=== PATIENT | female | born 1985 | race Caucasian/White ===

== ENCOUNTER 2024-12-15 10:49 | Outpatient (OUT) | payer MEDICARE, MEDICAID, SELFPAY ==
--- OUTSIDE RECORDS SUMMARY | 2024-12-05 13:10 | XMS_ITS | Encounter Summary ---
Author Organization [facility] Address [address] [place] [address] Care Team Providers Care Director Of Investigations Name Role Phone Alvarado, Amy Primary Care Provider [phone] Reason for Visit * Reason Comments Pre-op Visit Encounter Details Date Type Department Care Team ([facility] Contact Info) Description 12/05/2024 1:10 PM EDT Consult [facility] [address] [place] [address] Riley King DO [address] [place], [place] [id number] Pre-operative exam; Pain of ovary; History of ovarian cyst Social History Tobacco Use Types Packs/Day Years Used Date Smoking Tobacco: Former Cigarettes 1.5 15 Smokeless Tobacco: Never Alcohol Use Standard Drinks/Week Comments Never 0 (1 standard drink = 0.6 oz pur e alcohol) Comments No Sex and Gender Information Value Date Recorded Sex Assigned at Not on file Legal Sex Female 7:00 PM EDT Gender Identity Not on file Sexual Orientation Not on file documented as of this encounter Last Filed Vital Signs Vital Sign Reading Time Taken Comments Blood Pressure 128/78 12/05/2024 1:16 PM EDT Pulse - - Temperature - - Respiratory Rate - - Oxygen Saturation - - Inhaled Oxygen Concentration - - Weight 109 kg (240 lb 6.4 oz) 12/05/2024 1:16 PM EDT Height - - Body Mass Index 38.8 10/03/2024 3:20 PM EDT documented in this encounter Progress Notes * Jojo Rothman, RELIEF MASTER - 12/05/2024 1:10 PM EDT Reason for Appointment: Patient ID: Gin Ge is a 39 y.o. female who presents for Pre-op Visit Patient presents today for Pre Op appointment. Patient is scheduled to undergo Diagnostic Laparoscopy, possible FABIANA, possible FOE, possible BSO on 12/29/[address] King at [facility]. MEDICATIONS Current Outpatient Medications Medication Instructions alpha tocopherol (Vitamin E) 400 units capsule busPIRone (BUSPAR) 30 mg, 2 times daily clonazePAM (KlonoPIN) 1 MG tablet TAKE 1 TABLET BY ORAL ROUTE 4 TIMES PER DAY DIAGNOSIS CODE: F41.9 desvenlafaxine (PRISTIQ) 200 mg, Daily esomeprazole (NexIUM) [address] capsule TAKE 1 CAPSULE BY MOUTH TWICE DAILY BEFORE MEALS hydrOXYzine pamoate (Vistaril) 25 MG capsule TAKE 1 CAPSULE BY MOUTH 3 TIMES A DAY NEEDED FOR ANXIETY lamoTRIgine (LaMICtal) 100 MG tablet 1 tablet, Nightly lamoTRIgine (LaMICtal) 200 MG tablet TAKE 1 TABLET BY ORAL ROUTE PER AT BEDTIME TO TAKE WITH A 100 MG FOR A TOTAL OF 300 MG AT NIGHT methocarbamol (Robaxin) 500 MG tablet TAKE 1 TO 2 TABLETS TWICE A DAY NEEDED FOR MUSCLE PAIN ondansetron ODT (Zofran-ODT) 4 MG disintegrating tablet TAKE 1 TABLET BY MOUTH EVERY 8 HOURS NEEDED FOR NAUSEA AND VOMITING prazosin (Minipress) 2 MG capsule TAKE 2 CAPSULE BY ORAL ROUTE PER AT BEDTIME CHANGE IN DOSAGE pregabalin (LYRICA) 200 mg, 3 times daily traZODone (Desyrel) 100 MG tablet TAKE 3 TABLETS BY MOUTH AT BEDTIME Vraylar 6 MG capsule TAKE 1 CAPSULE BY MOUTH EVERY DAY AT BEDTIME ALLERGIES Allergies Allergen Reactions Amoxicillin-Pot Clavulanate Unknown Clindamycin Anaphylaxis Baclofen Unknown Latex Rash Naproxen Unknown Altered liver function Betamethasone Hallucinations Extreme anxiety Metronidazole GI intolerance Sulfamethoxazole-Trimethoprim Hallucinations Zonisamide Hallucinations zonegran PROBLEMS Active Ambulatory Problems Diagnosis Date Noted Localized osteoarthritis of right knee 10/09/2022 Acute pain of right knee 10/09/2022 Internal derangement of right knee 10/09/2022 S/P right knee arthroscopy 12/07/2022 Resolved Ambulatory Problems Diagnosis Date Noted No Resolved Ambulatory Problems Past Medical History: Diagnosis Date Anxiety Arthritis Bipolar 1 disorder (HCC) Depressed Fibromyalgia GERD (gastroesophageal reflux disease) Hepatitis Hyperlipemia Hypertension IBS (irritable bowel syndrome) PTSD (post-traumatic stress disorder) Spinal stenosis Spondylolisthesis HISTORY PAST MEDICAL HISTORY SOCIAL HISTORY Past Medical History: Diagnosis Date Anxiety Arthritis Bipolar 1 disorder (HCC) Depressed Fibromyalgia GERD (gastroesophageal reflux disease) Hepatitis Hyperlipemia Hypertension IBS (irritable bowel syndrome) PTSD (post-traumatic stress disorder) Spinal stenosis Spondylolisthesis Social History Tobacco Use Smoking status: Former Current packs/day: 1.50 Average packs/day: 1.5 packs/day for 15.0 years (22.5 ttl pk-yrs) Types: Cigarettes Smokeless tobacco: Never Vaping Use Vaping status: Never Used Substance Use Topics Alcohol use: Never Drug use: Never FAMILY HISTORY Family History Problem Relation Name Age of Onset Hypothyroidism Father Grandpa Diabetes Father Grandpa Mental illness Father Grandpa Hypertension Father Grandpa Heart disease Father Grandpa Cancer Maternal Grandmother Juhi Chime Lung disease Maternal Grandfather Don Chime Heart disease Maternal Grandfather Don Chime Stroke Maternal Grandfather Don Chime Cancer Maternal Grandfather Don Chime Diabetes Maternal Grandfather Don Chime SURGICAL HISTORY Past Surgical History: Procedure Laterality Date CHOLECYSTECTOMY 05/03/2005 HIP ARTHROPLASTY KNEE ARTHROPLASTY PARTIAL HYSTERECTOMY 05/03/2013 TONSILLECTOMY 05/03/1992 WISDOM TOOTH EXTRACTION REVIEW OF SYSTEMS Review of Systems: Review of Systems Constitutional: Negative. HENT: Negative. Eyes: Negative. Respiratory: Negative. Cardiovascular: Negative. Gastrointestinal: Negative. Genitourinary: Positive for pelvic pain. Musculoskeletal: Negative. Skin: Negative. Neurological: Negative. All other systems reviewed and are negative. Hematological: Negative. Endocrine: Negative. Allergic/Immunologic: Negative. OBJECTIVE Objective: Physical Exam Constitutional: Appearance: Normal appearance. She is well-developed. Cardiovascular: Rate and Rhythm: Normal rate and regular rhythm. Pulmonary: Effort: Pulmonary effort is normal. Breath sounds: Normal breath sounds. Abdominal: General: Bowel sounds are normal. There is no distension. Palpations: Abdomen is soft. Tenderness: There is no abdominal tenderness. There is no guarding or rebound. Musculoskeletal: General: No swelling. Normal range of motion. Right lower leg: No edema. Left lower leg: No edema. Neurological: Mental Status: She is alert and oriented to person, place, and time. Skin: General: Skin is warm and dry. Psychiatric: Mood and Affect: Mood normal. Behavior: Behavior normal. Vitals and nursing note reviewed. Exam conducted with a bumper and painter present. Vitals: Estimated body mass index is 38.8 kg/m?? as calculated from the following: Height as of 10/03/24: 5' 6 . Weight as of this encounter: 240 lb 6.4 oz. BP: 128/78 No LMP recorded (lmp unknown). Patient has had a hysterectomy. ASSESSMENT & PLAN ICD-10-CM 1. Pre-operative exam Z01.818 2. Pain of ovary N94.89 3. History of ovarian cyst Z87.42 Pre Op: Patient is doing well but has complaints of pelvic pain, ovarian cyst. I have discussed conservative management vs. surgical management with the patient in detail and patient desires surgical management at this time. Patient will undergo Diagnostic Laparoscopy, possible FABIANA, possible FOE, possible BSO on 12/29/24. Surgical consents were signed, mmc was reviewed, and patient is to proceed to [facility] OR. Follow Up: Patient is to follow up between 1-2 weeks post operative to assess proper healing and recovery fromprocedure. Documented by Jojo Rothman LPN on behalf of: Riley King DO documented in this encounter Plan of Treatment Upcoming Encounters Date Type Department Care Team (Late st Contact Info) Description 12/18/2024 1:00 PM EDT Office Visit [facility] [address] [place] [address] Gretel Burton PA [address] [place] [address] 01/04/2025 10:50 AM EDT Office Visit [facility] [address] [place] [address] Riley King DO [address] [place] [address] documented as of this encounter Visit Diagnoses Diagnosis Pre-operative exam Unspecified pre-operative examination Pain of ovary History of ovarian cyst Personal history of other genital system and obstetric disorders documented in this encounter Care Teams Director Of Investigations Relationship Specialty Start Date End Date Nica Alvarado DO [address] [place] [id number] PCP - General Family Medicine 10/09/22 documented as of this encounter
--- OUTSIDE RECORDS SUMMARY | 2024-12-15 10:56 | XMS_ITS | Clinical Summary ---
Author Organization [facility] Address [facility] [place] [address] Care Team Providers Care Mobile Paint Specialist Name Role Phone Kwesi Hernandez Unavailable [phone] Lesli Whatley CONSTRUCTION LINEMAN Unavailable Lesli Whatley CONSTRUCTION LINEMAN Primary Care Provider Lian Acosta APRN.CONSTRUCTION LINEMAN Unavailable Lazaro Peck MD Unavailable Allergies Active Allergy Reactions Criticality Noted Date Comments Adhesive Rash 10/16/2014 Amoxicillin-Pot Clavulanate Mental Status Change 10/16/2014 Baclofen Mental Status Change 07/09/2023 Sulfamethoxazole-Trimet hoprim Mental Status Change 10/20/2018 Clindamycin Anaphylaxis 10/16/2014 Metronidazole Vomiting 10/20/2018 Latex Rash 10/16/2014 Naproxen Unknown 10/16/2014 Altered liver function Betamethasone Dipropionate Mental Status Change 10/16/2014 Extreme anxiety Zonisamide Mental Status Change 10/20/2018 zonegran Medications desvenlafaxine ER (PRISTIQ) 100 mg 24 hr tablet Take 100 mg by mouth once daily. Takes 200mg Active clonazePAM (KLONOPIN) 1 mg tablet Take 1 mg by mouth four times daily. Active traZODone HCl 300 mg tablet Take 300 mg by mouth daily at bedtime. Active methocarbamol (ROBAXIN) 500 mg tablet Take 500 mg by mouth twice daily. Active Cetirizine (ZYRTEC) 10 mg cap Take by mouth daily at bedtime. Active PV W-O ORTEGA/FERROUS FUMARATE/FA (M-VIT ORAL) Take by mouth. Ac tive CALCIUM CARBONATE/VITAMIN D3 (CALCIUM + D ORAL) Take by mouth. Activ e Flaxseed Oil oil Act alexa alpha tocopheryl acetate (VITAMIN E) 400 unit capsule Take 400 Units by mouth twice daily. Active vitamin b complex (B-100 COMPLEX) tab Take 1 tablet by mouth once daily. Active FOLIC ACID ORAL Take by mouth. Active prazosin (MINIPRESS) 1 mg cap Take 3 capsules by mouth daily at bedtime. 5 Active Additional Information Patient taking differently: 4 mgORAL AT BEDTIME, Reason: Other, Informant: Patient, Reported on 08/17/2024 Pregabalin (LYRICA) 200 mg capsule Take 200 mg by mouth three times daily. Active busPIRone (BUSPAR) 15 mg tablet Take 30 mg by mouth twice daily. 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 Active estradiol (ESTRACE) 1 mg tablet Take 1 mg by mouth once daily. Active acetaminophen (ACETAMINOPHEN EXTRA STRENGTH) 500 mg tablet Take 1-2 tablets by mouth every 6 hours as needed for Pain. 60 tablet 0 Active hyoscyamine (LEVSIN) 0.125 mg tablet Take 1 tablet by mouth every 4 hours as needed. 60 tablet 2 5 Active esomeprazole (NEXIUM) 20 mg capsule Take 1 capsule by mouth two times a day before meals. 180 capsule 3 5 Active Active Problems Problem Noted Date Diagnosed Date Obesity (BMI 30-39.9) 01/03/2020 Assessment & Plan (01/03/2020 12:01 PM EDT): Assessment: Body mass index is 38.67 kg/m . Weight reduction encouraged. PONV (postoperative nausea and vomiting) 020 Irritable bowel syndrome wit h both constipation and diarrhea 11/02/2019 Assessment & Plan (11/02/2019 4:24 PM EDT): Assessment: meds as needed Bipolar 1 disorder 11/02/2019 Assessment & Plan (01/03/2020 12:01 PM EDT): Assessment: Pt. reports mood stable with meds Assessment & Plan (11/02/2019 4:24 PM EDT): Assessment: stable on meds Diaphoresis 09/13/2018 Gastroesophageal reflux disease 04/21/2018 Overview (04/21/2018): Added automatically from request for surgery [id number] Assessment & Plan (01/03/2020 12:00 PM EDT): Assessment: Medication for Control fo symptoms per Pt. report Assessment & Plan (11/02/2019 4:28 PM EDT): Assessment: controlled on rx Central hearing loss, bilateral 09/15/2016 Auditory neuropathy 09/15/2016 Chronic pain 10/16/2014 PTSD (post-traumatic stress disorder) Overview (10/16/2014): had to place child for adoption at age 13 Anxiety and depression Overview (10/16/2014): Lacy Mello [facility] counseling Assessment & Plan (11/02/2019 4:24 PM EDT): Assessment: stable on medications OCD (obsessive compulsive disorder) Fibromyalgia Assessment & Plan (01/03/2020 11:59 AM EDT): Assessment: Managed with meds Pt. reports stable Assessment & Plan (11/02/2019 4:23 PM EDT): Assessment: treated with B12 and meds Resolved Problems Problem Noted Date Diagnosed Date Resolved Date Night sweats 09/13/2018 11/02/2019 Smoker 11/02/2019 Immunizations Immunization Administration Dates Next Due influenza (IIV3) vaccine, tr ivalent (AFLURIA, FLULAVAL, FLUVIRIN, FLUZONE) 01/22/2011 influenza (IIV3) vaccine, tr ivalent, PF (AFLURIA, FLUARIX, FLULAVAL, FLUVIRIN, FLUZONE) 01/20/2016 influenza (IIV4) vaccine, ag e 6 mo - 64 yr, quadrivalent, PF (AFLURIA, FLUARIX, FLULAVAL, FLUZONE) 02/27/2019,02/23/2018,02/13/2015 influenza (ccIIV4) vaccine, age 6+ mo, quadrivalent, PF (FLUCELVAX) 03/30/2017 influenza vaccine, unspecified formulation 01/01 influenza vaccine, whole virus 02/01/2015,2013 tetanus diphtheria pertussis (Tdap) vaccine, age 7+ yr (ADACEL, BOOSTRIX) 01/06/2019,01/22/2011 Family History Medical History Relation Comments Arthritis Father GERD Father Stroke Maternal Grandfather Cancer Maternal Grandmother Arthritis Mother Diabetes Mother GERD Mother high blood pressure Mother LACTOSE INTOLERANCE Sister Relation Status Comments Father Alive Maternal Grandfather Maternal Grandmother Mother Alive Sister Social History Tobacco Use Types Packs/Day Years Used Date Smoking Tobacco: Former Cigarettes 0.5 17 0 08/22/1999 - 08/21/2016 Smokeless Tobacco: Never Tobacco Cessation:Counseling Given: Not Answered Alcohol Use Standard Drinks/Week Comments Not Currently 0 (1 standard drink = 0.6 oz pur e alcohol) social- rare PHQ-2 Answer Date Recorded PHQ-2 score 0 11/14/2018 Area Deprivation Index Answer Date Juan Jose rded National Score (1-100), lower number is lower ri sk 62 07/04/2024 State Score (1-10), lower number is lower risk 4 07/04/2024 Data from: https://www.neighborhoodatlas.medicine.[facility].edu/. Last address used for calculation [address] [facility] 07/04/2024 Comments No Sex and Gender Information Value Date Recorded Sex Assigned at Not on file Legal Sex Female 11:28 AM EDT Gender Identity Not on file Sexual Orientation Not on file Occupation Industry Job Start Date Job End Date [employer] Not on file Not on file Not on file Last Filed Vital Signs Vital Sign Reading Time Taken Comments Blood Pressure 140/90 08/17/2024 11:01 AM EDT Pulse 60 08/17/2024 11:01 AM EDT Temperature 36.7 C (98 F) 08/17/2024 11:01 AM EDT Respiratory Rate 16 07/09/2023 1:21 PM EST Oxygen Saturation 100% 07/09/2023 1:21 PM EST Inhaled Oxygen Concentration - - Weight 105.7 kg (233 lb) 08/17/2024 11:01 AM EDT Height 167.6 cm (5' 6 ) 08/17/2024 11:01 AM EDT Body Mass Index 37.61 08/17/2024 11:01 AM EDT Plan of Treatment Health Maintenance Due Date Last Done Comments HIV Screening 01/01/2002 Hepatitis C Screening 01/01/2002 Hepatitis B Vaccine (1 of 3 - 19+ 3-dose series) 01/01/2003 Cervical Cancer Screening 01/01/2005 HPV Vaccine (1 - 3-dose SCDM series) 01/01/2011 Medicare Annual Wellness Visit 12/02/2015 Mammogram Screening 2024 Influenza Vaccine (#1) 2025 9, 01/01/2019, 02/23/2018, Additional history exists DTaP,Tdap,Td Vaccine (3 - Td or Tdap) 01/06/2029 01/06/2019, 01/22/2011 Medical Devices Implanted Type Area Plasterer Apprentice Device Identifier Shelf Expiration Date Model / Serial / Lot Fibertak Knotless Hip Suture Lee W/#2 Fiberwire Cl Suture Implanted:Qty: 1 on 01/18/2020 at [facility] Lee Right: Bone - Hip [employer] 11/30/2024 [id number] / / [id number] Description:KNOTLESS HIP FIB ERTAK Fibertak Knotless Hip Suture Lee W/#2 Fiberwire Cl Suture Implanted:Qty: 1 on 01/18/2020 at [facility] Lee Right: Bone - Hip [employer] 11/30/2024 [id number] / / [id number] Description:KNOTLESS HIP FIB ERTAK Fibertak Knotless Hip Suture Lee W/#2 Fiberwire Cl Suture Implanted:Qty: 1 on 01/18/2020 at [facility] Lee Right: Bone - Hip [employer] 11/30/2024 [id number] / / [id number] Description:KNOTLESS HIP FIB ERTAK Insurance [place]ICAID [place] MEDICARE [place]ICARE [place] Care Teams Mobile Paint Specialist Relationship Specialty Start Date End Date Lesli Whatley, CONSTRUCTION LINEMAN [address] [place] [phone] PCP - General Family Medicine 08/10/18 Kwesi Hernandez [address] [place] [facility] [place] [address] Pain Management 09/17/14 Lesli Whatley, CONSTRUCTION LINEMAN [address] [facility] [place] [phone] Referring Family Medicine 08/08/18 Lian Acosta APRN.CONSTRUCTION LINEMAN [address] [facility] [address] [place] [address] Gastroenterology 06/16/23 Lazaro Peck MD [address] [facility] [address] [place] [address] Gastroenterology 06/16/23
--- OUTSIDE RECORDS SUMMARY | 2024-12-15 10:56 | XMS_ITS | Encounter Summary ---
Author Organization [facility] Address [address] [place] [address] Care Team Providers Care Housing Grant Analyst Name Role Phone Kwesi Hernandez Unavailable [phone] Lesli Whatley HEEL PADDER Unavailable Lesli Whatley HEEL PADDER Primary Care Provider Lian Acosta APRN.HEEL PADDER Unavailable Lazaro Peck MD Unavailable Source Comments In the event this information is protected by the Federal Confidentiality of Alcohol and Drug AbusePatient Records regulations: The Federal rules restrict any use of the information to criminally investigate or prosecute any alcohol or drug abuse patient.[facility] Encounter Details Date Type Department Care Team (Latest Contact Info) Description 11/21/2019 [facility] Medical Advice [facility] [address] [place], [place] [id number] Bonifacio Serrano MD [address] [place] [address] RE: Non-Urgent Medical Question Social History Tobacco Use Types Packs/Day Years Used Date Smoking Tobacco: Former Cigarettes 0.5 17 0 08/22/1999 - 08/21/2016 Smokeless Tobacco: Never Alcohol Use Standard Drinks/Week Comments Not Currently 0 (1 standard drink = 0.6 oz pur e alcohol) social- rare PHQ-2 Answer Date Recorded PHQ-2 score 0 11/14/2018 Comments No Sex and Gender Information Value Date Recorded Sex Assigned at Not on file Legal Sex Female 11:28 AM EDT Gender Identity Not on file Sexual Orientation Not on file 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 No / Unsure 11/17/2019 11:40 AM EDT documented as of this encounter Functional Status * Are you deaf or do you have serious difficulty hearing? Answer Date of Assessment Author No 10/16/2014 2:16 PM EDT Lorna Briones LPN * Are you blind or do you have serious difficulty seeing, even when wearing glasses? Answer Date of Assessment Author No 10/16/2014 2:16 PM EDT Lorna Briones LPN * Do you have serious difficulty walking or climbing stairs? Answer Date of Assessment Author Yes 10/16/2014 2:16 PM EDT Lorna Briones LPN * Do you have difficulty dressing or bathing? Answer Date of Assessment Author Yes 10/16/2014 2:16 PM EDT Lorna Briones LPN * Because of a physical, mental, or emotional condition, do you have difficulty doing errands alone such as visiting a doctor's office or shopping? Answer Date of Assessment Author Yes 10/16/2014 2:16 PM EDT Lorna Briones LPN documented as of this encounter Mental Status * Because of a physical, mental, or emotional condition, do you have serious difficulty concentrating, remembering, or making decisions? Answer Entry Date Author Yes 10/16/2014 2:16 PM EDT Lorna Briones LPN documented in this encounter Plan of Treatment Not on file documented as of this encounter Visit Diagnoses Not on filedocumented in this encounter Care Teams Housing Grant Analyst Relationship Specialty Start Date End Date Lesli Whatley, HEEL PADDER [address] [address] PCP - General Family Medicine 08/10/18 Kwesi Hernandez [address] [facility] [place] [address] Pain Management 09/17/14 Lesli Whatley, HEEL PADDER [address] [address] Referring Family Medicine 08/08/18 Lian Acosta APRN.HEEL PADDER [address] [place] [address] Gastroenterology 06/16/23 Lazaro Peck MD [address] [place] [address] Gastroenterology 06/16/23 documented as of this encounter
--- OUTSIDE RECORDS SUMMARY | 2024-12-15 10:56 | XMS_ITS | Encounter Summary ---
Author Organization [facility] Address [address] [place] [address] Care Team Providers Care Indigo Mixer Name Role Phone Ncia Alvarado Primary Care Provider [phone] Encounter Details Date Type Department Care Team ([facility] Contact Info) Description 12/03/2022 Clinisync Result Encounter [facility] External Department Unsolicited Amanuel Jj DO [address] [place] [address] Social History Tobacco Use Types Packs/Day Years Used Date Smoking Tobacco: Never Smokeless Tobacco: Never Alcohol Use Standard Drinks/Week Comments Never 0 (1 standard drink = 0.6 oz pur e alcohol) Comments Unknown Sex and Gender Information Value Date Recorded Sex Assigned at Not on file Legal Sex Female 7:00 PM EDT Gender Identity Not on file Sexual Orientation Not on file COVID-19 Exposure Response Date Recorded In the last 10 days, have yo u been in contact with someone who was confirmed or suspected to have Coronavirus/COVID-19? No / Unsure 11/19/2022 10:47 AM EDT documented as of this encounter Plan of Treatment Upcoming Encounters Date Type Department Care Team ([facility] Contact Info) Description 12/18/2024 1:00 PM EDT Office Visit [facility] [address] [place] [address] Gretel Burton PA [address] [place] [address] 01/04/2025 10:50 AM EDT Office Visit [facility] [address] [place] [place] [address] Riley King DO [address] [place] [address] documented as of this encounter Procedures Procedure Name Priority Date/Time Associated Diagnosis Comments US LE VENOUS DUPLEX RIGHT 12/03/2022 4:23 PM EDT documented in this encounter Results * US LE VENOUS DUPLEX RIGHT (12/03/2022 4:23 PM EDT) Anatomical Region Laterality Modality Other 12/03/2022 4:23 PM EDT Narrative 12/03/2022 5:22 PM EDT Exam Date/Time: 12/03/2022 17:12 EDT Reason for Exam: RIGHT CALF PAIN Report IMPRESSION: NO RIGHT LOWER EXTREMITY DVT IDENTIFIED. EXAM: US LE Venous Duplex Right DATE: 12/03/2022 CLINICAL HISTORY: RIGHT CALF PAIN. COMPARISON: None available. TECHNIQUE: Grayscale, compression, color and waveform Doppler analysis of the right lower extremity venous systems was performed with augmentation. Spectral Doppler waveforms were evaluated for spontaneity, phasicity and appropriate augmentation. FINDINGS: There is no deep or superficial venous thrombosis, abnormal masses, organized fluid collections, or other findings of concern identified within the right lower extremity. No DVT present within the visualized left common femoral vein. Ordering Provider: Amanuel Jj FINAL REPORT Dictated: 12/03/2022 5:19 pm Jagdeep White MD Signed (Electronic Signature): 12/03/2022 5:19 pm Signed by: Jagdeep White MD Transcribed by: ALFREDITO Technologist: ALMA Procedure Note Radiology, Radiologist, - 12/03/2022 Exam Date/Time: 12/03/2022 17:12 EDT Reason for Exam: RIGHT CALF PAIN Report IMPRESSION: NO RIGHT LOWER EXTREMITY DVT IDENTIFIED. EXAM: US LE Venous Duplex Right DATE: 12/03/2022 CLINICAL HISTORY: RIGHT CALF PAIN. COMPARISON: None available. TECHNIQUE: Grayscale, compression, color and waveform Doppler analysis ofthe right lower extremity venous systems was performed with augmentation. Spectral Doppler waveforms were evaluated for spontaneity, phasicity andappropriate augmentation. FINDINGS: There is no deep or superficial venous thrombosis, abnormal masses,organized fluid collections, or other findings of concern identified within the rightlower extremity. No DVT present within the visualized left common femoralvein. Ordering Provider: Amanuel Jj FINAL REPORT Dictated: 12/03/2022 5:19 pm Jagdeep White MD Signed (Electronic Signature): 12/03/2022 5:19 pm Signed by: Jagdeep White MD Transcribed by: ALFREDITO Technologist: ALMA Amanuel Jj DO [facility] Final Resu lt documented in this encounter Visit Diagnoses Not on filedocumented in this encounter Care Teams Indigo Mixer Relationship Specialty Start Date End Date Nica Alvarado DO [address] [place] [address] [facility] [place] [address] PCP - General Family Medicine 10/09/22 documented as of this encounter
--- OUTSIDE RECORDS SUMMARY | 2024-12-15 10:57 | XMS_ITS | Encounter Summary ---
Author Organization [facility] Address [facility] [place] [address] Care Team Providers Care Acid Adjuster Name Role Phone Kwesi Hernandez Unavailable [phone] Lesli Whatley MILITARY COMMUNICATIONS SPECIALIST Unavailable [phone] Lesli Whatley MILITARY COMMUNICATIONS SPECIALIST Primary Care Provider [phone] Lian Acosta APRN.MILITARY COMMUNICATIONS SPECIALIST Unavailable [phone] Lazaro Peck MD Unavailable Source Comments In the event this information is protected by the Federal Confidentiality of Alcohol and Drug AbusePatient Records regulations: The Federal rules restrict any use of the information to criminally investigate or prosecute any alcohol or drug abuse patient.[facility] Encounter Details Date Type Department Care Team (Late st Contact Info) Description 10/23/2019 Get Medical Advice General Surgery [address] [facility] [place] [address] Gilberto Mendoza III, MD [address] [place] [place], [place] [id number] RE: Non-Urgent Medical Question Social History Tobacco Use Types Packs/Day Years Used Date Smoking Tobacco: Former Cigarettes 0.5 17 0 08/22/1999 - 08/21/2016 Smokeless Tobacco: Never Alcohol Use Standard Drinks/Week Comments Not Currently 0 (1 standard drink = 0.6 oz pur e alcohol) social PHQ-2 Answer Date Recorded PHQ-2 score 0 11/14/2018 Comments No Sex and Gender Information Value Date Recorded Sex Assigned at Not on file Legal Sex Female 11:28 AM EDT Gender Identity Not on file Sexual Orientation Not on file 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 No / Unsure 10/26/2019 12:08 PM EDT documented as of this encounter Functional [...] Lorna Briones LPN documented in this encounter Miscellaneous Notes * Telephone Encounter - Celeste Florian) - 10/24/2019 9:57 AM EDT Discussed and reviewed films with Dr. Mendoza and will schedule for open repair of ventral incisional hernia. CUR completed and faxed to LN scheduling COVID order placed. I called patient and discussed surgery. Discussed risks of bleeding, infection, post operative pain, chronic pain, recurrence, bowel injury. Discussed post op lifting restrictions, no driving on narcotic pain meds, no submerging x 2 weeks post op. Patient asking for nausea medication. I advised will need to check with her PCP as do not provide medications prior to surgery. We discussed ED paramete rs for acute pain, incarceration. Patient voiced understanding. Advised of covid pre-op testing, self quarantine, wearing a mask into the facility and exposure risk discussion. Patient agreeable and ok to proceed. The patient was offered a surgery/procedure at a [facility] facility. The surgeon's printing sales representative and patient have discussed in detail the risk of exposure to and/or potential harm posed by the COVID-19 virus with having a surgery/procedure at this time versus the risk of delaying the surgery /procedure. It is not possible to know either the risk of delaying the surgery or procedure or chance of getting an infection with perfect accuracy, but a joint decision was made between the patient and the surgeon's printing sales representative to proceed at this time with the scheduled surgery/procedure as indicated on the consent form. * Telephone Encounter - Celeste Florian) - 10/23/2019 3:53 PM EDT Will confirm plan for hernia repair with Dr. Mendoza tomorrow. * Telephone Encounter - Josy Brown) - 10/23/2019 3:34 PM EDT Please review and advise on pt's mychart. documented in this encounter Plan of Treatment Not on file documented as of this encounter Results * PRE-PROCEDURE & PRE-OPERATIVE COVID (11/05/2019 1:40 PM EDT) COVID 19 Source [facility] Nasopharyngeal swab 0 9:39 PM EDT [facility] COVID 19 Result [facility] Negative for COVID19 (SARS CoV2) by PCR. Negative for COVID19 (SARS CoV2) by PCR. 0 6:11 AM EDT [facility] Comment: This test was developed and its performance characteristics determined by [facility]'s [facility]. This test has been authorized by FDA under an Emergency Use Authorization (EUA). This test has been validated in accordance with the FDA's Guidance Document Policy for Diagnostics Testing in Laboratories Certified to Perform High Complexity Testing under CLIA prior to Emergency use Authorization for Coronavirus Disease 2019 during the Public Health Emergency issued on July 01, 2019. Swab of internal nose (specimen) NASOPHARYNGEAL SWAB / Unknown 11/05/2019 1:40 PM EDT 11/05/2019 9:36 PM EDT Celeste Florian PA-C MICROBIOLOGY Edited R esult - Final [facility] [address] [place] [address] [facility] [address] [place] [address] documented in this encounter Visit Diagnoses Diagnosis Incisional hernia, without obstruction or gangrene- Primary Incisional hernia without mention of obstruction or gangrene documented in this encounter Care Teams Acid Adjuster Relationship Specialty Start Date End Date Lesli Whatley, MILITARY COMMUNICATIONS SPECIALIST [address] [place] [address] PCP - General Family Medicine 08/10/18 Kwesi Hernandez [address] [place] [address] Pain Management 09/17/14 Lesli Whatley, MILITARY COMMUNICATIONS SPECIALIST [address] [facility] [place] [address] Referring Family Medicine 08/08/18 Lian Acosta APRN.MILITARY COMMUNICATIONS SPECIALIST [address] [address] Gastroenterology 06/16/23 Lazaro Peck MD [address] [place] [address] Gastroenterology 06/16/23 documented as of this encounter
--- OUTSIDE RECORDS SUMMARY | 2024-12-15 10:57 | XMS_ITS | Encounter Summary ---
Author Organization [facility] Address [address] [place] [address] Care Team Providers Care Cyber Engineer Name Role Phone Kwesi Hernandez Unavailable [phone] Lesli Whatley SENIOR SECURITY ENGINEER Unavailable [phone] Lesli Whatley CNP Primary Care Provider [phone] Lian Acosta APRN.SENIOR SECURITY ENGINEER Unavailable [phone] Lazaro Peck MD Unavailable Source Comments In the event this information is protected by the Federal Confidentiality of Alcohol and Drug AbusePatient Records regulations: The Federal rules restrict any use of the information to criminally investigate or prosecute any alcohol or drug abuse patient.[facility] Encounter Details Date Type Department Care Team (Late st Contact Info) Description 05/19/2021 [place] [address] Provider, [facility] MRI Screening Questionnaire Completion Required Social History Tobacco Use Types Packs/Day Years [...] (1-100), lower number is lower ri sk Not on file 04/09/2020 State Score (1-10), lower number is lower risk N ot on file 04/09/2020 Data from: https://www.neighborhoodatlas.medicine.[facility]/. 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 No / Unsure 05/21/2021 12:31 PM EST documented as of this encounter Functional Status * Are you deaf or do you have serious difficulty hearing? Answer Date of Assessment Author No 10/16/2014 2:16 PM Lorna George LPN * Are you blind or do you have serious difficulty seeing, even when wearing glasses? Answer Date of Assessment Author No 10/16/2014 2:16 PM Lorna George LPN * Do you have serious difficulty walking or climbing stairs? Answer Date of Assessment Author Yes 10/16/2014 2:16 PM Lorna George LPN * Do you have difficulty dressing or bathing? Answer Date of Assessment Author Yes 10/16/2014 2:16 PM Lorna George LPN * Because of a physical, mental, or emotional condition, do you have difficulty doing errands alone such as visiting a doctor's office or shopping? Answer Date of Assessment Author Yes 10/16/2014 2:16 PM Lorna George LPN documented as of this encounter Mental Status * Because of a physical, mental, or emotional condition, do you have serious difficulty concentrating, remembering, or making decisions? Answer Entry Date Author Yes 10/16/2014 2:16 PM Lonra George LPN documented in this encounter Plan of Treatment Not on file documented as of this encounter Visit Diagnoses Not on filedocumented in this encounter Care Teams Cyber Engineer Relationship Specialty Start Date End Date Lesli Whatley, SENIOR SECURITY ENGINEER [address] [place] [address] PCP - General Family Medicine 08/10/18 Kwesi Hernandez [address] [facility] [place] [address] Pain Management 09/17/14 Lesli Whatley, DONOVAN [address] [address] Referring Family Medicine 08/08/18 Lian Acosta APRN.DONOVAN [address] [place] [address] Gastroenterology 06/16/23 Lazaro Peck MD [address] [facility] [address] [place] [address] Gastroenterology 06/16/23 documented as of this encounter
--- OUTSIDE RECORDS SUMMARY | 2024-12-15 10:57 | XMS_ITS | Encounter Summary ---
Author Organization [facility] Address [facility] [place] [address] Care Team Providers Care Emergency Department Rn Name Role Phone Kwesi Hernandez Unavailable [phone] Lesli Whatley MANAGER LEASING Unavailable [phone] Lesli Whatley MANAGER LEASING Primary Care Provider [phone] Lian Acosta APRN.MANAGER LEASING Unavailable Lazaro Peck MD Unavailable Source Comments In the event this information is protected by the Federal Confidentiality of Alcohol and Drug AbusePatient Records regulations: The Federal rules restrict any use of the information to criminally investigate or prosecute any alcohol or drug abuse patient.[facility] Encounter Details Date Type Department Care Team (Late st Contact Info) Description 11/02/2019 Patient Msg Pre Anesthesia [address] [place], [place] [id number] Nguyen Croft PA-C [address] [facility] [address] [place] [address] surgery instructions Social History Tobacco Use Types Packs/Day Years [...] 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 No / Unsure 11/02/2019 3:32 PM EDT documented as of this encounter [...] on filedocumented in this encounter Care Teams Emergency Department Rn Relationship Specialty Start Date End Date Lesli Whatley, MANAGER LEASING [address] [place] [address] PCP - General Family Medicine 08/10/18 Kwesi Hernandez [address] [facility] [address] Pain Management 09/17/14 Lesli Whatley, MANAGER LEASING [address] [place] [address] Referring Family Medicine 08/08/18 Lian Acosta APRN.MANAGER LEASING [address] [place] [address] Gastroenterology 06/16/23 Lazaro Peck MD [address] [place] [address] Gastroenterology 06/16/23 documented as of this encounter
--- OUTSIDE RECORDS SUMMARY | 2024-12-15 10:57 | XMS_ITS | Encounter Summary ---
Author Organization [facility] Address [address] [place] [address] Care Team Providers Care Chainstitch Seat Joiner Name Role Phone Kwesi Hernandez Unavailable [phone] Lesli Whatley EMT Unavailable [phone] Lesli Whatley CNP Primary Care Provider [phone] Lian Acosta APRN.EMT Unavailable Lazaro Peck MD Unavailable Source Comments In the event this information is protected by the Federal Confidentiality of Alcohol and Drug AbusePatient Records regulations: The Federal rules restrict any use of the information to criminally investigate or prosecute any alcohol or drug abuse patient.[facility] Encounter Details Date Type Department Care Team (Late st Contact Info) Description 02/23/2019 Patient Msg Medical Records [address] [place] [address] Provider, [facility] Prescribed Patient Education Video(s) Social History Tobacco Use Types Packs/Day Years Used Date Smoking Tobacco: Former Cigarettes 0.5 17 0 08/22/1999 - 08/21/2016 Smokeless Tobacco: Never Alcohol Use Standard Drinks/Week Comments Yes 0 (1 standard drink = 0.6 oz pur e alcohol) social PHQ-2 Answer Date Recorded PHQ-2 score 0 11/14/2018 Comments No Sex and Gender Information Value Date Recorded Sex Assigned at Not on file Legal Sex Female 11:28 AM EDT Gender Identity Not on file Sexual Orientation Not on file 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 [place] [address] Referring Family Medicine 08/08/18 Lian Acosta, JAYME.EMT [address] [place] [address] [address] [place] [address] Gastroenterology 06/16/23 Lazaro Peck MD [address] [place] [address] [address] [place] [address] Gastroenterology 06/16/23 documented as of this encounter
--- OUTSIDE RECORDS SUMMARY | 2024-12-15 10:57 | XMS_ITS | Encounter Summary ---
Author Organization [facility] Address [address] [place] [address] Care Team Providers Care Field Marketing Specialist Name Role Phone Kwesi Hernandez Unavailable [phone] Lesli Whatley PRECISION LENS GRINDER APPRENTICE Unavailable [phone] Lesli Whatley PRECISION LENS GRINDER APPRENTICE Primary Care Provider Lian Acosta APRN.PRECISION LENS GRINDER APPRENTICE Unavailable Lazaro Peck MD Unavailable Source Comments In the event this information is protected by the Federal Confidentiality of Alcohol and Drug AbusePatient Records regulations: The Federal rules restrict any use of the information to criminally investigate or prosecute any alcohol or drug abuse patient.[facility] Encounter Details Date Type Department Care Team (Latest Contact Info) Description 03/12/2021 Patient [facility] [address] [place], [place] [id number] Bonifacio Serrano MD [address] [place] [address] Request an Appointment Social History Tobacco Use Types Packs/Day Years [...] N ot on file 04/09/2020 Data from: https://www.neighborhoodatlas.[facility]/. 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 Not [...] Entry Date Author Yes 10/16/2014 2:16 PM Lorna George LPN documented in this encounter Plan of Treatment Not on file documented as of this encounter Visit Diagnoses Not on filedocumented in this encounter Care Teams Field Marketing Specialist Relationship Specialty Start Date End Date Lesli Whatley, PRECISION LENS GRINDER APPRENTICE [address] [place] [address] PCP - General Family Medicine 08/10/18 Kwesi Hernandez [address] [place] [facility] [place] [place] [address] Pain Management 09/17/14 Lesli Whatley, DONOVAN [address] [place] [phone] Referring Family Medicine 08/08/18 Lian Acosta APRN.DONOVAN [address] [place] [address] Gastroenterology 06/16/23 Lazaro Peck MD [address] [facility] [address] [place] [address] Gastroenterology 06/16/23 documented as of this encounter
--- OUTSIDE RECORDS SUMMARY | 2024-12-15 10:57 | XMS_ITS | Encounter Summary ---
Author Organization [facility] Address [address] [place] [address] Care Team Providers Care Echometer Engineer Name Role Phone Kwesi Hernandez Unavailable [phone] Lesli Whatley OFFENSIVE COORDINATOR Unavailable [phone] Lesli Whatley CNP Primary Care Provider [phone] Lian Acosta APRN.OFFENSIVE COORDINATOR Unavailable [phone] Lazaro Peck MD Unavailable Source Comments In the event this information is protected by the Federal Confidentiality of Alcohol and Drug AbusePatient Records regulations: The Federal rules restrict any use of the information to criminally investigate or prosecute any alcohol or drug abuse patient.[facility] Encounter Details Date Type Department Care Team (Late st Contact Info) Description 06/02/2021 [place] [address] Provider, [facility] MRI Screening Questionnaire Completion Required [...] N ot on file 04/09/2020 Data from: https://www.neighborhoodatlas.medicine.[place]/. 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 No / Unsure 06/03/2021 1:00 PM EST documented as of this encounter [...] of Assessment Author Yes 10/16/2014 2:16 PM CHANTELT Lorna Briones LPN * Do you have [...] on filedocumented in this encounter Care Teams Echometer Engineer Relationship Specialty Start Date End Date Lesli Whatley, OFFENSIVE COORDINATOR [address] [place] [address] PCP - General Family Medicine 08/10/18 Kwesi Hernandez [address] [facility] [place] [address] Pain Management 09/17/14 Lesli Whatley, DONOVAN [address] [place] [place] [phone] Referring Family Medicine 08/08/18 Lian Acosta APRN.DONOVAN [address] [place] [address] Gastroenterology 06/16/23 Lazaro Peck MD [address] [facility] [address] [place] [address] Gastroenterology 06/16/23 documented as of this encounter
--- OUTSIDE RECORDS SUMMARY | 2024-12-15 10:57 | XMS_ITS | Continuity of Care Document ---
Author Organization [facility] Address [address] [place] [address] Phone [phone] Care Team Providers Care Janitorial Assistant Name Role Phone Jenny Nica Care Team Information Inspector [employer] U navailable Allergies and adverse reactions Active Allergies Criticality Reaction Severity Comments Date Naproxen Unable to assess criticality INCREASED LFT'S Moderate 03/25/2015 Latex Unable to assess criticality (Rash) or (C/O a rash) Moderate 03/25/2015 Clindamycin Unable to assess criticality Anaphylaxis Severe 03/25/2015 Prednisone Unable to assess criticality anxiety Moderate 03/25/2015 Adhesives Unable to assess criticality (Rash) or (C/O a rash) Moderate 03/25/2015 Augmentin Unable to assess criticality AGGRESSION Severe 03/25/2015 Oral Flagyl Unable to assess criticality Nausea and vomiting Moderate 10/05/2019 Zonogran Unable to assess criticality CHANGE IN MENTATION Severe 10/05/2019 Baclofen Unable to assess criticality AGGRESSION Moderate 10/05/2019 Medications Active Medications SIG Qnty Indications Order ing Provider Date Umuyhmakub2ri Tablets 1 by mouth four times a day 360tabs K21.9 Ann Jordan, MSN, DIETARY CLERK 12/26/2019 Vitamin [id number] Capsules every day Unknown Estradiol 1MG QHS Unknown Lamictal 300MG QHS Unknown 0 Buspar 30 MG bid Unknown Uthxns3626aox Tablets every day Unknown Wukeicfuj153ct Tablets 1 tab by mouth three times a day as needed Unknown Vitamin B ComplexTablets 1 by mouth every day Unknown Flaxseed Sav2510le Capsules twice a day Unknown Calcium 600+[id number]-Zjgu Tablets Unknown Multi-Vitamin DailyTablets Unknown Gjwsnug259ll Tablets 1 by mouth twice a day Unknown Zyrtec Jljafri81bx Capsules every day Unknown Isbawk014wx Capsules tid Unknown Zjhzqlnae7jo Capsules 3 mg q hs Unknown Trazodone HJG377dz Tablets q hs Unknown Jpcnviea3io Tablets qid Unknown Pichxne677le Tablets ER 24HR 200 mg q am Unknown History Medications Kejjoqsj48gz Tablets DR 1 by mouth twice a day 30 min before meals Unknown - 10/05/2019 Vitamin B-1100mg Tablets Unkno wn - 10/05/2019 Vitamin B-6100mg Tablets Unkno wn - 10/05/2019 Poaijt01pf Capsules 1 tab by mouth three times a day before meals Unknown 000 - 10/05/2019 Stwzhjq81va Tablets Unknown - 01/12/2020 Vital Signs Date Vital Result Comment 12/26/2019 1:06pm Weight 231.00 lb Weight 104.782 kg BP Systolic 124 mmHg BP Diastolic 78 mmHg Heart Rate 69 /min Body Temperature 97.6 F Height 65 inches 5'5 BMI (Body Mass Index) 38.4 kg/m2 10/05/2019 8:03am Weight 220.00 lb Weight 99.792 kg Height 65 inches 5'5 BMI (Body Mass Index) 36.6 kg/m2 Results Test Acquired Date Facility Test Result H/L Range Note Enhanced PDF Report [id number] 07/09/2023 [facility] Enhanced PDF Report [id number] SEE IMAGE GI Pathology 07/09/2023 [facility] Clinical History Personal history <SEE NOTE> 1 Diagnosis (SEE NOTE) 2 Read By SEGUNDO FRANK Gross Description (SEE NOTE) 3 CPT Codes CPT Codes: 81985 <SEE NOTE> 4 CPT Disclaimer (SEE NOTE) 5 Reading Location [facility] <SEE NOTE> 6 Drop Wire Builder BARREL HEADER <SEE NOTE> 7 Lab Info (SEE NOTE) 8 GI Pathology 01/12/2020 [facility] Clinical History Heartburn. Diarr <SEE NOTE> 9 Diagnosis (SEE NOTE) 10 Read By DOUGLAS SCHOFIELD Gross Description (SEE NOTE) 11 CPT Codes (SEE NOTE) 12 CPT Disclaimer (SEE NOTE) 13 Reading Location [facility] <SEE NOTE> 14 Drop Wire Builder BARREL HEADER <SEE NOTE> 15 Lab Info (SEE NOTE) 16 GI Pathology 01/12/2020 [facility] Clinical History Heartburn. Diarr <SEE NOTE> 17 Diagnosis (SEE NOTE) 18 Read By DOUGLAS SCHOFIELD Gross Description (SEE NOTE) 19 CPT Codes (SEE NOTE) 20 CPT Disclaimer (SEE NOTE) 21 Reading Location [facility] <SEE NOTE> 22 Drop Wire Builder BARREL HEADER <SEE NOTE> 23 Lab Info (SEE NOTE) 24 Enhanced PDF Report [id number] 01/12/2020 [facility] Enhanced PDF Report [id number] SEE IMAGE GI Pathology 10/05/2019 [facility] Clinical Information (SEE NOTE) 25 Gross Descripti on Part (SEE NOTE) 26 Diagnosis (SEE NOTE) 27 Read By DONITA SO <SEE NOTE> 28 Reading Location [facility] <SEE NOTE> 29 Enhanced PDF Report [id number] 10/05/2019 [facility] Enhanced PDF Report [id number] SEE IMAGE Enteric Bacterial Panel By PCR 07/27/[address] [address] [phone] Shigella/Eiec Dna Not Detected Campy jejun/col i Dna Not Detected Shiga toxin gene(s) Not Detected Salmonella spp. Dna Not Detected Sed Rate Westergren 07/27/2019 [facility] [address] [place] [address] [phone] Sed Rate Westergren 2 mm/hr 0-20 30 C-Reactive Protein 07/27/2019 [facility] [address] [place] [phone] [phone] C-Reactive Protein 0.3 mg/dL <0.9 31 Comprehensive Metabolic Panel 07/27/2019 [facility] [address] [place] [address] [phone] Protein, Total 6.4 g/dL 6.3-8.0 Albumin 4.6 g/dL 3.9-4.9 Calcium, Total 10.1 mg/dL 8.5-10 .2 Bilirubin, Total 0.4 mg/dL 0.2-1 .3 Alkaline Phosphatase 81 U/L 34-123 Ast 23 U/L 13-35 Glucose 73 mg/dL Low 74-99 32 BUN 10 mg/dL 7-21 Creatinine 0.80 mg/dL 0.58-0.96 Sodium 138 mmol/L 136-144 Potassium 4.0 mmol/L 3.7-5.1 Chloride 100 mmol/L 97-105 Co2 28 mmol/L 22-30 Anion Gap 10 mmol/L 9-18 Alt 18 U/L 7-38 eGFR- Amer. >60 eGFR-All Other Races >60 . 33 CBC And Differential 07/27/2019 [facility] [address] [place] [address] WBC 7.63 k/uL 3.70-11.0 0 RBC 4.08 m/uL 3.90-5.20 Hemoglobin 13.4 g/dL 11.5-15.5 Hematocrit 39.3 % 36.0-46.0 MCV 96.3 fL 80.0-100. 0 MCH 32.8 pg 26.0-34.0 MCHC 34.1 g/dL 30.5-36.0 RDW-CV 11.9 % 11.5-15.0 Platelet Count 243 k/uL 150-400 MPV 9.5 fL 9.0-12.7 Neut% 58.4 % Abs Neut 4.44 k/uL 1.45-7.50 Lymph% 33.6 % Abs Lymph 2.56 k/uL 1.00-4.00 Dakota% 5.8 % Abs Dakota 0.44 k/uL <0.87 Eosin% 1.7 % Abs Eosin 0.13 k/uL <0.46 Baso% 0.5 % Abs Baso 0.04 k/uL <0.11 NRBCs 0.0 /100WBC 0 Absolute nRBC <0.01 k/uL <0.01 Dtype Auto Diff C difficile PCR 07/27/2019 [facility] [address] [place] [address] C difficile PCR Negative for C. <SEE NOTE> 34 Calprotectin, Fecal 07/27/2019 [facility] [address] [place] [address] Calprotectin, Fecal 58.3 mg/kg High <50.0 Calprotectin Interp Borderline Calprotectin Comment INTERPRETIVE INF <SEE NOTE> 35 C difficile PCR 04/16/2017 [facility] Lab- Admitting [address] [place] [address] C difficile PCR Negative for C. <SEE NOTE> 36 Ova and Parasite Scr 04/16/2017 [facility] Lab [address] [address] [phone] Ova and Parasite Scr Culture Result - <SEE NOTE> 37 Ova and Parasite Ex 04/16/[address] [address] [phone] Ova and Parasite Ex Culture Result - <SEE NOTE> 38 Fecal Fat/Qual 04/16/[address] [address] [phone] Fecal Fat/Qual Test Result - Le <SEE NOTE> 39 Fecal Lactoferrin 04/16/[address] [address] [phone] Fecal Lactoferrin Test Result - Ne <SEE NOTE> 40 Stool Culture 04/16/[address] [address] Stool Culture Campylobacter EI <SEE NOTE> 41 Fecal Occult Bld Tst 04/14/2017 [facility] [address] [address] [phone] Fecal Occult Bld Tst Negative Negative 42 CBC And Differential 04/12/[address] [id number] [phone] WBC 5.83 k/uL 3.70-11.0 0 RBC 3.94 m/uL 3.90-5.20 Hemoglobin 13.2 g/dL 11.5-15.5 Hematocrit 39.1 % 36.0-46.0 MCV 99.2 fL 80.0-100. 0 MCH 33.5 pg 26.0-34.0 MCHC 33.8 g/dL 30.5-36.0 RDW-CV 12.2 % 11.5-15.0 Platelet Count 247 k/uL 150-400 MPV 9.9 fL 9.0-12.7 Neut% 61.4 % Abs Neut 3.56 k/uL 1.45-7.50 Lymph% 30.9 % Abs Lymph 1.80 k/uL 1.00-4.00 Dakota% 6.0 % Abs Dakota 0.35 k/uL <0.87 Eosin% 1.2 % Abs Eosin 0.07 k/uL <0.46 Baso% 0.5 % Abs Baso 0.03 k/uL <0.11 NRBCs 0.0 /100WBC 0 Absolute nRBC <0.01 k/uL <0.01 Dtype Auto Diff Comp Metabolic Panel 04/12/2017 [facility] Lab- Admitting [place], [place] [phone] Protein, Total 6.5 g/dL 6.3-8.0 Albumin 4.5 g/dL 3.9-4.9 Calcium, Total 9.0 mg/dL 8.5-10. 2 Bilirubin, Total 0.3 mg/dL 0.2-1 .3 Alkaline Phosphatase 80 U/L 32-117 Ast 28 U/L 13-35 Glucose 79 mg/dL 74-99 43 BUN 13 mg/dL 7-21 Creatinine 0.72 mg/dL 0.58-0.96 Sodium 137 mmol/L 136-144 Potassium 3.9 mmol/L 3.7-5.1 Chloride 100 mmol/L 97-105 Co2 26 mmol/L 22-30 Anion Gap 11 mmol/L 9-18 Alt 20 U/L 7-38 eGFR- Amer. >60 eGFR-All Other Races >60 . 44 TSH 04/12/2017 [facility] Lab- Admitting [address] [place], [place] [phone] TSH 1.250 uU/mL 0.400-5.5 00 45 Celiac Screen With Reflex 04/12/2017 [facility] Lab- Admitting [address] [place] [address] IgA 85 mg/dL 78-391 Transglutaminas e IgA 4 units <20 46 Interpretation No serolog ic ran <SEE NOTE> <See Note> 47 Sodium, Stool 04/12/2017 [facility] Lab- Admitting [address] [place] [address] Sodium, Stool Test Not Perform <SEE NOTE> mmol/L 48 Potassium, Stool 04/12/2017 [facility] Lab- Admitting [address] [place] [address] Potassium, Stool Test Not Perform <SEE NOTE> mmol/L 49 GI Histology Plus 04/24/2015 Mid/D2 Diagnosis Summar <SEE NOTE> 50 Eg Junction Diagnosis Summar <SEE NOTE> 51 Sigmoid Diagnosis [place]mar <SEE NOTE> 52 Pathology Report SEE IMAGE 1 Personal history of adenoma less than 10 mm in size. 2 COLON, RANDOM BIOPSY : NO SIGNIFICANT PATHOLOGY. 3 RANDOM COLON BIOPSY Received in formalin are multiple fragments of guadarrama tissue measuring 1.5 x 0.1 x 0.1 cm in aggregate. The specimen is submitted entirely in one cassette. 4 CPT Codes: [id number], [id number] 5 Intrakr. [facility] NO RESPONSIBILITY FOR THE ACCURACY OF CPT CODES PROVIDED WHICH ARE FOR INFORMATIONAL PURPOSES ONLY. CPT CODES ARE PAYOR SPECIFIC AND CPT CODING IS THE SOLE RESPONSIBILITY OF THE BILLING ENTITY. 6 Formerly [facility] 7 BARREL HEADER: MONSERRAT SO M.D. 8 [facility], [facility] [facility],[place] [address] [phone] Heartburn. Diarrhea. 10 A. DUODENUM, BIOPSY: DUODENAL MUCOSA WITH NO SIGNIFICANT PATHOLOGIC CHANGE. COMMENT: The villous architecture is preserved, and there is no evidence of intraepithelial lymphocytosis. There is no evidence of celiac sprue. A special stain (Alcian Blue/PAS) to identify Whipples disease is negative, and no parasites are seen. 11 A. Duodenum Receiv ed in formalin are multiple fragments of guadarrama tissue measuring 2.6 x 0.2 x 0.1 cm in aggregate. The specimen is submitted entirely in a single cassette. 12 [id number] 13 Intrakr. [facility] NO RESPONSIBILITY FOR THE ACCURACY OF CPT CODES PROVIDED WHICH ARE FOR INFORMATIONAL PURPOSES ONLY. CPT CODES ARE PAYOR SPECIFIC AND CPT CODING IS THE SOLE RESPONSIBILITY OF THE BILLING ENTITY. 14 [facility] 15 BARREL HEADER: MONSERRAT SO M.D. 16 [facility], 30 [facility], [facility] [address], [place], [place] [address] [phone] Heartburn. Diarrhea. 18 B. STOMACH, GREATER CURVATURE/BODY, BIOPSY: GASTRIC BODY-TYPE MUCOSA WITH FOCAL MINIMAL CHRONIC INFLAMMATION. COMMENT: A special stain (Alcian Blue/PAS) shows no evidence of intestinal metaplasia. A separate special stain (Giemsa) shows no evidence of Helicobacter pylori. 19 B. Greater curvatur e Received in formalin are five fragments of guadarrama tissue measuring 1.8 x 0.2 x 0.1 cm in aggregate. The specimen is submitted entirely in a single cassette. The gross evaluation was performed at [facility] [address] [place] [address]. 20 [id number] 21 [facility] NO RESPONSIBILITY FOR THE ACCURACY OF CPT CODES PROVIDED WHICH ARE FOR INFORMATIONAL PURPOSES ONLY. CPT CODES ARE PAYOR SPECIFIC AND CPT CODING IS THE SOLE RESPONSIBILITY OF THE BILLING ENTITY. 22 [facility] 23 BARREL HEADER: MONSERRAT SO M.D. 24 [facility], 30 [facility], [facility] [address] [place], [place] [id number] [phone] Clinically significa nt diarrhea of unexplained origin. Family history of Crohn's disease. 26 Random Received in formalin are multiple fragments of guadarrama tissue measuring 4.1 x 0.2 x 0.1 cm in aggregate. The specimen is submitted entirely in a single cassette. The gross evaluation was performed at [facility] [place] [address] [facility]. [address] [place] [address]. 27 COLON, RANDOM, BIOPS IES: TUBULAR ADENOMA SEGMENTS OF COLONIC MUCOSA WITH NO DIAGNOSTIC ABNORMALITY COMMENT: A single fragment of colonic mucosa involved by a minute tubular adenoma is identified. The remainder of the segments of colonic tissue show no evidence of significant architectural inflammatory changes. There is no evidence of lymphocytic or collagenous colitis. There is no evidence of malignancy. 28 DONITA SO 29 Formerly [facility] 30 [facility] [address] [place] [phone] 31 [facility] [address] [phone] 32 The [place] Diabete s Association (ADA) provides guidance for cutoff values for fasting glucose and random glucose. The ADA defines fasting as no caloric intake for at least 8 hours. Fasting plasma glucose results between 100 to 125 mg/dL indicate increased risk for diabetes (prediabetes). Fasting plasma glucose results greater than or equal to 126 mg/dL meet the criteria for diagnosis of diabetes. In the absence of unequivocal hyperglycemia, results should be confirmed by repeat testing. In a patient with classic symptoms of hyperglycemia or hyperglycemic crisis, random plasma glucose results greater than or equal to 200 mg/dL meet the criteria for diagnosis of diabetes. Reference: Standards of Medical Care in Diabetes 2016, [place] Diabetes Association. Diabetes Care. 2016.39(Suppl 1). 33 eGFR (Estimated GFR) Units of measure: mL/min/1.73 meters squared eGFR is derived from the reexpressed MDRD Study equation using the following parameters: serum creatinine, age, gender and race. The creatinine assay has been calibrated to be traceable to IDMS. An eGFR <60 mL/min/1.73m2 for >3 months is consistent with chronic kidney disease. Refer to KDOQI guidelines for clinical interpretation. In patients with unstable renal function, e.g. those with acute kidney injury, the eGFR may not accurately reflect actual GFR. 34 Negative for C. diff icile toxin by PCR 35 INTERPRETIVE INFORMA TION: INTERPRETIVE INFORMATION: Calprotectin, Fecal <50.0 mg/kg : Normal 50.0-120.0 mg/kg: Borderline. Test should be re-evaluated in 4-6 weeks. >120.0 mg/kg : Abnormal Calprotectin results generated by the FDA-approved QUANTA Lite extended range assay cannot be directly compared to those determined by other methods. For assistance with interpretation of serial testing results in patients with samples submitted prior to February 15, 2018, please contact the laboratory ([phone]) to discuss options. 36 Negative for C. diff icile toxin by PCR 37 Culture Result - Negative for Giardia lamblia and Cryptosporidium species by EIA. 38 Culture Result - No parasites seen. 39 Test Result - Less than 100 fatty acid globules observed per high power field (normal range is <100 fatty acid globules) 40 Test Result - Negative for lactoferrin, which may indicate the absence of fecal white blood cells 41 Campylobacter EIA - Negative for Campylobacter species by EIA. Shiga Toxin - Negative for Shiga toxin 1 and 2 by EIA Culture Result - Negative for Salmonella and Shigella sp. Negative for Escherichia coli O157:H7 42 This test was jb ped and its performance characteristics determined by [facility]'s [facility] [place] ([facility]). It has not been cleared or approved by the FDA. [facility] is regulated under CLIA as qualified to perform high-complexity testing. This test is used for clinical purposes. It should not be regarded as investigational or for research. 43 The [place] Diabete s Association (ADA) provides guidance for cutoff values for fasting glucose and random glucose. The ADA defines fasting as no caloric intake for at least 8 hours. Fasting plasma glucose results between 100 to 125 mg/dL indicate increased risk for diabetes (prediabetes). Fasting plasma glucose results greater than or equal to 126 mg/dL meet the criteria for diagnosis of diabetes. In the absence of unequivocal hyperglycemia, results should be confirmed by repeat testing. In a patient with classic symptoms of hyperglycemia or hyperglycemic crisis, random plasma glucose results greater than or equal to 200 mg/dL meet the criteria for diagnosis of diabetes. Reference: Standards of Medical Care in Diabetes 2016, [place] Diabetes Association. Diabetes Care. 2016.39(Suppl 1). 44 eGFR (Estimated GFR) Units of measure: mL/min/1.73 meters squared eGFR is derived from the reexpressed MDRD Study equation using the following parameters: serum creatinine, age, gender and race. The creatinine assay has been calibrated to be traceable to IDMS. An eGFR <60 mL/min/1.73m2 for >3 months is consistent with chronic kidney disease. Refer to KDOQI guidelines for clinical interpretation. In patients with unstable renal function, e.g. those with acute kidney injury, the eGFR may not accurately reflect actual GFR. 45 If the patient is pr egnant, TSH reference range varies by gestational period: First Trimester 0.100-2.500 uU/mL Second Trimester 0.200-3.000 uU/mL Third Trimester 0.300-3.000 uU/mL References: 1. De Joanie L, Hieu M, River EK, et al. Management of Thyroid Dysfunction during and : An Endocrine Society Clinical Practice Guideline. J Clin Endocrinol Metab, 2012:97:1915-3263. 2. Bran JIMENEZ. Overview of thyroid disease in . UpToDate. 2016. Accessed on October 18, 2015. 46 Negative : < 20 Unit s Weak Positive : 20 - 30 Units Moderate Pos to Strong Pos: >30 Units 47 No serologic evidenc e of celiac disease. 48 Test Not Performed (NOTE) Test not performed. Specimen submitted is too viscous for testing. A credit will be issued. INTERPRETIVE INFORMATION: Fecal Sodium A reference interval has not been established for fecal specimens. Test developed and characteristics determined by [employer]. See Compliance Statement B: [employer] Performed by [employer], [address] [facility] [place] [id number] [email or web address], Jackson Davey MD, Lab. Director 49 Test Not Performed (NOTE) Test not performed. Specimen submitted is too viscous for testing. A credit will be issued. INTERPRETIVE INFORMATION: Fecal Potassium A reference interval has not been established for fecal specimens. Test developed and characteristics determined by [employer]. See Compliance Statement B: [employer] Performed by [employer], [address] [facility] [address] [email or web address], Jackson Davey MD, Lab. Director 50 Diagnosis Summary : Fragments of unremarkable duodenal mucosa with normal villous architecture, no pathologic findings. MicroScopic Description:No evidence of celiac sprue, no Giardia identified. Grossing Description: Mid/D2 Received in formalin are 3 fragments of guadarrama tissue measuring 1.0 x 0.2 x 0.1 cm in aggregate. The specimen is submitted entirely in a single cassette. 51 Diagnosis Summary : Fragments of distal esophageal squamous mucosa with reactive epithelial changes. MicroScopic Description:No evidence of intraepithelial eosinophils, active esophagitis, intestinal metaplasia (confirmed by a negative Alcian Blue stain), dysplasia or malignancy. PAS-fungal stain is negative for Asya organisms. Grossing Description: EG Junction Received in formalin are 2 fragments of guadarrama tissue measuring 0.5 x 0.2 x 0.1 cm in aggregate. The specimen is submitted entirely in a single cassette. 52 Diagnosis Summary : Fragments of colonic mucosa with no pathologic findings. MicroScopic Description:No evidence of microscopic colitis, cryptitis, crypt abscesses, granulomas or dysplasia. Grossing Description: Sigmoid Received in formalin are multiple fragments of guadarrama tissue measuring 2.4 x 0.2 x 0.1 cm in aggregate. The specimen is submitted entirely in a single cassette. Electronically signed by : Dr.Yao-Chang Hassan on :04/30/2015 06:30:52
--- OUTSIDE RECORDS SUMMARY | 2024-12-15 10:57 | XMS_ITS | Encounter Summary ---
Author Organization [facility] Address [address] [place] [address] Care Team Providers Care Section Hand Name Role Phone Nica Alvarado Primary Care Provider [phone] Encounter Details Date Type Department Care Team (Late Contact Info) Description 09/05/2024 Abstract [facility] [address] [facility] [place] [address] Baldo Edmond, DPM FACFAS [address] [facility] [place] [address] Social History Tobacco Use Types Packs/Day Years [...] on file documented as of this encounter Plan of Treatment Upcoming Encounters Date Type Department Care Team (Late Contact Info) Description 12/18/2024 1:00 PM EDT Office Visit [facility] [address] [place] [address] Gretel Burton PA [address] [place] [address] 01/04/2025 10:50 AM EDT Office Visit [facility] [address] [phone] Riley King DO [address] [place] [address] documented as of this encounter Visit Diagnoses Not on filedocumented in this encounter Care Teams Section Hand Relationship Specialty Start Date End Date Nica Alvarado DO [address] [place] [phone] PCP - General Family Medicine 10/09/22 documented as of this encounter
--- OUTSIDE RECORDS SUMMARY | 2024-12-15 10:57 | XMS_ITS | Encounter Summary ---
Author Organization [facility] Address [address] [facility] [place] [address] Care Team Providers Care Magnetic Prospecting Supervisor Name Role Phone Nica Alvarado Primary Care Provider [phone] Encounter Details Date Type Department Care Team (Late Contact Info) Description 11/24/2022 Orders Only [facility] [address] [place] [address] Amanuel Jj DO [address] [place] [address] Localized osteoarthritis of right knee (Primary Dx) Social History Tobacco Use Types Packs/Day Years [...] Office Visit [facility] [address] [place] [address] Gretel Burton PA [address] [place] [phone] 01/04/2025 10:50 AM EDT Office Visit [facility] [address] [place] [place] [phone] Riley King DO [address] [facility] [place] [address] documented as of this encounter Visit Diagnoses Diagnosis Localized osteoarthritis of right knee- Primary documented in this encounter Care Teams Magnetic Prospecting Supervisor Relationship Specialty Start Date End Date [place] [phone] PCP - General Family Medicine 10/09/22 documented as of this encounter
--- OUTSIDE RECORDS SUMMARY | 2024-12-15 10:57 | XMS_ITS | Encounter Summary ---
Author Organization [facility] Address [facility] [place] [address] Care Team Providers Care Snowmobile Mechanic Name Role Phone Kwesi Hernandez Unavailable [phone] Lesli Whatley FOOD DEMONSTRATOR Unavailable [phone] Lesli Whatley FOOD DEMONSTRATOR Primary Care Provider [phone] Lian Acosta COMPOSITE LAMINATOR.FOOD DEMONSTRATOR Unavailable [phone] Lazaro Peck MD Unavailable Source Comments In the event this information is protected by the Federal Confidentiality of Alcohol and Drug AbusePatient Records regulations: The Federal rules restrict any use of the information to criminally investigate or prosecute any alcohol or drug abuse patient.[facility] Encounter Details Date Type Department Care Team (Late st Contact Info) Description 11/29/2019 Patient Msg Gastroenterology [address] [place] [address] Ann Jordan COMPOSITE LAMINATOR.FOOD DEMONSTRATOR [address] [place], [place] [id number] Stomach medications Social History Tobacco Use Types Packs/Day Years [...] 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 on file Not [...] on filedocumented in this encounter Care Teams Snowmobile Mechanic Relationship Specialty Start Date End Date Lesli Whatley, FOOD DEMONSTRATOR [address] [place] [address] PCP - General Family Medicine 08/10/18 Kwesi Hernandez [address] [facility] [place] [address] Pain Management 09/17/14 Lesli Whatley, FOOD DEMONSTRATOR [address] [place] [address] Referring Family Medicine 08/08/18 Lian Acosta APRN.FOOD DEMONSTRATOR [address] [place] [address] Gastroenterology 06/16/23 Lazaro Peck MD [address] [facility] [address] [place] [address] Gastroenterology 06/16/23 documented as of this encounter
--- OUTSIDE RECORDS SUMMARY | 2024-12-15 10:57 | XMS_ITS | Encounter Summary ---
Author Organization [facility] Address [address] [place] [address] Care Team Providers Care Control System Manager Name Role Phone Kwesi Hernandez Unavailable [phone] Lesil Whatley PROOFER APPRENTICE Unavailable Lesli Whatley PROOFER APPRENTICE Primary Care Provider [phone] Lian Acosta APRN.PROOFER APPRENTICE Unavailable Lazaro Peck MD Unavailable Source Comments In the event this information is protected by the Federal Confidentiality of Alcohol and Drug AbusePatient Records regulations: The Federal rules restrict any use of the information to criminally investigate or prosecute any alcohol or drug abuse patient.[facility] Encounter Details Date Type Department Care Team (Late st Contact Info) Description 02/07/2019 Get Medical Advice Rheumatology [address] [id number] Nikko Wills MD, PhD [address] [place] [address] RE: Test Result Question Social History Tobacco Use Types Packs/Day [...] Industry Job Start Date Job End Date [employer]ATIONS [employer] Not on file Not on file Not [...] on filedocumented in this encounter Care Teams Control System Manager Relationship Specialty Start Date End Date Lesli Whatley CNP [address] [place] [address] [facility] [place] [address] PCP - General Family Medicine 08/10/18 Kwesi Hernandez [address] [place] [address] Pain Management 09/17/14 Lesli Whatley, PROOFER APPRENTICE [address] [place] [address] Referring Family Medicine 08/08/18 Lian Acosta APRN.PROOFER APPRENTICE [address] [facility] 200 [place] [address] Gastroenterology 06/16/23 Lazaro Peck MD [address] [facility] [address] [place] [address] Gastroenterology 06/16/23 documented as of this encounter
--- OUTSIDE RECORDS SUMMARY | 2024-12-15 10:57 | XMS_ITS | Encounter Summary ---
Author Organization [facility] Address [address] [place] [address] Care Team Providers Care Card Folder Name Role Phone Kwesi Hernandez Unavailable [phone] Lesli Whatley BLASTING ENTRY SPECIALIST Unavailable [phone] Lesli Whatley BLASTING ENTRY SPECIALIST Primary Care Provider Lian Acosta APRN.BLASTING ENTRY SPECIALIST Unavailable Lazaro Peck MD Unavailable Source Comments In the event this information is protected by the Federal Confidentiality of Alcohol and Drug AbusePatient Records regulations: The Federal rules restrict any use of the information to criminally investigate or prosecute any alcohol or drug abuse patient.[facility] Encounter Details Date Type Department Care Team (Latest Contact Info) Description 06/26/2021 Patient [facility] [address] [place] [address] Bonifacio Serrano MD [address] [place] [address] Request an Appointment Social History [...] N ot on file 04/09/2020 Data from: https://www.neighborhoodatlas.[facility]/. 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 No / Unsure 06/24/2021 3:12 PM EST documented as of this encounter [...] of Assessment Author Yes 10/16/2014 2:16 PM EDLorna Owusu LPN documented as of this encounter Mental [...] on filedocumented in this encounter Care Teams Card Folder Relationship Specialty Start Date End Date Lesli Whatley, BLASTING ENTRY SPECIALIST [address] [facility] [place] [address] PCP - General Family Medicine 08/10/18 Kwesi Hernandez [address] [facility] [place] [address] Pain Management 09/17/14 Lesli Whatley, BLASTING ENTRY SPECIALIST [address] [facility] [place] [place] [address] Referring Family Medicine 08/08/18 Lian Acosta APRN.BLASTING ENTRY SPECIALIST [address] [place] [address] Gastroenterology 06/16/23 Lazaro Peck MD 850 [facility] 200 [place] [address] Gastroenterology 06/16/23 documented as of this encounter
--- OUTSIDE RECORDS SUMMARY | 2024-12-15 10:57 | XMS_ITS | Encounter Summary ---
Author Organization [facility] Address [address] [place] [address] Care Team Providers Care Wood Preparation Supervisor Name Role Phone Kwesi Hernandez Unavailable [phone] Lesli Whatley MANAGER SMALL BUSINESS Unavailable [phone] Lesli Whatley MANAGER SMALL BUSINESS Primary Care Provider Lian Acosta APRN.MANAGER SMALL BUSINESS Unavailable Lazaro Peck MD Unavailable Source Comments In the event this information is protected by the Federal Confidentiality of Alcohol and Drug AbusePatient Records regulations: The Federal rules restrict any use of the information to criminally investigate or prosecute any alcohol or drug abuse patient.[facility] Encounter Details Date Type Department Care Team (Late st Contact Info) Description 01/23/2019 Get Medical Advice Rheumatology [address] [phone] Nikko Wills MD, PhD [address] [place] [address] RE: Non-Urgent Medical Question Social [...] 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 Not [...] on filedocumented in this encounter Care Teams Wood Preparation Supervisor Relationship Specialty Start Date End Date Lesli Whatley CNP [address] [place] [address] AN[facility] [place] [address] PCP - General Family Medicine 08/10/18 Kwesi Hernandez [address] [place] [address] Pain Management 09/17/14 Lesli Whatley, MANAGER SMALL BUSINESS [address] [place] [address] Referring Family Medicine 08/08/18 Lian Acosta, JAYME.MANAGER SMALL BUSINESS 850 [facility] 200 [place] [address] Gastroenterology 06/16/23 Lazaro Peck MD 850 [facility] 200 [place] [address] Gastroenterology 06/16/23 documented as of this encounter
--- OUTSIDE RECORDS SUMMARY | 2024-12-15 10:57 | XMS_ITS | Clinical Summary ---
Author Organization [facility] Address [address] [facility] [place] [address] Care Team Providers Care Engineering Mechanic Name Role Phone Jenny Nica HOLLEY Primary Care Provider [phone] Allergies Active Allergy Reactions Criticality Noted Date Comments Amoxicillin-Pot Clavulanate Unknown High 10/16/2014 Baclofen Unknown Medium 10/09/2022 Betamethasone Hallucinations 10/16/2014 Extreme anxiety Clindamycin Anaphylaxis High 10/16/2014 Latex Rash Medium 10/16/2014 Metronidazole GI intolerance 10/20/2018 Naproxen Unknown Medium 10/16/2014 Altered liver function Sulfamethoxazole-Trimethop rim Hallucinations 10/20/2018 Zonisamide Hallucinations 10/20/2018 zonegran Medications busPIRone (Buspar) 30 MG tablet Take 30 mg by mouth in the morning and 30 mg before bedtime. 3 Active Vraylar 6 MG capsule TAKE 1 CAPSULE BY MOUTH EVERY DAY AT BEDTIME 3 Active clonazePAM (KlonoPIN) 1 MG tablet TAKE 1 TABLET BY ORAL ROUTE 4 TIMES PER DAY DIAGNOSIS CODE: F41.9 3 Active esomeprazole (NexIUM) [address] capsule TAKE 1 CAPSULE BY MOUTH TWICE DAILY BEFORE MEALS 3 Active lamoTRIgine (LaMICtal) 200 MG tablet TAKE 1 TABLET BY ORAL ROUTE PER AT BEDTIME TO TAKE WITH A 100 MG FOR A TOTAL OF 300 MG AT NIGHT 3 Active methocarbamol (Robaxin) 500 MG tablet TAKE 1 TO 2 TABLETS TWICE A DAY NEEDED FOR MUSCLE PAIN 3 Active ondansetron ODT (Zofran-ODT) 4 MG disintegrating tablet TAKE 1 TABLET BY MOUTH EVERY 8 HOURS NEEDED FOR NAUSEA AND VOMITING 2 Active pregabalin (Lyrica) 200 MG capsule Take 200 mg by mouth in the morning and 200 mg in the evening and 200 mg before bedtime. 3 Active traZODone (Desyrel) 100 MG tablet TAKE 3 TABLETS BY MOUTH AT BEDTIME 3 Active desvenlafaxine (Pristiq) 100 MG 24 hr tablet Take 200 mg by mouth Daily Active alpha tocopherol (Vitamin E) 400 units capsule Active lamoTRIgine (LaMICtal) 100 MG tablet Take 1 tablet by mouth at bedtime 4 Active prazosin (Minipress) 2 MG capsule TAKE 2 CAPSULE BY ORAL ROUTE PER AT BEDTIME CHANGE IN DOSAGE 4 Active hydrOXYzine pamoate (Vistaril) 25 MG capsule TAKE 1 CAPSULE BY MOUTH 3 TIMES A DAY NEEDED FOR ANXIETY 5 Active Active Problems Problem Noted Date Diagnosed Date S/P right knee arthroscopy 12/07/2022 Localized osteoarthritis of right knee 3 Acute pain of right knee 10/09/2022 Internal derangement of right knee 10/09/2022 Encounters Date Type Department Care Team Description 12/05/2024 1:10 [place] [address] Riley King DO Pre-operative exam; Pain of ovary; History of ovarian cyst 12/05/2024 [place] [address] Riley King DO 11/08/2024 2:00 PM EDT [place] [address] Pain of ovary; History of ovarian cyst 11/07/2024 Travel 10/23/2024 1:10 PM [place] [address] Riley King, DO Pain of ovary; History of ovarian cyst 10/23/2024 Bamboo flowsheet [facility] [address] [place] [address] Riley King, DO 10/22/2024 Travel 10/03/2024 3:00 PM EDT Office Visit [facility] [address] [place] [address] Dolce, Baldo R, DPM FACFAS Neoplasm of uncertain behavior of skin (Primary Dx); Mass of left foot 10/03/[address] [address] [place] [address] Dolce, Baldo R, DPM FACFAS 10/02/2024 Travel 09/19/2024 2:20 PM EDT Office Visit [facility] [address] [place] [address] Dolce, Baldo R, DPM FACFAS Neoplasm of uncertain behavior of skin (Primary Dx); Plantar verruca 09/19/[address] [address] [place] [address] Dolce, Baldo R, DPM FACFAS from Last 3 Months Family History Medical History Relation Name Comments Diabetes Father Grandpa Heart disease Father Grandpa Hypertension Father Grandpa Hypothyroidism Father Grandpa Mental illness Father Grandpa Cancer Maternal Grandfather Don Chime Diabetes Maternal Grandfather Don Chime Heart disease Maternal Grandfather Don Chime Lung disease Maternal Grandfather Don Chime Stroke Maternal Grandfather Don Chime Cancer Maternal Grandmother Juhi Chimlong Relation Name Status Comments Father Grandpa Alive Maternal Grandfather Don Chime Maternal Grandmother Juhi Chime Alive Mother Alive Paternal Grandmother Alive Social History Tobacco Use Types Packs/Day Years Used Date Smoking Tobacco: Former Cigarettes 1.5 15 Smokeless Tobacco: Never Tobacco Cessation:Counseling Given: Yes Alcohol Use Standard Drinks/Week Comments Never 0 (1 standard drink = 0.6 oz pur e alcohol) Comments No Sex and Gender Information Value Date Recorded Sex Assigned at Not on file Legal Sex Female 7:00 PM EDT Gender Identity Not on file Sexual Orientation Not on file Last Filed Vital Signs Vital Sign Reading Time Taken Comments Blood Pressure 128/78 12/05/2024 1:16 PM EDT Pulse 75 10/03/2024 3:20 PM EDT Temperature 36.3 C (97.4 F) 09/07/2023 10:30 AM EDT Respiratory Rate - - Oxygen Saturation - - Inhaled Oxygen Concentration - - Weight 109 kg (240 lb 6.4 oz) 12/05/2024 1:16 PM EDT Height 167.6 cm (5' 6 ) 10/03/2024 3:20 PM EDT Body Mass Index 38.8 10/03/2024 3:20 PM EDT Plan of Treatment Upcoming Encounters Date Type Department Care Team (Late st Contact Info) Description 12/18/2024 1:00 PM EDT Office Visit [facility] [address] [place] [address] Gretel Burton PA [address] [place] [address] 01/04/2025 10:50 AM EDT Office Visit [facility] [place] [facility] [address] [facility] [place] [address] Riley King DO [address] [facility] [address] [place], [place] [phone] Health Maintenance Due Date Last Done Comments Pap Smear 10/19/2011 10/18/2008 Cervical Cancer Screening 01/01/2014 HPV/Cotest 01/01/2014 Mammogram 2024 Influenza Vaccine (#1) 2025 9, 01/01/2019, 02/23/2018, Additional history exists Procedures Procedure Name Priority Date/Time Associated Diagnosis Comments US PELVIC COMPLETE W/ TV Routine 11/08/2024 2:20 PM EDT Pain of ovary History of ovarian cyst POCT URINALYSIS DIPSTICK Routine 10/23/2024 1:21 PM EDT Pain of ovary History of ovarian cyst from Last 3 Months Results * US Pelvis w/ TV (11/08/2024 2:20 PM EDT) Anatomical Region Laterality Modality Pelvis Ultrasound 11/09/2024 2:23 PM EDT Impressions 11/09/2024 3:06 PM EDT Follicular left ovary, small amount of fluid may represent sequela of recent cyst rupture TRANSCRIBED BY: ELECTRONICALLY SIGNED BY: Campbell Rivers MD Narrative 11/09/2024 3:06 PM EDT FINDINGS: Uterus Surgically absent Right ovary Surgically absent Left ovary 4.0 x 2.5 x 3.8 cm Normal vaginal cuff. No pelvic fluid or adnexal mass. Left ovarian follicles, majority 4-6 mm, largest approaches 1 cm with a small amount of neighboring fluid. Procedure Note Campbell Rivers MD - 11/09/2024 FINDINGS: Uterus Surgically absent Right ovary Surgically absent Left ovary 4.0 x 2.5 x 3.8 cm Normal vaginal cuff. No pelvic fluid or adnexal mass. Left ovarian follicles, majority 4-6 mm, largest approaches 1 cm with asmall amount of neighboring fluid. IMPRESSION: Follicular left ovary, small amount of fluid may represent sequela ofrecent cyst rupture TRANSCRIBED BY: ELECTRONICALLY SIGNED BY: Campbell Rivers MD us Rin Randall NP IMG US PROCEDURES Final Resul t * POCT urinalysis dipstick manually resulted (10/23/2024 1:21 PM EDT) Color, UA Yellow Clarity, UA Clear Glucose, UA Negative Negative - 2000(110) ++++ mg/dL Bilirubin, UA Negative Negative - 4(70) +++ mg/dL Ketones, UA Negative Negative - 160(16) ++++ mg/dL Spec Grav, UA 1.010 1 - 1.03 Blood, UA Negative Negative - 50 [place]/mcL pH, UA 6.5 5 - 9 Protein, UA Negative Negative - 1999(20) ++++ mg/dL Urobilinogen, UA 0.2 0.2 - 12 mg/dL Leukocytes, UA Negative Negative - 500+++ Jerrica/mcL Nitrite, UA Negative Negative - Positive Urine 10/23/2024 1:21 PM EDT Riley King DO POINT OF CARE TEST ENTER/EDIT OR DERABLES Final Result from Last 3 Months Insurance MEDICARE [place]ICAID [place] Care Teams Engineering Mechanic Relationship Specialty Start Date End Date Nica Alvarado DO [address] [place] [address] PCP - General Family Medicine 10/09/22
--- OUTSIDE RECORDS SUMMARY | 2024-12-15 10:57 | XMS_ITS | Encounter Summary ---
Author Organization [facility] Address [address] [place] [address] Care Team Providers Care Building Construction Superintendent Name Role Phone Kwesi Hernandez Unavailable [phone] Lesli Whatley ENTRY DRIVER OPERATOR Unavailable Lesli Whatley ENTRY DRIVER OPERATOR Primary Care Provider Lian Acosta APRN.ENTRY DRIVER OPERATOR Unavailable [phone] Lazaro Peck MD Unavailable Source Comments In the event this information is protected by the Federal Confidentiality of Alcohol and Drug AbusePatient Records regulations: The Federal rules restrict any use of the information to criminally investigate or prosecute any alcohol or drug abuse patient.[facility] Encounter Details Date Type Department Care Team (Latest Contact Info) Description 12/18/2019 [facility] [address] [place], [place] [phone] Bonifacio Serrano MD [address] [place] [address] RE: Non-Urgent Medical Question Social [...] 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 Not [...] on filedocumented in this encounter Care Teams Building Construction Superintendent Relationship Specialty Start Date End Date Lesli Whatley CNP [address] [place] [address] [place] [phone] PCP - General Family Medicine 08/10/18 Kwesi Hernandez [address] [facility] [place] [address] Pain Management 09/17/14 Lesli Whatley, ENTRY DRIVER OPERATOR [address] [place] [address] Referring Family Medicine 08/08/18 Lian Acosta APRN.ENTRY DRIVER OPERATOR [address] [facility] 200 [place] [address] Gastroenterology 06/16/23 Lazaro Peck MD [address] [facility] 200 [place] [address] Gastroenterology 06/16/23 documented as of this encounter
--- OUTSIDE RECORDS SUMMARY | 2024-12-15 10:57 | XMS_ITS | Encounter Summary ---
Author Organization [facility] Address [address] [place] [address] [place] [address] Care Team Providers Care Pressure Sealer And Tester Name Role Phone Nica Alvarado Primary Care Provider [phone] Encounter Details Date Type Department Care Team (Late Contact Info) Description 12/05/2024 Bamboo flowsheet [facility] [place] [address] [facility] [place] [address] Riley King DO [address] [facility] [address] [place], [facility] Social History Tobacco Use Types Packs/Day Years [...] [address] [place] [address] Gretel Burton PA [address] [place] [address] 01/04/2025 10:50 AM EDT Office Visit [facility] [address] [facility] [place] [address] Riley iKng DO [address] [place] [address] documented as of this encounter Visit Diagnoses Not on filedocumented in this encounter Care Teams Pressure Sealer And Tester Relationship Specialty Start Date End Date Nica Alvarado DO [address] [place] [address] PCP - General Family Medicine 10/09/22 documented as of this encounter
--- OUTSIDE RECORDS SUMMARY | 2024-12-15 10:57 | XMS_ITS | Encounter Summary ---
Author Organization [facility] Address [facility] [place] [address] Care Team Providers Care Steam Presser Name Role Phone Kwesi Hernandez Unavailable [phone] Lesli Whatley APPLICATION SOFTWARE DEVELOPER Unavailable [phone] Lesli Whatley APPLICATION SOFTWARE DEVELOPER Primary Care Provider [phone] Lian Acosta APRN.APPLICATION SOFTWARE DEVELOPER Unavailable [phone] Lazaro Peck MD Unavailable Source Comments In the event this information is protected by the Federal Confidentiality of Alcohol and Drug AbusePatient Records regulations: The Federal rules restrict any use of the information to criminally investigate or prosecute any alcohol or drug abuse patient.[facility] Encounter Details Date Type Department Care Team (Late st Contact Info) Description 09/15/2021 Get Medical Advice Gastroenterolgy [address] [place] [address] Elis Bryant APRN.APPLICATION SOFTWARE DEVELOPER [address] [place] [address] Prescription Social History Tobacco Use Types Packs/Day Years [...] N ot on file 04/09/2020 Data from: https://www.neighborhoodatlas.[facility]/. 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 file Not [...] Lorna George LPN documented in this encounter Miscellaneous Notes * Telephone Encounter - Desilets, Miguelina, RN - 09/15/2021 12:07 PM EDT Please see pt message Miguleina Sullivan RN September 15, 2021 12:07 PM documented in this encounter Plan of Treatment Not on file documented as of this encounter Visit Diagnoses Not on filedocumented in this encounter Care Teams Steam Presser Relationship Specialty Start Date End Date Lesli Whatley, APPLICATION SOFTWARE DEVELOPER [address] [place] [address] PCP - General Family Medicine 08/10/18 Kwesi Hernandez [address] [facility] [place] [address] Pain Management 09/17/14 Lesli Whatley, APPLICATION SOFTWARE DEVELOPER [address] [place] [address] Referring Family Medicine 08/08/18 Lian Acosta APRN.APPLICATION SOFTWARE DEVELOPER [address] [place] [address] Gastroenterology 06/16/23 Lazaro Peck MD [address] [place] [address] Gastroenterology 06/16/23 documented as of this encounter
--- OUTSIDE RECORDS SUMMARY | 2024-12-15 10:57 | XMS_ITS | Encounter Summary ---
Author Organization [facility] Address [address] [facility] [place] [address] Care Team Providers Care Bisque Kiln Drawer Name Role Phone Nica Alvarado Primary Care Provider [phone] Encounter Details Date Type Department Care Team (Late Contact Info) Description 11/25/2022 Orders Only [facility] [address] [facility] [facility] [address] [place] [address] Amanuel Jj DO [address] [place] [address] Localized osteoarthritis of right knee (Primary Dx) [...] Office Visit [facility] [address] [facility] [address] [place] [address] Gretel Burton PA [address] [place] [address] 01/04/2025 10:50 AM EDT Office Visit [facility] [address] [facility] [place] [address] Riley King DO [address] [facility] [place] [address] documented as of this encounter Visit Diagnoses Diagnosis Localized osteoarthritis of right knee- Primary documented in this encounter Care Teams Bisque Kiln Drawer Relationship Specialty Start Date End Date Nica [place] [phone] PCP - General Family Medicine 10/09/22 documented as of this encounter
--- OUTSIDE RECORDS SUMMARY | 2024-12-15 10:57 | XMS_ITS | Encounter Summary ---
Author Organization [facility] Address [address] [place] [address] Care Team Providers Care Care Management Associate Name Role Phone Kwesi Hernandez Unavailable [phone] Lesli Whatley RATE MANAGER Unavailable [phone] Lesli Whatley RATE MANAGER Primary Care Provider [phone] Lian Acosta APRN.RATE MANAGER Unavailable [phone] Lazaro Peck MD Unavailable Source Comments In the event this information is protected by the Federal Confidentiality of Alcohol and Drug AbusePatient Records regulations: The Federal rules restrict any use of the information to criminally investigate or prosecute any alcohol or drug abuse patient.[facility] Encounter Details Date Type Department Care Team (Late st Contact Info) Description 08/15/2019 Get Medical Advice Gastroenterology [address] [place] [address] Elis Bryant APRN.RATE MANAGER [address] [place], [place] [id number] RE: Test Result Question Social History Tobacco [...] 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 No / Unsure 07/27/2019 3:00 PM EDT documented as of this encounter [...] encounter Miscellaneous Notes * Telephone Encounter - Yara Sullivan (Harsh) - 08/22/2019 8:18 AM EDT Please see message * Telephone Encounter - Yara Sullivan (Rn) - 08/15/2019 3:30 PM EDT Please see message documented in this encounter Plan of Treatment Not on file documented as of this encounter Visit Diagnoses Not on filedocumented in this encounter Care Teams Care Management Associate Relationship Specialty Start Date End Date Lesli Whatley, RATE MANAGER [address] [place] [address] PCP - General Family Medicine 08/10/18 Kwesi Hernandez [address] [facility] [place] [address] Pain Management 09/17/14 Lesli Whatley, RATE MANAGER [address] [place] [address] Referring Family Medicine 08/08/18 Lian Acosta APRN.RATE MANAGER [address] [place] [address] Gastroenterology 06/16/23 Lazaro Peck MD [address] [place] [address] Gastroenterology 06/16/23 documented as of this encounter
--- OUTSIDE RECORDS SUMMARY | 2024-12-15 10:57 | XMS_ITS | Encounter Summary ---
Author Organization [facility] Address [address] [facility] [place] [address] Care Team Providers Care Blue Line Operator Name Role Phone Nica Alvarado Primary Care Provider [phone] Encounter Details Date Type Department Care Team (Late Contact Info) Description 11/27/2022 Orders Only [facility] [address] [address] [place] [address] Amanuel Jj DO [address] [place] [address] Localized osteoarthritis of right knee [...] Office Visit [facility] [address] [address] [place] [address] Gretel Burton PA [address] [place] [address] 01/04/2025 10:50 AM EDT Office Visit [facility] [address] [address] Riley King DO [address] [place] [address] documented as of this encounter Visit Diagnoses Diagnosis Localized osteoarthritis of right knee- Primary documented in this encounter Care Teams Blue Line Operator Relationship Specialty Start Date End Date Nica Alvarado [place] [phone] PCP - General Family Medicine 10/09/22 documented as of this encounter
--- OUTSIDE RECORDS SUMMARY | 2024-12-15 10:57 | XMS_ITS | Clinical Summary ---
Author Organization [facility] Address [address] [place] [address] Phone Care Team Providers Care Hall Clerk Name Role Phone Unavailable Primary Care Provider Unavailabl e Social History Tobacco Use Types Packs/Day Years Used Date Smoking Tobacco: Never Assessed Comments Unknown Sex and Gender Information Value Date Recorded Sex Assigned at Not on file Legal Sex Female 5:25 PM EST Gender Identity Not on file Sexual Orientation Not on file Plan of Treatment Health Maintenance Due Date Last Done Comments HIV Screening 1985 Lipid Panel 1985 Yearly Adult Physical 1985 MMR Vaccines (1 of 1 - Stand kwame series) 01/01/1985 Hepatitis C Screening 01/01/2002 Hepatitis B Vaccines (1 of 3 - 19+ 3-dose series) 01/01/2003 Cervical Cancer Screening 01/01/2005 HPV/Cotest 01/01/2005 Pap Smear 01/01/2005 DTaP/Tdap/Td Vaccines (1 - Tdap) 01/01/2006 HPV Vaccines (1 - 3-dose sta ndard series) 01/01/2011 COVID-19 Vaccine (2023-2 5 season) 2024 Mammogram 2024 Influenza Vaccine (#1) 2025 Zoster Vaccines (1 of 2) 01/01/2034 HIB Vaccines Aged Out No longer eligi ble based on patient's age to complete this topic Hepatitis A Vaccines Aged Out No long er eligible based on patient's age to complete this topic IPV Vaccines Aged Out No longer eligi ble based on patient's age to complete this topic Meningococcal Vaccine Aged Out No pola ken eligible based on patient's age to complete this topic Pneumococcal Vaccine: Pediat rics and At-Risk Adult Patients Aged Out No longer sana gible based on patient's age to complete this topic Rotavirus Vaccines Aged Out No longer eligible based on patient's age to complete this topic
--- OUTSIDE RECORDS SUMMARY | 2024-12-15 10:57 | XMS_ITS | Clinical Summary ---
Author Organization [facility] Address [address] [place] [address] Care Team Providers Care Fire Support Specialist Name Role Phone Unavailable Primary Care Provider Unavailabl e Social History Tobacco Use Types Packs/Day Years Used Date Smoking Tobacco: Never Assessed Comments Unknown Sex and Gender Information Value Date Recorded Sex Assigned at Not on file Legal Sex Female 12:42 PM EST Gender Identity Not on file Sexual Orientation Not on file Plan of Treatment Not on file
--- OUTSIDE RECORDS SUMMARY | 2024-12-15 10:57 | XMS_ITS | Encounter Summary ---
Author Organization [facility] Address [facility] [place] [address] Care Team Providers Care City Councilman Name Role Phone Kwesi Hernandez Unavailable [phone] Lesli Whatley FIGHTER PILOT Unavailable [phone] Lesli Whatley FIGHTER PILOT Primary Care Provider [phone] Lian Acosta APRN.FIGHTER PILOT Unavailable [phone] Lazaro Peck MD Unavailable Source Comments In the event this information is protected by the Federal Confidentiality of Alcohol and Drug AbusePatient Records regulations: The Federal rules restrict any use of the information to criminally investigate or prosecute any alcohol or drug abuse patient.[facility] Encounter Details Date Type Department Care Team (Latest Contact Info) Description 11/21/2019 Patient [facility] [address] [place] [address] Provider, Ccf Dr. 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 [...] on filedocumented in this encounter Care Teams City Councilman Relationship Specialty Start Date End Date Lesli Whatley, FIGHTER PILOT [address] [place], [place] [address] [address] PCP - General Family Medicine 08/10/18 Kwesi Hernandez [address] [place] [address] Pain Management 09/17/14 Lesli Whatley, FIGHTER PILOT [address] [place] [address] Referring Family Medicine 08/08/18 Lian Acosta APRN.FIGHTER PILOT [address] [facility] [address] [place] [address] Gastroenterology 06/16/23 Lazaro Peck MD [address] [place] [address] [address] [place] [address] Gastroenterology 06/16/23 documented as of this encounter
--- OUTSIDE RECORDS SUMMARY | 2024-12-15 10:57 | XMS_ITS | Encounter Summary ---
Author Organization [facility] Address [facility] [place] [address] Care Team Providers Care Carbon Capture Power Plant Engineer Name Role Phone Kwesi Hernandez Unavailable [phone] Lesli Whatley IT SUPPORT TECHNICIAN Unavailable [phone] Lesli Whatley IT SUPPORT TECHNICIAN Primary Care Provider [phone] Lian Acosta APRN.IT SUPPORT TECHNICIAN Unavailable [phone] Lazaro Peck MD Unavailable Source Comments In the event this information is protected by the Federal Confidentiality of Alcohol and Drug AbusePatient Records regulations: The Federal rules restrict any use of the information to criminally investigate or prosecute any alcohol or drug abuse patient.[facility] Encounter Details Date Type Department Care Team (Late st Contact Info) Description 11/02/2019 Get Medical Advice General Surgery [address] [facility] [place] [address] Gilberto Mendoza III, MD [address] [place], [place] [address] RE: Upcoming Appointment Question Social History Tobacco Use Types Packs/Day [...] 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 Thanks. documented in this encounter Plan of Treatment Not on file documented as of this encounter Visit Diagnoses Not on filedocumented in this encounter Care Teams Carbon Capture Power Plant Engineer Relationship Specialty Start Date End Date Lesli Whatley, IT SUPPORT TECHNICIAN [address] [address] PCP - General Family Medicine 08/10/18 Kwesi Hernandez [address] [facility] [place], [place] [address] Pain Management 09/17/14 Lesli Whatley, IT SUPPORT TECHNICIAN [address] [facility] [place] [address] Referring Family Medicine 08/08/18 Lian Acosta APRN.IT SUPPORT TECHNICIAN [address] [place] [address] Gastroenterology 06/16/23 Lazaro Peck MD [address] [place] [address] Gastroenterology 06/16/23 documented as of this encounter
--- OUTSIDE RECORDS SUMMARY | 2024-12-15 10:57 | XMS_ITS | Encounter Summary ---
Author Organization [facility] Address [address] [place] [address] Care Team Providers Care Office Support Specialist Name Role Phone Kwesi Hernandez Unavailable [phone] Lesli Whatley DIRECTOR VETERINARY Unavailable Lesli Whatley DIRECTOR VETERINARY Primary Care Provider Lian Acosta APRN.DIRECTOR VETERINARY Unavailable Lazaro Peck MD Unavailable Source Comments In the event this information is protected by the Federal Confidentiality of Alcohol and Drug AbusePatient Records regulations: The Federal rules restrict any use of the information to criminally investigate or prosecute any alcohol or drug abuse patient.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 Not [...] on filedocumented in this encounter Care Teams Office Support Specialist Relationship Specialty Start Date End Date Lesli Whatley, DIRECTOR VETERINARY [address] [place] [address] PCP - General Family Medicine 08/10/18 Kwesi Hernandez [address] [facility] [place], [place] [address] Pain Management 09/17/14 Lesli Whatley, DIRECTOR VETERINARY [address] [place] [address] Referring Family Medicine 08/08/18 Lian Acosta APRN.DIRECTOR VETERINARY [address] [place] [address] Gastroenterology 06/16/23 Lazaro Peck MD [address] [facility] [address] [place] [address] Gastroenterology 06/16/23 documented as of this encounter
--- OUTSIDE RECORDS SUMMARY | 2024-12-15 10:57 | XMS_ITS | Encounter Summary ---
Author Organization [facility] Address [address] [place] [address] Care Team Providers Care Diamond Mounter Name Role Phone Kwesi Hernandez Unavailable [phone] Lesli Whatley CLOCKMAKER APPRENTICE Unavailable [phone] Lesli Whatley CLOCKMAKER APPRENTICE Primary Care Provider [phone] Lian Acosta APRN.CLOCKMAKER APPRENTICE Unavailable [phone] Lazaro Peck MD Unavailable Source Comments In the event this information is protected by the Federal Confidentiality of Alcohol and Drug AbusePatient Records regulations: The Federal rules restrict any use of the information to criminally investigate or prosecute any alcohol or drug abuse patient.[facility] Encounter Details Date Type Department Care Team (Late st Contact Info) Description 04/14/2021 Get Medical Advice Gastroenterolgy [address] [place] [address] Elis Bryant APRN.CLOCKMAKER APPRENTICE [address] [place] [address] Medicine refill Social History Tobacco Use Types Packs/Day Years [...] N ot on file 04/09/2020 Data from: https://www.neighborhoodatlas.[facility]/. 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 Refilled colestid, nexium and pepcid ?? 2. Take colestid 15 mins AC ?? 3. Follow up in 6 months Thank you, Ivanna Huerta LPN April 14, 2021 11:43 AM documented in this encounter Plan of Treatment Not on file documented as of this encounter Visit Diagnoses Not on filedocumented in this encounter Care Teams Diamond Mounter Relationship Specialty Start Date End Date Lesli Whatley, CLOCKMAKER APPRENTICE [address] [place] [address] PCP - General Family Medicine 08/10/18 Kwesi Hernandez [address] [place] [address] Pain Management 09/17/14 Lesli Whatley CLOCKMAKER APPRENTICE [address] [place] [address] Referring Family Medicine 08/08/18 Lian Acosta APRN.DONOVAN [address] [place] [address] [address] [place] [address] Gastroenterology 06/16/23 Lazaro Peck MD [address] [place] [address] [address] [place] [address] Gastroenterology 06/16/23 documented as of this encounter
--- NOTE | 2024-12-15 11:03 | ECG_ITS ---
[facility] Test Date: 2024-12-15 Pat Name: ED CHANEY Department: Room: - Gender: Female Medical Billing Instructor: : 1985 Requested By: FCO ALEMAN Order Number: [id number] Reading MD: PEREZ KEANE M.D. Measurements Intervals Harvel Rate: 51 P: 39 ID: 173 QRS: 22 QRSD: 84 T: 26 QT: 396 QTc: 367 Interpretive Statements SINUS BRADYCARDIA WITH SINUS ARRHYTHMIA Otherwise normal ECG No previous ECG available for comparison Electronically Signed On 12-15-2024 20:51:47 EDT by PEREZ KEANE M.D.
[2024-12-15 11:49] LABS: Hematocrit 39.4 % (36.0-48.0); Hemoglobin 13.9 g/dL (12.0-16.0); Immature Granulocytes Abs Auto 0.02 10^3/uL (0.00-0.03); Immature Granulocytes Pct Auto 0.4 % (0.0-0.5); Lymphocytes Absolute Auto 1.6 10^3/uL (1.2-3.8); Mean Corpuscular HGB Conc 35.3 g/dL (29.9-35.2); Mean Corpuscular Hemoglobin 32.4 pg (26.7-34.0); Mean Corpuscular Volume 91.8 fL (81.0-99.0); Platelet Count 221 10^3/uL (150-450); Red Blood Count 4.29 10^6/uL (4.20-5.40); White Blood Count 5.7 10^3/uL (4.0-11.0)
[2024-12-15 12:20] LABS: Alanine Aminotransferase 16 U/L (14-59); Albumin Globulin Ratio 1.4; Albumin Level 4.0 g/dL (3.4-5.0); Alkaline Phosphatase 134 U/L (46-116); Anion Gap 10.7; Aspartate Amino Transferase 9 U/L (15-37); Blood Urea Nitrogen 15.0 mg/dL (7.0-18.0); Calcium 9.4 mg/dL (8.5-10.1); Carbon Dioxide 28.6 mmol/L (21.0-32.0); Chloride 103 mmol/L (98-107); Estimated GFR (African America >60 (>=60 mL/min/1.73m^2); Estimated GFR (Non-African Ame >60 (>=60 mL/min/1.73m^2); Globulin 2.9 g/dL; Glucose 107 mg/dL (74-106); Potassium 4.3 mmol/L (3.5-5.1); Sodium 138 mmol/L (136-145); Total Protein 6.9 g/dL (6.4-8.2)
[2024-12-15 13:03] LABS: INR 1.07; Prothrombin Time 11.3 sec (9.0-11.6)
== END 2024-12-15 10:50 | disposition home or self-care (01) ==
LOC: PST 10:55
PROVIDERS: Visit Provider Obstetrics & Gynecology
DX: Z01.810 Encounter for preprocedural cardiovascular examination (principal); Z01.812 Encounter for preprocedural laboratory examination; R10.2 Pelvic and perineal pain; N94.89 Other specified conditions associated with female genital organs and menstrual cycle; Z87.42 Personal history of other diseases of the female genital tract
CPT/HCPCS: 80048; 80076; 85025; 85610; 86850; 86900; 86901; 93005

== ENCOUNTER 2024-12-29 09:30 | Day surgery (SDC) | payer MEDICARE, MEDICAID, SELFPAY ==
--- OUTSIDE RECORDS SUMMARY | 2019-06-27 06:00 | XMS_ITS | Continuity of Care Document ---
Author Organization [facility] Address [address] [place] [address] Phone Care Team Providers Care Sizing Sponger Name Role Phone Madelyn Yanes DDS Unavailable Unavailabl e Allergies, Adverse Reactions, Alerts Substance Reaction Status Criticality trimethoprim Active No Information sulfamethoxazole Active No Informat ion metronidazole Cramp Active No Information latex Drowsy Active No Information POTASSIUM CLAVULANATE Dizziness Active No Inf ormation AMOXICILLIN TRIHYDRATE Dizziness Active No In formation Medications Medication Instructions Dosage Effective Dates (start - stop) Status Comments Pristiq 100 mg tablet,extended release take 1 tablet by oral route every day 100 MG - Active Klonopin 1 mg tablet take 1 tablet by or al route 3 times every day 1 MG - Active baclofen 20 mg tablet take 1 tablet by o ral route 4 times every day 20 MG - Active Lyrica 200 mg capsule take 1 capsule by oral route 3 times every day 200 MG - Active ibuprofen 800 mg tablet take 1 tablet by oral route 3 times every day with food 800 MG - Active Lamictal 200 mg tablet take 1 tablet by oral route 2 times every day 200 MG - Active trazodone 300 mg tablet take 1 tablet by oral route 2 times every day with food 300 MG - Active Minipress 2 mg capsule take 1 capsule by oral route 3 times every day - Active Zyrtec 10 mg tablet take 1 tablet by ora l route every day 10 MG - Active biotin 10,000 mcg disintegrating tablet - Active Procedures Procedure Date Oral Hygiene Instruction Resin Composite 2s; Posterior 0 Treatment Completed Intraoral-complete Series (bw) 19 Comp Oral Eval New/estab Patient 2018 Nutrit Couns For Control Of Manning Dis Apr Oral Hygiene Instruction Prophylaxis Adult Advance Directives Directive Yes / No Effective Date File Name No Information Encounters Encounter Description Practice Location Reason(s) For Visit Diagnoses Date Provider Providers Copied on Encounter [facility], [address] [place] [address], [id number], tel:[phone] Dental Clinic filling (chief complaint) Encounter for screening for dental disorders Farzana NORANasra Joshi. [address] [place] [address], [id number], [place]. tel:[phone] [facility], [address] [place] [address], [id number], tel:[phone] Dental Clinic DN (chief complaint) Encounter for screening for dental disorders Shay Moffettald. [address] [place] [address], [id number], . tel:[phone] Family History Family Member Type Diagnosis Age At Onset Mother Problem (finding) Alive and well Father Problem (finding) Alive and well Payers Payer name Insurance type Covered libertarian ID ulices rousseau(s) D Medicaid Primary [facility] [id number] Social History Type Description Quantity Date Captured Comments Alcohol Use Details Unknown Caffeine Use Details Unknown Tobacco Use Status Smoking Status Unknown if ever smoked 20 Smoking Tobacco Use Details Cigarette: Years Used 20 Cigarette: No Details Available Sex Female Sexual Orientation Straight or heterosexual Gender Identity Female Vital Signs Date / Time: Height Weight BMI Pulse Rate Blood Pressure Temperature Respiratory Rate Body Surface Area Head Circumference Head Circ. Percentile Wt./Dave. Percentile BMI percentile Pulse Ox Inhaled Ox 10:15 AM 76 /min 116/78 mm[Hg] Chief Complaint And Reason For Visit From encounter dated '06/27/2019 10:00'. filling (chief complaint). Description: continue with treatment Reason For Referral Reason For Referral No Information Plan Of Treatment Date Type Action Status Goal Tobacco cessation counseling completed History Of Present Illness Encounter Date Complaint History Of Prese nt Illness filling continue with tr clementina DN DN Functional Status Date Functional Assessmen t No Information Instructions Date Instruction Additional Infor mation No Information Assessments Type Assessment Date assessment Encounter for screening for dent al disorders Patient Care Teams Name Effective Dates (start - stop) Status Members No Information
[2024-12-15 11:41] VITALS: BP 116/78; PULSE 69; TEMP 36.3; O2SAT 99; BMI 38.4
--- OUTSIDE RECORDS SUMMARY | 2024-12-18 13:00 | XMS_ITS | Encounter Summary ---
Author Organization [facility] Address [address] [place] [address] Care Team Providers Care Consumer Services Consultant Name Role Phone Nica lAvarado Primary Care Provider [phone] Reason for Visit * Reason Comments Suspicious Skin Lesion Encounter Details Date Type Department Care Team ([facility] Contact Info) Description 12/18/2024 1:00 PM EDT Office Visit [facility] [address] [place] [address] Gretel Burton PA [address] [place] [address] Neoplasm of unspecified behavior of bone, soft tissue, and skin (Primary Dx) Social History Tobacco Use Types [...] on file documented as of this encounter Progress Notes * DUANE Enamorado - 12/18/2024 1:00 PM EDT Images from the original note were not included. Lesions: Location: mid back Duration: years Quality: painful Modifying factors: rubs on clothing Treatments: none New patient All pertinent medical history, medications, and allergies were reviewed. General Exam: alert, oriented to person, place, and time, normal affect, well appearing Unaccompanied A focused exam completed based on patient reported problems, see below: Skin Exam 1. NEOPLASM OF UNSPECIFIED BEHAVIOR OF BONE, SOFT TISSUE, AND SKIN Mid Back Flesh-colored papule Lesion biopsy Type of biopsy: tangential Informed consent: discussed and consent obtained Informed consent comment: The risks and benefits of the biopsy were discussed. Risks include but are not limited to bleeding, infection, scarring, pain, and nerve damage. An opportunity to ask questions prior to the procedure was permitted and all questions were answered. Patient was prepped and draped in usual sterile fashion: area cleansed with alcohol. Anesthesia: the lesion was anesthetized in a standard fashion Anesthetic: 1% lidocaine w/ epinephrine 1-100,000 buffered w/ 8.4% NaHCO3 Instrument used: DermaBlade Hemostasis achieved with: electrodesiccation Outcome: patient tolerated procedure well Outcome comment: The specimen was placed in a prelabeled formalin container to be sent for pathology Post-procedure details: sterile dressing applied and wound care instructions given Post-procedure details comment: Emphasized need to contact clinic for any signs of infection, uncontrollable bleeding, or complications. Dressing type: bandage Additional details: Photo taken yes Amount of lidocaine used: 1.0 cc Specimen A - Dermatopathology exam Differential Diagnosis: Inflamed IDN Check Margins: No Size of lesion: 0.7 x 0.6 cm Diagnosis: (D49.2) Neoplasm of unspecified behavior of bone, soft tissue, and skin Plan: Lesion biopsy Next Visit: as scheduled documented in this encounter Plan of Treatment Upcoming Encounters Date Type Department Care Team (Late st Contact Info) Description 01/04/2025 10:50 AM EDT Office Visit [facility] [address] [place] [address] Riley King DO [address] [place] [address] documented as of this encounter Procedures Procedure Name Priority Date/Time Associated Diagnosis Comments SKIN / NAIL BIOPSY Routine 12/18/2024 1: 21 PM EDT Neoplasm of unspecified behavior of bone, soft tissue, and skin DERMATOPATHOLOGY EXAM Routine 12/18/2024 12:00 AM EDT Neoplasm of unspecified behavior of bone, soft tissue, and skin documented in this encounter Results * Lesion biopsy (12/18/2024 1:21 PM EDT) Narrative Saskia Quinones MA - 12/18/2024 1:21 PM EDT Type of biopsy: tangential Informed consent: discussed and consent obtained Informed consent comment: The risks and benefits of the biopsy were discussed. Risks include but are not limited to bleeding, infection, scarring, pain, and nerve damage. An opportunity to ask questions prior to the procedure was permitted and all questions were answered. Patient was prepped and draped in usual sterile fashion: area cleansed with alcohol. Anesthesia: the lesion was anesthetized in a standard fashion Anesthetic: 1% lidocaine w/ epinephrine 1-100,000 buffered w/ 8.4% NaHCO3 Instrument used: DermaBlade Hemostasis achieved with: electrodesiccation Outcome: patient tolerated procedure well Outcome comment: The specimen was placed in a prelabeled formalin container to be sent for pathology Post-procedure details: sterile dressing applied and wound care instructions given Post-procedure details comment: Emphasized need to contact clinic for any signs of infection, uncontrollable bleeding, or complications. 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 [facility] Gross Text flat measuring 0.9x0.9x0.5cm bisected [facility] Microscopic Description Microscopic examination performed. [facility] CPT 30582*1 [facility] Skin Topography unknown / Unknown 12/18/2024 1:21 PM EDT Comment:Differential Diagnos is: Inflamed IDN Check Margins: No Size of lesion: 0.7 x 0.6 cm Diagnosis: (D49.2) Neoplasm of unspecified behavior of bone, soft tissue, and skin Plan: Lesion biopsy Gretel [facility] PATHOLOGY ORDERABLES Final Result [facility] documented in this encounter Visit Diagnoses Diagnosis Neoplasm of unspecified behavior of bone, soft tissue, and skin- Primary documented in this encounter Care Teams Consumer Services Consultant Relationship Specialty Start Date End Date Nica Alvarado DO [address] [facility] [place] [address] PCP - General Family Medicine 10/09/22 documented as of this encounter
[2024-12-29] VITALS (10 sets, daily range): BP systolic 109–142; BP diastolic 54–91; PULSE 63–77; TEMP 36.2–36.6; O2SAT 94–98; BMI 46.1
--- OUTSIDE RECORDS SUMMARY | 2024-12-29 09:33 | XMS_ITS | Encounter Summary ---
Author Organization [facility] Address [address] [place] [address] Care Team Providers Care Pen Tester Name Role Phone Kwesi Hernandez Unavailable [phone] Lesli Whatley OFFENDER EMPLOYMENT SPECIALIST Unavailable [phone] Lesli Whatley OFFENDER EMPLOYMENT SPECIALIST Primary Care Provider [phone] Lian Acosta APRN.OFFENDER EMPLOYMENT SPECIALIST Unavailable [phone] Lazaro Peck MD Unavailable Source Comments In the event this information is protected by the Federal Confidentiality of Alcohol and Drug AbusePatient Records regulations: The Federal rules restrict any use of the information to criminally investigate or prosecute any alcohol or drug abuse patient.[facility] Encounter Details Date Type Department Care Team (Late st Contact Info) Description 08/15/2019 Get Medical Advice Gastroenterology [address] [place] [address] Elis Bryant APRN.OFFENDER EMPLOYMENT SPECIALIST [address] [place], [place] [phone] RE: Test Result Question Social History Tobacco [...] 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 [...] on filedocumented in this encounter Care Teams Pen Tester Relationship Specialty Start Date End Date Lesli Whatley, OFFENDER EMPLOYMENT SPECIALIST [address] [place] [address] PCP - General Family Medicine 08/10/18 Kwesi Hernandez [address] [facility] [place] [address] Pain Management 09/17/14 Lesli Whatley, OFFENDER EMPLOYMENT SPECIALIST [address] [place] [address] Referring Family Medicine 08/08/18 Lian Acosta APRN.OFFENDER EMPLOYMENT SPECIALIST [address] [place] [address] Gastroenterology 06/16/23 Lazaro Peck MD [address] [place] [address] Gastroenterology 06/16/23 documented as of this encounter
--- OUTSIDE RECORDS SUMMARY | 2024-12-29 09:33 | XMS_ITS | Encounter Summary ---
Author Organization [facility] Address [facility] [place] [address] Care Team Providers Care Kid Club Attendant Name Role Phone Kwesi Hernandez Unavailable [phone] Lesli Whatley SKIN PASS OPERATOR Unavailable [phone] Lesli Whatley SKIN PASS OPERATOR Primary Care Provider [phone] Lian Acosta APRN.SKIN PASS OPERATOR Unavailable [phone] Lazaro Peck MD Unavailable Source Comments In the event this information is protected by the Federal Confidentiality of Alcohol and Drug AbusePatient Records regulations: The Federal rules restrict any use of the information to criminally investigate or prosecute any alcohol or drug abuse patient.[facility] Encounter Details Date Type Department Care Team (Late st Contact Info) Description 09/15/2021 Get Medical Advice Gastroenterolgy [address] [place] [address] Elis Bryant APRN.SKIN PASS OPERATOR [address] [place] [address] Prescription Social History Tobacco Use [...] ot on file 04/09/2020 Data from: https://www.neighborhoodatlas.[facility]/. 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 Not [...] 12:07 PM EDT Please see pt message Miguelina Sullivan RN September 15, 2021 12:07 PM documented in this encounter Plan of Treatment Not on file documented as of this encounter Visit Diagnoses Not on filedocumented in this encounter Care Teams Kid Club Attendant Relationship Specialty Start Date End Date Lesli Whatley, SKIN PASS OPERATOR [address] [place] [address] PCP - General Family Medicine 08/10/18 Kwesi Hernandez [address] [facility] [place] [address] Pain Management 09/17/14 Lesli Whatley, SKIN PASS OPERATOR [address] [place] [address] Referring Family Medicine 08/08/18 Lian Acosta APRN.SKIN PASS OPERATOR [address] [place] [address] Gastroenterology 06/16/23 Lazaro Peck MD [address] [place] [address] Gastroenterology 06/16/23 documented as of this encounter
--- OUTSIDE RECORDS SUMMARY | 2024-12-29 09:33 | XMS_ITS | Encounter Summary ---
Author Organization [facility] Address [address] [id number] Care Team Providers Care Marble Polisher Name Role Phone Unavailable Primary Care Provider Unavailabl e Encounter Details Date Type Department Care Team (Late st Contact Info) Description 11/19/2016 Abstract [facility] Otolaryngology (ENT) [address] [id number] [place] [id number] [place] [address] Social History Tobacco Use Types Packs/Day Years Used Date Smoking Tobacco: Former Smokeless Tobacco: Never Comments:quit 18 weeks ago Comments Unknown Sex and Gender Information Value Date Recorded Sex Assigned at Not on file Legal Sex Female 4:49 PM EDT Gender Identity Not on file Sexual Orientation Not on file documented as of this encounter Plan of Treatment Not on file documented as of this encounter Visit Diagnoses Not on filedocumented in this encounter
--- OUTSIDE RECORDS SUMMARY | 2024-12-29 09:33 | XMS_ITS | Encounter Summary ---
Author Organization [facility] Address [address] [place] [address] Care Team Providers Care Examining Chair Assembler Name Role Phone Kwesi Hernandez Unavailable [phone] Lesli Whatley OIL RECOVERY OPERATOR Unavailable Lesli Whatley OIL RECOVERY OPERATOR Primary Care Provider Lian Acosta APRN.OIL RECOVERY OPERATOR Unavailable Lazaro Peck MD Unavailable Source Comments In the event this information is protected by the Federal Confidentiality of Alcohol and Drug AbusePatient Records regulations: The Federal rules restrict any use of the information to criminally investigate or prosecute any alcohol or drug abuse patient.[facility] Encounter Details Date Type Department Care Team (Latest Contact Info) Description 11/21/2019 [facility] [address] [place], [place] [id number] Bonifacio Serrano MD [address] [place] [address] RE: Non-Urgent Medical Question Social [...] 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 Not [...] on filedocumented in this encounter Care Teams Examining Chair Assembler Relationship Specialty Start Date End Date Lesli Whatley, OIL RECOVERY OPERATOR [address] [place] [address] PCP - General Family Medicine 08/10/18 Kwesi Hernandez [address] [place] [address] Pain Management 09/17/14 Lesli Whatley, OIL RECOVERY OPERATOR [address] [place] [address] Referring Family Medicine 08/08/18 Lian Acosta APRN.OIL RECOVERY OPERATOR [address] [place] [address] Gastroenterology 06/16/23 Lazaro Peck MD [address] [place] [address] Gastroenterology 06/16/23 documented as of this encounter
--- OUTSIDE RECORDS SUMMARY | 2024-12-29 09:33 | XMS_ITS | Encounter Summary ---
Author Organization [facility] Address [address] [facility] [place] [address] Care Team Providers Care Maintenance Mechanic Millwright Name Role Phone Nica Alvarado Primary Care Provider [phone] Encounter Details Date Type Department Care Team (Latest Contact Info) Description 12/21/2024 Results Follow-Up [facility] [place] [facility] [address] [facility] [address] [place] [address] Gretel Burton PA [address] [facility] [address] [place] [address] Dermatopathology exam Social History Tobacco Use Types Packs/Day Years [...] Description 01/04/2025 10:50 AM EDT Office Visit [facility] [address] [facility] [place] [address] Riley King DO [address] [facility] [place] [address] documented as of this encounter Visit Diagnoses Not on filedocumented in this encounter Care Teams Maintenance Mechanic Millwright Relationship Specialty Start Date End Date Nica Alvarado DO [address] [place] [address] PCP - General Family Medicine 10/09/22 documented as of this encounter
--- OUTSIDE RECORDS SUMMARY | 2024-12-29 09:33 | XMS_ITS | Encounter Summary ---
Author Organization [facility] Address [address] [place] [address] Care Team Providers Care Firestop/Containment Worker Name Role Phone Kwesi Hernandez Unavailable [phone] Lesli Whatley INDUSTRIAL TECH INSTRUCTOR Unavailable [phone] Lesli Whatley CNP Primary Care Provider [phone] Lian Acosta APRN.INDUSTRIAL TECH INSTRUCTOR Unavailable Lazaro Peck MD Unavailable Source Comments In the event this information is protected by the Federal Confidentiality of Alcohol and Drug AbusePatient Records regulations: The Federal rules restrict any use of the information to criminally investigate or prosecute any alcohol or drug abuse patient.[facility] Encounter Details Date Type Department Care Team (Late st Contact Info) Description 02/23/2019 Patient Msg Medical Records [address] [place] [address] Provider, Ccf Prescribed Patient Education Video(s) Social [...] 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 [...] on filedocumented in this encounter Care Teams Firestop/Containment Worker Relationship Specialty Start Date End Date Lesli Whatley CNP [address] [place] [address] PCP - General Family Medicine 08/10/18 Kwesi Hernandez [address] [place] [address] Pain Management 09/17/14 Lesli Whatley, INDUSTRIAL TECH INSTRUCTOR [facility] [place] [address] Referring Family Medicine 08/08/18 Lian Acosta, JAYME.INDUSTRIAL TECH INSTRUCTOR [address] [place] [address] [address] [place] [address] Gastroenterology 06/16/23 Lazaro Peck MD [address] [place] [address] [address] [place] [address] Gastroenterology 06/16/23 documented as of this encounter"
--- OUTSIDE RECORDS SUMMARY | 2024-12-29 09:33 | XMS_ITS | Encounter Summary ---
Author Organization [facility] Address [facility] [place] [address] Care Team Providers Care Compressor Service Technician Name Role Phone Kwesi Hernandez Unavailable [phone] Lesli Whatley SEXUAL HEALTH PHYSICIAN Unavailable [phone] Lesli Whatley SEXUAL HEALTH PHYSICIAN Primary Care Provider [phone] Lian Acosta APRN.SEXUAL HEALTH PHYSICIAN Unavailable Lazaro Peck MD Unavailable Source Comments In the event this information is protected by the Federal Confidentiality of Alcohol and Drug AbusePatient Records regulations: The Federal rules restrict any use of the information to criminally investigate or prosecute any alcohol or drug abuse patient.[facility] Encounter Details Date Type Department Care Team (Late st Contact Info) Description 11/02/2019 Patient Msg Pre Anesthesia [address] [place], [place] [id number] Nguyen Croft PA-C [address] [facility] [address] [place] [address] surgery instructions Social History Tobacco [...] 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 Not [...] Author Yes 10/16/2014 2:16 PM EDT Lorna Brionse LPN documented as of this encounter Mental [...] on filedocumented in this encounter Care Teams Compressor Service Technician Relationship Specialty Start Date End Date Lesli Whatley, SEXUAL HEALTH PHYSICIAN [address] [place] [address] PCP - General Family Medicine 08/10/18 Kwesi Hernandez [address] [facility] [place] [address] Pain Management 09/17/14 Lesli Whatley, SEXUAL HEALTH PHYSICIAN [address] [place] [address] Referring Family Medicine 08/08/18 Lian Acosta APRN.SEXUAL HEALTH PHYSICIAN [address] [place] [address] Gastroenterology 06/16/23 Lazaro Peck MD [address] [place] [address] Gastroenterology 06/16/23 documented as of this encounter
--- OUTSIDE RECORDS SUMMARY | 2024-12-29 09:33 | XMS_ITS | Encounter Summary ---
Author Organization [facility] Address [address] [place] [address] Care Team Providers Care Skate Maker Name Role Phone Kwesi Hernandez Unavailable [phone] Lesli Whatley RADAR ENGINEERING TEACHER Unavailable [phone] Lesli Whatley RADAR ENGINEERING TEACHER Primary Care Provider Lian Acosta APRN.RADAR ENGINEERING TEACHER Unavailable Lazaro Peck MD Unavailable Source Comments In the event this information is protected by the Federal Confidentiality of Alcohol and Drug AbusePatient Records regulations: The Federal rules restrict any use of the information to criminally investigate or prosecute any alcohol or drug abuse patient.[facility] Encounter Details Date Type Department Care Team (Latest Contact Info) Description 03/12/2021 Patient [facility] [address] [place], [place] [phone] Bonifacio Serrano MD [address] [place] [address] Request an Appointment Social History [...] N ot on file 04/09/2020 Data from: https://www.neighborhoodatlas.[facility]/. 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 Not [...] on filedocumented in this encounter Care Teams Skate Maker Relationship Specialty Start Date End Date Lesli Whatley, RADAR ENGINEERING TEACHER [address] [place] [address] PCP - General Family Medicine 08/10/18 Kwesi Hernandez [address] [facility] [place] [address] Pain Management 09/17/14 Lesli Whatley, DONOVAN [address] [place] [address] Referring Family Medicine 08/08/18 Lian Acosta APRN.DONOVAN [address] [place] [address] Gastroenterology 06/16/23 Lazaro Peck MD [address] [facility] [address] [place] [address] Gastroenterology 06/16/23 documented as of this encounter
--- OUTSIDE RECORDS SUMMARY | 2024-12-29 09:33 | XMS_ITS | Encounter Summary ---
Author Organization [facility] Address [facility] [place] [address] Care Team Providers Care Pie Maker Machine Name Role Phone Kwesi Hernandez Unavailable [phone] Lesli Whatley EARTH SCIENCE FACULTY MEMBER Unavailable [phone] Lesli Whatley EARTH SCIENCE FACULTY MEMBER Primary Care Provider [phone] Lian Acosta APRN.EARTH SCIENCE FACULTY MEMBER Unavailable [phone] Lazaro Peck MD Unavailable Source Comments In the event this information is protected by the Federal Confidentiality of Alcohol and Drug AbusePatient Records regulations: The Federal rules restrict any use of the information to criminally investigate or prosecute any alcohol or drug abuse patient.[facility] Encounter Details Date Type Department Care Team (Late st Contact Info) Description 04/14/2021 Get Medical Advice Gastroenterolgy [address] [place] [address] Elis Bryant APRN.EARTH SCIENCE FACULTY MEMBER [address] [place] [address] Medicine refill Social History Tobacco [...] ot on file 04/09/2020 Data from: https://www.neighborhoodatlas.[facility]/. 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 [...] 11:28 AM EST Please see the following Yik Yakhart message regarding renewal of the following medication: [...] on filedocumented in this encounter Care Teams Pie Maker Machine Relationship Specialty Start Date End Date Lesli Whatley, EARTH SCIENCE FACULTY MEMBER [address] [place] [address] PCP - General Family Medicine 08/10/18 Kwesi Hernandez [address] [place] [address] Pain Management 09/17/14 Lesli Whatley EARTH SCIENCE FACULTY MEMBER [address] [place] [address] Referring Family Medicine 08/08/18 Lian Acosta APRN.DONOVAN [address] [place] [address] [address] [place] [address] Gastroenterology 06/16/23 Lazaro Peck MD [address] [place] [address] [address] [place] [address] Gastroenterology 06/16/23 documented as of this encounter
--- OUTSIDE RECORDS SUMMARY | 2024-12-29 09:33 | XMS_ITS | Encounter Summary ---
Author Organization [facility] Address [address] [facility] [place] [address] Care Team Providers Care Preparation Supervisor Name Role Phone Alvarado, Amy Primary Care Provider [phone] Encounter Details Date Type Department Care Team ([facility] Contact Info) Description 11/25/2022 Orders Only [facility] [address] [facility] JU[address] [place] [address] Amanuel Jj DO [address] [place] [address] Localized osteoarthritis of right knee (Primary Dx) [...] Department Care Team (Late Contact Info) Description 01/04/2025 10:50 AM EDT Office Visit [facility] [address] [place] [address] [place] [address] Riley King DO [address] [place] [address] [place] [address] documented as of this encounter Visit Diagnoses Diagnosis Localized osteoarthritis of right knee- Primary documented in this encounter Care Teams Preparation Supervisor Relationship Specialty Start Date End Date Nica Alvarado DO [address] [place] [address] PCP - General Family Medicine 10/09/22 documented as of this encounter
--- OUTSIDE RECORDS SUMMARY | 2024-12-29 09:33 | XMS_ITS | Encounter Summary ---
Author Organization [facility] Address [address] [facility] [place] [address] Care Team Providers Care Historiographer Name Role Phone Alvarado, Amy Primary Care Provider [phone] Encounter Details Date Type Department Care Team (Late Contact Info) Description 12/15/2024 Clinisync Result Encounter [facility] External Department Unsolicited Fco King DO [facility] [address] [place], [facility] Social History Tobacco Use Types Packs/Day Years [...] Description 01/04/2025 10:50 AM EDT Office Visit [facility] [place] [facility] [address] [place] [address] Fco King DO [address] [place] [address] documented as of this encounter Procedures Procedure Name Priority Date/Time Associated Diagnosis Comments ECG 12-LEAD 12/15/2024 9:39 AM EDT documented in this encounter Results * ECG 12-LEAD (12/15/2024 9:39 AM EDT) Anatomical Region Laterality Modality Other 12/15/2024 9:39 AM EDT Narrative 12/15/2024 8:52 [place] [address] Electrocardiograph Report Signed Patient: ED GE MR#: [id number] : 1985 Acct:[id number] Age/Sex: 39 / F ADM Date: 12/15/24 Loc: PST Attending Dr: Fco King D.O. Ordering Physician: Fco King D.O. Date of Service: 12/15/24 Procedure(s): ECG 12 lead Accession Number(s): [id number] cc: [facility] Test Date: 2024-12-15 Pat Name: ED GE Department: Room: - Gender: Female Clinical Biostatistician: : 1985 Requested By: FCO KING Order Number: [id number] Reading MD: PEREZ KEANE M.D. Measurements Intervals [place] Rate: 51 P: 39 MN: 173 QRS: 22 QRSD: 84 T: 26 QT: 396 QTc: 367 Interpretive Statements SINUS BRADYCARDIA WITH SINUS ARRHYTHMIA Otherwise normal ECG No previous ECG available for comparison Electronically Signed On 12-15-2024 20:51:47 EDT by PEREZ KEANE M.D. Dictated By: PEREZ KEANE Signed By: 12/15/242051 DD/ 8 TD/TT: Ordering Machine Operator: Procedure Note Radiology, Radiologist, MD - 12/15/2024 [address] [id number] Electrocardiograph Report Signed Patient: ED GEMR#: [id number] : 1985Acct:[id number] Age/Sex: 39 / FADM Date: 12/15/24 Loc: PST Attending Dr: Fco King D.O. Ordering Physician: Fco King D.O. Date of Service: 12/15/24 Procedure(s): ECG 12 lead Accession Number(s): [id number] cc: [facility] Test Date: 2024-12-15 Pat Name: ED GE Department: Room: - Gender: Female Clinical Biostatistician: : 1985 Requested By: FCO KING Order Number: [id number] Reading MD: PEREZ KEANE M.D. Measurements Intervals [place] Rate: 51 P: 39 MN: 173 QRS: 22 QRSD: 84 T: 26 QT: 396 QTc: 367 Interpretive Statements SINUS BRADYCARDIA WITH SINUS ARRHYTHMIA Otherwise normal ECG No previous ECG available for comparison Electronically Signed On 12-15-2024 20:51:47 EDT by PEREZ KEANE M.D. Dictated By: PEREZ KEANE Signed By:12/15/242051 DD/ 8 TD/TT: Ordering Machine Operator: us Fco King DO [facility] Final Result documented in this encounter Visit Diagnoses Not on filedocumented in this encounter Care Teams Historiographer Relationship Specialty Start Date End Date N[place] [address] PCP - General Family Medicine 10/09/22 documented as of this encounter
--- OUTSIDE RECORDS SUMMARY | 2024-12-29 09:33 | XMS_ITS | Encounter Summary ---
Author Organization [facility] Address [address] [facility] [place] [address] Care Team Providers Care Panel Cutter Name Role Phone Alvarado, Amy Primary Care Provider [phone] Encounter Details Date Type Department Care Team (Late Contact Info) Description 09/05/2024 Abstract [facility] [address] [place] [address] Baldo Edmond, DPM FACFAS [address] [place] [address] Social History Tobacco Use Types Packs/Day Years [...] Upcoming Encounters Date Type Department Care Team ([facility] Contact Info) Description 01/04/2025 10:50 AM EDT Office Visit [facility] [address] [facility] [place] [address] Riley King DO [address] [facility] [place] [address] documented as of this encounter Visit Diagnoses Not on filedocumented in this encounter Care Teams Panel Cutter Relationship Specialty Start Date End Date Nica Alvarado DO [address] [facility] [place] [address] PCP - General Family Medicine 10/09/22 documented as of this encounter
--- OUTSIDE RECORDS SUMMARY | 2024-12-29 09:33 | XMS_ITS | Encounter Summary ---
Author Organization [facility] Address [address] [facility] [place] [address] Care Team Providers Care Dairy Inspector Name Role Phone Nica Alvarado Primary Care Provider [phone] Encounter Details Date Type Department Care Team ([facility] Contact Info) Description 12/03/2022 Clinisync Result Encounter N[facility] External Department Unsolicited Amanuel Jj, DO [address] [place] [address] Social History Tobacco Use Types Packs/Day Years [...] Upcoming Encounters Date Type Department Care Team ([facility] Contact Info) Description 01/04/2025 10:50 AM EDT Office Visit [facility] [address] [facility] [place] [address] Riley King DO [address] [place] [address] [phone] (work) documented as of this encounter Procedures Procedure [...] White MD Transcribed by: ALFREDITO Technologist: [place] us Amanuel Jj DO [facility] Final Resu lt documented in this encounter Visit Diagnoses Not on filedocumented in this encounter Care Teams Dairy Inspector Relationship Specialty Start Date End Date Nica Alvarado DO [address] [facility] [place] [address] PCP - General Family Medicine 10/09/22 documented as of this encounter
--- OUTSIDE RECORDS SUMMARY | 2024-12-29 09:33 | XMS_ITS | Continuity of Care Document ---
Author Organization [facility] Address [address] [place] [address] Phone [phone] Care Team Providers Care Viner Operator Name Role Phone Jenny Nica Care Team Information Relationship Executive U navailable Allergies and adverse reactions Active [...] SIG Qnty Indications Order ing Provider Date Voaomrwawn2gv Tablets 1 by mouth four times a day 360tabs K21.9 Ann Jordan, MSN, EIGHT ARM OPERATOR 12/26/2019 Vitamin H081Vdzm Capsules every day Unknown Estradiol 1MG QHS Unknown Lamictal 300MG QHS Unknown 0 Buspar 30 MG bid Unknown Yqoyzd1661wpy Tablets every day Unknown Gbdrgldew253cd Tablets 1 tab by mouth three times a day as needed Unknown Vitamin B ComplexTablets 1 by mouth every day Unknown Flaxseed Xbr2018uz Capsules twice a day Unknown Calcium 600+Z982-518wf-Kqkq Tablets Unknown Multi-Vitamin DailyTablets Unknown Ffgtpmk986fc Tablets 1 by mouth twice a day Unknown Zyrtec Aomgoxp12fd Capsules every day Unknown Svfmih452gg Capsules tid Unknown Pwiewjlhk4dc Capsules 3 mg q hs Unknown Trazodone EBL014yb Tablets q hs Unknown Kkjruwbx1pt Tablets qid Unknown Dlstcep282tb Tablets ER 24HR 200 mg q am Unknown History Medications Xnlqbdvk71na Tablets DR 1 by mouth twice a day 30 min before meals Unknown - 10/05/2019 Vitamin B-1100mg Tablets Unkno wn - 10/05/2019 Vitamin B-6100mg Tablets Unkno wn - 10/05/2019 Dymlzw63dz Capsules 1 tab by mouth three times a day before meals Unknown 000 - 10/05/2019 Kwlkedi34hn Tablets Unknown - 01/12/2020 Vital Signs Date [...] Result H/L Range Note Enhanced PDF Report [id number] 07/09/2023 [facility] Enhanced PDF Report [id number] SEE IMAGE GI Pathology 07/09/2023 [facility] Clinical History Personal history <SEE NOTE> 1 Diagnosis (SEE NOTE) 2 Read By SEGUNDO FRANK Gross Description (SEE NOTE) 3 CPT Codes CPT Codes: 91798 <SEE NOTE> 4 CPT Disclaimer (SEE NOTE) 5 Reading Location [facility] <SEE NOTE> 6 Business Performance Manager SOFTWARE RELEASE MANAGER <SEE NOTE> 7 Lab Info (SEE NOTE) 8 GI Pathology 01/12/2020 [facility] Clinical History Heartburn. Diarr <SEE NOTE> 9 Diagnosis (SEE NOTE) 10 Read By DOUGLAS SCHOFIELD Gross Description (SEE NOTE) 11 CPT Codes (SEE NOTE) 12 CPT Disclaimer (SEE NOTE) 13 Reading Location [facility] <SEE NOTE> 14 Business Performance Manager SOFTWARE RELEASE MANAGER <SEE NOTE> 15 Lab Info (SEE NOTE) 16 GI Pathology 01/12/2020 [facility] Clinical History Heartburn. Diarr <SEE NOTE> 17 Diagnosis (SEE NOTE) 18 Read By DOUGLAS SCHOFIELD Gross Description (SEE NOTE) 19 CPT Codes (SEE NOTE) 20 CPT Disclaimer (SEE NOTE) 21 Reading Location [facility] <SEE NOTE> 22 Business Performance Manager SOFTWARE RELEASE MANAGER <SEE NOTE> 23 Lab Info (SEE NOTE) 24 Enhanced PDF Report [id number] 01/12/2020 [facility] Enhanced PDF Report [id number] SEE IMAGE GI Pathology 10/05/2019 [facility] Clinical Information (SEE NOTE) 25 Gross Descripti on Part (SEE NOTE) 26 Diagnosis (SEE NOTE) 27 Read By DONITA SO <SEE NOTE> 28 Reading Location [facility] <SEE NOTE> 29 Enhanced PDF Report [id number] 10/05/2019 [facility] Enhanced PDF Report [id number] SEE IMAGE Enteric Bacterial Panel By PCR 07/27/[address] [address] [phone] Shigella/Eiec Dna Not Detected Campy jejun/col i Dna Not Detected Shiga toxin gene(s) Not Detected Salmonella spp. Dna Not Detected Sed Rate Westergren 07/27/2019 [facility] [address] [place] [address] [phone] Sed Rate Westergren 2 mm/hr 0-20 30 C-Reactive Protein 07/27/2019 [facility] [address] [place] [address] [phone] C-Reactive Protein 0.3 mg/dL <0.9 31 Comprehensive Metabolic Panel 07/27/2019 [facility] [address] [place] [address] [phone] Protein, Total 6.4 g/dL 6.3-8.0 Albumin 4.6 [...] >60 . 33 CBC And Differential 07/27/2019 [facility] [address] [place] [address] [phone] WBC 7.63 k/uL 3.70-11.0 0 RBC 4.08 m/uL 3.90-5.20 Hemoglobin 13.4 g/dL 11.5-15.5 Hematocrit 39.3 % 36.0-46.0 MCV 96.3 fL 80.0-100. 0 MCH 32.8 pg 26.0-34.0 MCHC 34.1 g/dL 30.5-36.0 RDW-CV 11.9 % 11.5-15.0 Platelet Count 243 k/uL 150-400 MPV 9.5 fL 9.0-12.7 Neut% 58.4 % Abs Neut 4.44 k/uL 1.45-7.50 Lymph% 33.6 % Abs Lymph 2.56 k/uL 1.00-4.00 Austin% 5.8 % Abs Austin 0.44 k/uL <0.87 Eosin% 1.7 % Abs Eosin 0.13 k/uL <0.46 Baso% 0.5 % Abs Baso 0.04 k/uL <0.11 NRBCs 0.0 /100WBC 0 Absolute nRBC <0.01 k/uL <0.01 Dtype Auto Diff C difficile PCR 07/27/2019 [facility] [address] [place] [address] C difficile PCR Negative for C. <SEE NOTE> 34 Calprotectin, Fecal 07/27/2019 [facility] [address] [place] [address] Calprotectin, Fecal 58.3 mg/kg High <50.0 Calprotectin Interp Borderline Calprotectin Comment INTERPRETIVE INF <SEE NOTE> 35 C difficile PCR 04/16/2017 [facility]- Admitting [address] [place] [address] [phone] C difficile PCR Negative for C. <SEE NOTE> 36 Ova and Parasite Scr 04/16/2017 [facility] [address] [address] [phone] Ova and Parasite Scr Culture Result - <SEE NOTE> 37 Ova and Parasite Ex 04/16/[address] [address] Ova and Parasite Ex Culture Result - <SEE NOTE> 38 Fecal Fat/Qual 04/16/[address] [address] [phone] Fecal Fat/Qual Test Result - Le <SEE NOTE> 39 Fecal Lactoferrin 04/16/[address] [address] [phone] Fecal Lactoferrin Test Result - Ne <SEE NOTE> 40 Stool Culture 04/16/[address] [address] [phone] Stool Culture Campylobacter EI <SEE NOTE> 41 Fecal Occult Bld Tst 04/14/2017 [facility] [address] [phone] Fecal Occult Bld Tst Negative Negative 42 CBC And Differential 04/12/[address] [id number] WBC 5.83 k/uL 3.70-11.0 0 RBC 3.94 m/uL 3.90-5.20 Hemoglobin 13.2 g/dL 11.5-15.5 Hematocrit 39.1 % 36.0-46.0 MCV 99.2 fL 80.0-100. 0 MCH 33.5 pg 26.0-34.0 MCHC 33.8 g/dL 30.5-36.0 RDW-CV 12.2 % 11.5-15.0 Platelet Count 247 k/uL 150-400 MPV 9.9 fL 9.0-12.7 Neut% 61.4 % Abs Neut 3.56 k/uL 1.45-7.50 Lymph% 30.9 % Abs Lymph 1.80 k/uL 1.00-4.00 Austin% 6.0 % Abs Austin 0.35 k/uL <0.87 Eosin% 1.2 % Abs Eosin 0.07 k/uL <0.46 Baso% 0.5 % Abs Baso 0.03 k/uL <0.11 NRBCs 0.0 /100WBC 0 Absolute nRBC <0.01 k/uL <0.01 Dtype Auto Diff Comp Metabolic Panel 04/12/2017 [facility]- Admitting [place], [place] [id number] Protein, Total 6.5 g/dL 6.3-8.0 Albumin 4.5 [...] Other Races >60 . 44 TSH 04/12/2017 [facility] Lab- Admitting [address] [place], [place] [id number] TSH 1.250 uU/mL 0.400-5.5 00 45 Celiac Screen With Reflex 04/12/2017 [facility] Lab- Admitting [address] [place] [address] IgA 85 mg/dL [phone] Transglutaminas e IgA 4 units <20 46 Interpretation No serolog ic ran <SEE NOTE> <See Note> 47 Sodium, Stool 04/12/2017 [facility]- Admitting [address] [place] [address] Sodium, Stool Test Not Perform <SEE NOTE> mmol/L 48 Potassium, Stool 04/12/2017 [facility]- Admitting [address] [place] [address] [phone] Potassium, Stool Test Not Perform <SEE NOTE> [...] entirely in one cassette. 4 CPT Codes: 3782893, [id number] 5 [employer] [facility] NO RESPONSIBILITY FOR THE ACCURACY OF CPT CODES PROVIDED WHICH ARE FOR INFORMATIONAL PURPOSES ONLY. CPT CODES ARE PAYOR SPECIFIC AND CPT CODING IS THE SOLE RESPONSIBILITY OF THE BILLING ENTITY. 6 [facility] 7 SOFTWARE RELEASE MANAGER: MONSERRAT SO M.D. 8 [facility], [facility],[place] [address] [phone] Heartburn. Diarrhea. 10 A. DUODENUM, BIOPSY: [...] submitted entirely in a single cassette. 12 [id number] 13 [employer] [facility] NO RESPONSIBILITY FOR THE ACCURACY OF CPT CODES PROVIDED WHICH ARE FOR INFORMATIONAL PURPOSES ONLY. CPT CODES ARE PAYOR SPECIFIC AND CPT CODING IS THE SOLE RESPONSIBILITY OF THE BILLING ENTITY. 14 [facility] 15 SOFTWARE RELEASE MANAGER: MONSERRAT SO M.D. 16 [facility], 30 [facility] [address], [place], [place] [id number] [phone] Heartburn. Diarrhea. 18 B. STOMACH, GREATER [...] cassette. The gross evaluation was performed at [facility] [address] [place] [address]. 20 [id number] 21 [facility] NO RESPONSIBILITY FOR THE ACCURACY OF CPT CODES PROVIDED WHICH ARE FOR INFORMATIONAL PURPOSES ONLY. CPT CODES ARE PAYOR SPECIFIC AND CPT CODING IS THE SOLE RESPONSIBILITY OF THE BILLING ENTITY. 22 [facility] 23 SOFTWARE RELEASE MANAGER: MONSERRAT SO M.D. 24 [facility], 30 [facility], [facility] [address] [place], [place] [address] [phone] Clinically significa nt diarrhea of unexplained origin. Family history of Crohn's disease. 26 Random Received in formalin are multiple fragments of guadarrama tissue measuring 4.1 x 0.2 x 0.1 cm in aggregate. The specimen is submitted entirely in a single cassette. The gross evaluation was performed at [facility] [place] [address] [facility]. [address] [place] [address]. 27 COLON, RANDOM, BIOPS IES: TUBULAR ADENOMA [...] evidence of malignancy. 28 DONITA SO 29 [facility] 30 [facility] [address] [place] [id number] 31 [facility] [address] [place] [phone] 32 The [place] Diabete s Association (ADA) provides guidance for [...] Standards of Medical Care in Diabetes 2016, [place] Diabetes Association. Diabetes Care. 2016.39(Suppl 1). 33 [...] February 15, 2018, please contact the laboratory ([phone]) to discuss options. 36 Negative for C. [...] ped and its performance characteristics determined by [facility]'s [facility] Medicine [place] ([facility]). It has not been cleared or approved by the FDA. [facility] is regulated under CLIA as qualified to perform high-complexity testing. This test is used for clinical purposes. It should not be regarded as investigational or for research. 43 The [place] Diabete s Association (ADA) provides guidance for [...] Standards of Medical Care in Diabetes 2016, [place] Diabetes Association. Diabetes Care. 2016.39(Suppl 1). 44 [...] Clinical Practice Guideline. J Clin Endocrinol Metab, 2012:97:8955-9494. 2. Bran JIMENEZ. Overview of thyroid disease [...] specimens. Test developed and characteristics determined by [employer]. See Compliance Statement B: [employer] Performed by [facility], [address] [facility],[place] [id number] [email or web address], Jackson Davey MD, Lab. Director 49 Test Not Performed (NOTE) Test not performed. Specimen submitted is too viscous for testing. A credit will be issued. INTERPRETIVE INFORMATION: Fecal Potassium A reference interval has not been established for fecal specimens. Test developed and characteristics determined by [facility] [employer]. See Compliance Statement B: [employer] Performed by [facility] [employer], [address] [facility] [place] [address] [email or web address], Jackson Davey MD, Lab. Director 50 Diagnosis [...]
--- OUTSIDE RECORDS SUMMARY | 2024-12-29 09:33 | XMS_ITS | Encounter Summary ---
Author Organization [facility] Address [address] [place] [address] Care Team Providers Care Journeyman Powerhouse Operator Name Role Phone Kwesi Hernandez Unavailable [phone] Lesli Whatley TOOLS PROGRAMMER Unavailable [phone] Lesli Whatley CNP Primary Care Provider [phone] Lian Acosta APRN.TOOLS PROGRAMMER Unavailable [phone] Lazaro Peck MD Unavailable Source Comments In the event this information is protected by the Federal Confidentiality of Alcohol and Drug AbusePatient Records regulations: The Federal rules restrict any use of the information to criminally investigate or prosecute any alcohol or drug abuse patient.[facility] Encounter Details Date Type Department Care Team (Late st Contact Info) Description 05/19/2021 [place] [address] Provider, Ccf MRI Screening Questionnaire Completion Required [...] N ot on file 04/09/2020 Data from: https://www.neighborhoodatlas.medicine.[facility]/. 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 Not on file [...] of Assessment Author Yes 10/16/2014 2:16 PM oLrna George LPN * Do you have difficulty [...] on filedocumented in this encounter Care Teams Journeyman Powerhouse Operator Relationship Specialty Start Date End Date Lesli Whatley, TOOLS PROGRAMMER [address] [place] [address] PCP - General Family Medicine 08/10/18 Kwesi Hernandez [address] [facility] [place] [place] [address] Pain Management 09/17/14 Lesli Whatley, DONOVAN [address] [address] Referring Family Medicine 08/08/18 Lian Acosta APRN.DONOVAN [address] [place] [address] Gastroenterology 06/16/23 Lazaro Peck MD [address] [facility] [address] [place] [address] Gastroenterology 06/16/23 documented as of this encounter
--- OUTSIDE RECORDS SUMMARY | 2024-12-29 09:33 | XMS_ITS | Encounter Summary ---
Author Organization [facility] Address [address] [place] [facility] [place] [address] Care Team Providers Care Cloth Mender Name Role Phone Nica Alvarado DO Primary Care Provider [phone] Encounter Details Date Type Department Care Team (Latest Contact Info) Description 12/17/2024 Travel Social History Tobacco Use Types Packs/Day Years [...] Upcoming Encounters Date Type Department Care Team ( Contact Info) Description 01/04/2025 10:50 AM EDT Office Visit [facility] [address] [place] [phone] Riley King DO [address] [facility] [place] [address] documented as of this encounter Visit Diagnoses Not on filedocumented in this encounter Care Teams Cloth Mender Relationship Specialty Start Date End Date Nica Alvarado DO [address] [place] [phone] PCP - General Family Medicine 10/09/22 documented as of this encounter
--- OUTSIDE RECORDS SUMMARY | 2024-12-29 09:33 | XMS_ITS | Encounter Summary ---
Author Organization [facility] Address [address] [facility] [place] [address] Care Team Providers Care Core Winding Operator Name Role Phone Alvarado, Amy Primary Care Provider [phone] Encounter Details Date Type Department Care Team ([facility] Contact Info) Description 11/27/2022 Orders Only [facility] [address] [facility] [address] [place] [phone] Amanuel Jj DO [address] [place] [address] Localized osteoarthritis of right knee (Primary Dx) [...] 10:50 AM EDT Office Visit [facility] [address] [place] [address] [place] [address] Riley King DO [address] [place] [address] [place] [address] documented as of this encounter Visit Diagnoses Diagnosis Localized osteoarthritis of right knee- Primary documented in this encounter Care Teams Core Winding Operator Relationship Specialty Start Date End Date Nica Alvarado DO [address] [place] [address] PCP - General Family Medicine 10/09/22 documented as of this encounter
--- OUTSIDE RECORDS SUMMARY | 2024-12-29 09:33 | XMS_ITS | Encounter Summary ---
Author Organization [facility] Address [address] [place] [address] Care Team Providers Care Lab Technician Name Role Phone Kwesi Hernandez Unavailable [phone] Lesli Whatley NET TECHNICAL ARCHITECT Unavailable [phone] Lesil Whatley CNP Primary Care Provider [phone] Lian Acosta APRN.NET TECHNICAL ARCHITECT Unavailable [phone] Lazaro Peck MD Unavailable Source Comments In the event this information is protected by the Federal Confidentiality of Alcohol and Drug AbusePatient Records regulations: The Federal rules restrict any use of the information to criminally investigate or prosecute any alcohol or drug abuse patient.[facility] Encounter Details Date Type Department Care Team (Late st Contact Info) Description 06/02/2021 [place] [address] Provider, Ccf MRI Screening Questionnaire Completion Required [...] N ot on file 04/09/2020 Data from: https://www.neighborhoodatlas.medicine.[facility]/. 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 on file Not [...] on filedocumented in this encounter Care Teams Lab Technician Relationship Specialty Start Date End Date Lesli Whatley, NET TECHNICAL ARCHITECT [address] [place] [address] PCP - General Family Medicine 08/10/18 Kwesi Hernandez [address] [facility] [place] [address] Pain Management 09/17/14 Lesli Whatley, DONOVAN [address] [place] [address] Referring Family Medicine 08/08/18 Lian Acosta APRN.DONOVAN [address] [place] [address] Gastroenterology 06/16/23 Lazaro Peck MD [address] [facility] [address] [place] [address] Gastroenterology 06/16/23 documented as of this encounter
--- OUTSIDE RECORDS SUMMARY | 2024-12-29 09:33 | XMS_ITS | Encounter Summary ---
Author Organization [facility] Address [address] [facility] [place] [address] Care Team Providers Care Adult Basic Education Teacher Name Role Phone Alvarado, Amy Primary Care Provider [phone] Encounter Details Date Type Department Care Team (Late Contact Info) Description 12/15/2024 Clinisync Result Encounter [facility] External Department Unsolicited Riley King DO [facility] [address] [place], [place] [address] Social History Tobacco Use Types Packs/Day Years [...] Visit [facility] [place] [facility] [address] [place] [address] Riley King DO [address] [place] [address] documented as of this encounter Procedures Procedure Name Priority Date/Time Associated Diagnosis Comments SRMCOH PROTHROMBIN TIME INR W/O COUM Routine 12/15/2024 11:43 AM EDT [facility] LIVER PANEL Routine 12/15/2024 11:4 3 AM EDT ALL CBC WITH AUTO DIFF Routine 12/15/2024 11:43 AM EDT ALL BASIC METABOLIC PANEL Routine 12/15/2024 11:43 AM EDT documented in this encounter Results * SRMCOH PROTHROMBIN TIME INR W/O COUM (12/15/2024 11:43 AM EDT) PROTHROMBIN TIME 11.3 9.0 - 11.6 sec TB TB INR 1.07 TBH Comment: DESIRED INR: 2.0-3.0 CONDITIONS NOT LISTED BELOW 2.5-3.5 FOR PROSTHETIC HEART VALVE REPLACEMENT 2.5-3.5 RECURRENT THROMBOSIS 12/15/2024 11:4 3 AM EDT 12/15/2024 11:46 AM EDT Narrative CLINISYNC - 12/15/2024 1:05 PM EDT us Riley Christine DO CLINIS[facility]NC Final [facility] * (ABNORMAL) ALL CBC WITH AUTO DIFF (12/15/2024 11:43 AM EDT) TBH WBC 5.7 4.0 - 11.0 10 3/uL TBH TBH RBC 4.29 4.20 - 5.40 10 6/uL TBH TBH HGB 13.9 12.0 - 16.0 g/dL TBH TBH HCT 39.4 36.0 - 48.0 % TBH TBH MCV 91.8 81.0 - 99.0 fL TBH TBH MCH 32.4 26.7 - 34.0 pg TBH TBH MCHC 35.3(H) 29.9 - 35.2 g/dL TBH TBH RDW 12.2 11.0 - 15.0 % TBH TBH PLT 221 150 - 450 10 3/uL TBH TBH MPV 8.8(L) 9.5 - 13.5 fL TBH NEUTROPHILS PERCENT AUTO 64.2 43.0 - 75.0 % TBH LYMPHOCYTES PERCENT AUTO 27.2 20.5 - 60.0 % TBH MONOCYTES PERCENT AUTO 7.5 1.7 - 12.0 % TBH TBH EO % 0.2(L) 0.9 - 7.0 % TBH BASOPHILS PERCENT AUTO 0.5 0.2 - 2.0 % TBH IMMATURE GRANULOCYTES PCT AUTO 0.4 0.0 - 0.5 % TBH NEUTROPHILS ABSOLUTE AUTO 3.7 1.4 - 6.5 10 3/uL TBH LYMPHOCYTES ABSOLUTE AUTO 1.6 1.2 - 3.8 10 3/uL TBH MONOCYTES ABSOLUTE AUTO 0.4 0.3 - 0.8 10 3/uL TBH TBH EO # 0.0 0.0 - 0.7 10 3/uL TBH BASOPHILS ABSOLUTE AUTO 0.0 0.0 - 0.1 10 3/uL TBH IMMATURE GRANULOCYTES ABS AUTO 0.02 0.00 - 0.03 10 3/uL TBH 12/15/2024 11:4 3 AM EDT 12/15/2024 11:46 AM EDT Narrative CLINISYNC - 12/15/2024 12:42 PM EDT Riley King DO CLINISYNC Final Result [facility] * (ABNORMAL) ALL BASIC METABOLIC PANEL (12/15/2024 11:43 AM EDT) SODIUM 138 136 - 145 mmol/L TBH POTASSIUM 4.3 3.5 - 5.1 mmol/L TBH CHLORIDE 103 98 - 107 mmol/L TBH CARBON DIOXIDE 28.6 21.0 - 32.0 mmol/L TBH ANION GAP 10.7 TBH GLUCOSE 107(H) 74 - 106 mg/dL TBH BLOOD UREA NITROGEN 15.0 7.0 - 18.0 mg/dL TBH CREATININE 0.87 0.55 - 1.02 mg/dL TBH TBH EGFR-AF BERMUDIAN >60 >=60 mL/min/1.7 3m 2 TBH TBH EGFR-NON AF BERMUDIAN >60 >=60 mL/min/1.7 3m 2 TBH BUN CREATININE RATIO 17.2 TBH CALCIUM 9.4 8.5 - 10.1 mg/dL TBH 12/15/2024 11:4 3 AM EDT 12/15/2024 11:46 AM EDT Narrative CLINISYNC - 12/15/2024 12:23 PM EDT Riley Christine DO CLINISYNC Final Result Performing Organization Address City/[facility]/ZIP Co de Phone Number CLINISYNC TBH * (ABNORMAL) [facility] LIVER PANEL (12/15/2024 11:43 AM EDT) BILIRUBIN TOTAL 0.3 0.2 - 1.0 mg/dL TBH BILIRUBIN DIRECT 0.1 0.0 - 0.2 mg/dL TBH ASPARTATE AMINO TRANSFERASE 9(L) 15 - 37 U/L TBH ALANINE AMINOTRANSFERASE 16 14 - 59 U/L TBH ALKALINE PHOSPHATASE 134(H) 46 - 116 U/L TBH TOTAL PROTEIN 6.9 6.4 - 8.2 g/dL TBH ALBUMIN LEVEL 4.0 3.4 - 5.0 g/dL TBH GLOBULIN 2.9 g/dL TBH ALBUMIN GLOBULIN RATIO 1.4 TBH 12/15/2024 11:4 3 AM EDT 12/15/2024 11:46 AM EDT Narrative CLINISYNC - 12/15/2024 12:23 PM EDT Riley Christine DO CLINISYNC Final Result CLINISYNC TBH documented in this encounter Visit Diagnoses Not on filedocumented in this encounter Care Teams Adult Basic Education Teacher Relationship Specialty Start Date End Date Nica Alvarado [place] [phone] PCP - General Family Medicine 10/09/22 documented as of this encounter
--- OUTSIDE RECORDS SUMMARY | 2024-12-29 09:33 | XMS_ITS | Clinical Summary ---
Author Organization [facility] Address [facility] [place] [address] Care Team Providers Care Steward/Stewardess Wine Name Role Phone Kwesi Hernandez Unavailable [phone] Lesli Whatley HOTEL MAINTENANCE WORKER Unavailable [phone] Lesil Whatley HOTEL MAINTENANCE WORKER Primary Care Provider Lian Acosta APRN.HOTEL MAINTENANCE WORKER Unavailable Lazaro Peck MD Unavailable Allergies Active [...] (04/21/2018): Added automatically from request for surgery [id number] Assessment & Plan (01/03/2020 12:00 PM EDT): Assessment: Medication for Control fo symptoms per Pt. report Assessment & Plan (11/02/2019 4:28 PM EDT): Assessment: controlled on rx Central hearing loss, bilateral 09/15/2016 Auditory neuropathy 09/15/2016 Chronic pain 10/16/2014 PTSD (post-traumatic stress disorder) Overview (10/16/2014): had to place child for adoption at age 13 Anxiety and depression Overview (10/16/2014): Lacy Mello [facility] counseling Assessment & Plan (11/02/2019 4:24 PM [...] is lower risk 4 07/04/2024 Data from: https://www.neighborhoodatlas.medicine.[facility].edu/. 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 Not on file Not [...] 01/06/2019, 01/22/2011 Medical Devices Implanted Type Area Preprint Analyst Device Identifier Shelf Expiration Date Model / Serial / Lot Fibertak Knotless Hip Suture [place] W/#2 Fiberwire Cl Suture Implanted:Qty: 1 on 01/18/2020 at [facility] [place] Right: Bone - Hip [employer] 11/30/2024 [id number]-3638H / / [id number] Description:KNOTLESS HIP FIB ERTAK Fibertak Knotless Hip Suture [place] W/#2 Fiberwire Cl Suture Implanted:Qty: 1 on 01/18/2020 at [facility] [place] Right: Bone - Hip [employer] 11/30/2024 [id number]-3638H / / [id number] Description:KNOTLESS HIP FIB ERTAK Fibertak Knotless Hip Suture [place] W/#2 Fiberwire Cl Suture Implanted:Qty: 1 on 01/18/2020 at [facility] [place] Right: Bone - Hip [employer] 11/30/2024 [id number]-[id number] / / [id number] Description:KNOTLESS HIP FIB ERTAK Insurance [place]ICA[place] Care Teams Steward/Stewardess Wine Relationship Specialty Start Date End Date Lesli Whatley, HOTEL MAINTENANCE WORKER [address] [phone] PCP - General Family Medicine 08/10/18 Kwesi Hernandez [address] [facility] [place] [address] Pain Management 09/17/14 Lesli Whatley, HOTEL MAINTENANCE WORKER [address] [facility] [place] [address] Referring Family Medicine 08/08/18 Lian Acosta APRN.HOTEL MAINTENANCE WORKER [address] [facility] [address] [place] [address] Gastroenterology 06/16/23 Lazaro Peck MD [address] [facility] 200 [place] [address] Gastroenterology 06/16/23
--- OUTSIDE RECORDS SUMMARY | 2024-12-29 09:33 | XMS_ITS | Encounter Summary ---
Author Organization [facility] Address [facility] [place] [address] Care Team Providers Care Wire Spinner Name Role Phone Kwesi Hernandez Unavailable [phone] Lesli Whatley PLUMBER'S ASSISTANT Unavailable [phone] Lesli Whatley PLUMBER'S ASSISTANT Primary Care Provider [phone] Lian Acosta APRN.PLUMBER'S ASSISTANT Unavailable [phone] Lazaro Peck MD Unavailable Source Comments In the event this information is protected by the Federal Confidentiality of Alcohol and Drug AbusePatient Records regulations: The Federal rules restrict any use of the information to criminally investigate or prosecute any alcohol or drug abuse patient.[facility] Encounter Details Date Type Department Care Team (Late st Contact Info) Description 10/23/2019 Get Medical Advice General Surgery [address] [facility] [place] [address] Gilberto Mendoza III, MD [address] [place], [place] [id number] RE: Non-Urgent Medical Question Social History Tobacco [...] 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 The surgeon's maintenance representative and patient have discussed in detail [...] made between the patient and the surgeon's maintenance representative to proceed at this time with [...] (11/05/2019 1:40 PM EDT) COVID 19 Source THORACIC MEDICINE SPECIALIST Nasopharyngeal swab 0 9:39 PM EDT [facility] COVID 19 Result THORACIC MEDICINE SPECIALIST Negative for COVID19 (SARS CoV2) by PCR. Negative for COVID19 (SARS CoV2) by PCR. 0 6:11 AM EDT [facility] Comment: This test was developed and its performance characteristics determined by [facility]'s Jack Hoff [facility] Pathology and Laboratory Medicine [place]. This test has been authorized by FDA [...] PA-C MICROBIOLOGY Edited R esult - Final [facility] [address] [place] [address] [facility] [address] [place] [address] documented in this encounter Visit Diagnoses Diagnosis Incisional hernia, without obstruction or gangrene- Primary Incisional hernia without mention of obstruction or gangrene documented in this encounter Care Teams Wire Spinner Relationship Specialty Start Date End Date Lesli Whatley, PLUMBER'S ASSISTANT [address] Vazquez [facility] [place] [address] PCP - General Family Medicine 08/10/18 Kwesi Hernandez [address] [place] [address] Pain Management 09/17/14 Lesli Whatley, PLUMBER'S ASSISTANT [address] [facility] Taylor [facility] [place] [address] Referring Family Medicine 08/08/18 Lian Acosta APRN.PLUMBER'S ASSISTANT [address] [address] Gastroenterology 06/16/23 Lazaro Peck MD [address] [place] [address] Gastroenterology 06/16/23 documented as of this encounter
--- OUTSIDE RECORDS SUMMARY | 2024-12-29 09:33 | XMS_ITS | Clinical Summary ---
Author Organization [facility] Address [address] [place] [address] Care Team Providers Care Multicraft Operator Name Role Phone Unavailable Primary Care Provider [...]
--- OUTSIDE RECORDS SUMMARY | 2024-12-29 09:33 | XMS_ITS | Encounter Summary ---
Author Organization [facility] Address [facility] [place] [address] Care Team Providers Care Curtain Cleaner Name Role Phone Kwesi Hernandez Unavailable [phone] Lesli Whatley VEGETABLE THINNER Unavailable [phone] Lesli Whatley VEGETABLE THINNER Primary Care Provider [phone] Lian Acosta APRN.VEGETABLE THINNER Unavailable [phone] Lazaro Peck MD Unavailable Source Comments In the event this information is protected by the Federal Confidentiality of Alcohol and Drug AbusePatient Records regulations: The Federal rules restrict any use of the information to criminally investigate or prosecute any alcohol or drug abuse patient.[facility] Encounter Details Date Type Department Care Team (Late st Contact Info) Description 11/02/2019 Get Medical Advice General Surgery [address] [facility] [place] [place] [address] Gilberto Mendoza III, MD [address] [place] [place], [place] [id number] RE: Upcoming Appointment Question Social History Tobacco [...] 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 [...] on filedocumented in this encounter Care Teams Curtain Cleaner Relationship Specialty Start Date End Date Lesli Whatley, VEGETABLE THINNER [address] [place] [address] PCP - General Family Medicine 08/10/18 Kwesi Hernandez [address] [facility] [place] [address] Pain Management 09/17/14 Lesli Whatley, VEGETABLE THINNER [address] [facility] [place] [address] Referring Family Medicine 08/08/18 Lian Acosta APRN.VEGETABLE THINNER [address] [place] [address] Gastroenterology 06/16/23 Lazaro Peck MD [address] [place] [address] Gastroenterology 06/16/23 documented as of this encounter
--- OUTSIDE RECORDS SUMMARY | 2024-12-29 09:33 | XMS_ITS | Encounter Summary ---
Author Organization [facility] Address [address] [facility] [place] [address] Care Team Providers Care Safety Equipment Tester Name Role Phone Alvarado, Amy Primary Care Provider [phone] Encounter Details Date Type Department Care Team ([facility] Contact Info) Description 11/24/2022 Orders Only [facility] [address] [facility] [address] [place] [address] Amanuel Jj DO [address] [place] [address] Localized osteoarthritis of right knee (Primary Dx) [...] 10:50 AM EDT Office Visit [facility] [address] [place] [address] [place] [address] Riley King DO [address] [place] [address] [place] [address] documented as of this encounter Visit Diagnoses Diagnosis Localized osteoarthritis of right knee- Primary documented in this encounter Care Teams Safety Equipment Tester Relationship Specialty Start Date End Date Nica Alvarado DO [address] [place] [address] PCP - General Family Medicine 10/09/22 documented as of this encounter
--- OUTSIDE RECORDS SUMMARY | 2024-12-29 09:33 | XMS_ITS | Encounter Summary ---
Author Organization [facility] Address [address] [place] [address] Care Team Providers Care Chain Sales Consultant Name Role Phone Kwesi Hernandez Unavailable [phone] Lesli Whatley LEATHER PATCHER Unavailable [phone] Lesli Whatley LEATHER PATCHER Primary Care Provider Lian Acosta APRN.LEATHER PATCHER Unavailable Lazaro Peck MD Unavailable Source Comments In the event this information is protected by the Federal Confidentiality of Alcohol and Drug AbusePatient Records regulations: The Federal rules restrict any use of the information to criminally investigate or prosecute any alcohol or drug abuse patient.[facility] Encounter Details Date Type Department Care Team (Late st Contact Info) Description 01/23/2019 Get Medical Advice Rheumatology [address] [phone] Nikko Wills MD, PhD [address] [place] [address] RE: Non-Urgent Medical Question Social [...] 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 [...] on filedocumented in this encounter Care Teams Chain Sales Consultant Relationship Specialty Start Date End Date Lesli Whatley CNP [address] [place] [address] [address] [facility] [place] [address] PCP - General Family Medicine 08/10/18 Kwesi Hernandez [address] [place] [address] Pain Management 09/17/14 Lesli Whatley, LEATHER PATCHER [address] [place] [address] Referring Family Medicine 08/08/18 Lian Acosta, JAYME.LEATHER PATCHER [address] [facility] 200 [place] [address] Gastroenterology 06/16/23 Lazaro Peck MD [address] [facility] 200 [place] [address] Gastroenterology 06/16/23 documented as of this encounter
--- OUTSIDE RECORDS SUMMARY | 2024-12-29 09:33 | XMS_ITS | Encounter Summary ---
Author Organization [facility] Address [address] [place] [address] Care Team Providers Care Title I Instructional Assistant Name Role Phone Kwesi Hernandez Unavailable [phone] Lesli Whatley FEATHER SAWYER Unavailable [phone] Lesli Whatley FEATHER SAWYER Primary Care Provider [phone] Lian Acosta APRN.FEATHER SAWYER Unavailable Lazaro Peck MD Unavailable Source Comments In the event this information is protected by the Federal Confidentiality of Alcohol and Drug AbusePatient Records regulations: The Federal rules restrict any use of the information to criminally investigate or prosecute any alcohol or drug abuse patient.[facility] Encounter Details Date Type Department Care Team (Latest Contact Info) Description 06/26/2021 Patient [facility] [address] [place] [address] Bonifacio Serrano MD [address] [place] [address] Request an Appointment Social History [...] N ot on file 04/09/2020 Data from: https://www.neighborhoodatlas.[facility]/. 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 Not [...] on filedocumented in this encounter Care Teams Title I Instructional Assistant Relationship Specialty Start Date End Date Lesli Whatley, FEATHER SAWYER [address] [place] [facility] [place] [address] PCP - General Family Medicine 08/10/18 Kwesi Hernandez [address] [facility] [place] [address] Pain Management 09/17/14 Lesli Whatley, FEATHER SAWYER [address] [facility] [place] [address] Referring Family Medicine 08/08/18 Lian Acosta APRN.FEATHER SAWYER [address] [place] [address] Gastroenterology 06/16/23 Lazaro Peck MD [address] [facility] 200 [place] [address] Gastroenterology 06/16/23 documented as of this encounter
--- OUTSIDE RECORDS SUMMARY | 2024-12-29 09:33 | XMS_ITS | Encounter Summary ---
Author Organization [facility] Address [address] [facility] [place] [address] Care Team Providers Care Railroad Brakeman Name Role Phone Nica Alvarado DO Primary Care Provider [phone] Encounter Details Date Type Department Care Team (Latest Contact Info) Description 12/18/2024 Travel Social History Tobacco Use Types Packs/Day [...] EDT Office Visit [facility] [address] [facility] [place] [address] Riley King DO [address] [facility] [place] [address] documented as of this encounter Visit Diagnoses Not on filedocumented in this encounter Care Teams Railroad Brakeman Relationship Specialty Start Date End Date Nica Alvarado DO [address] [place] [phone] PCP - General Family Medicine 10/09/22 documented as of this encounter
--- OUTSIDE RECORDS SUMMARY | 2024-12-29 09:33 | XMS_ITS | Encounter Summary ---
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 Not [...] on filedocumented in this encounter Care Teams Wrapper Stemmer Hand Relationship Specialty Start Date End Date Lesli Whatley CNP [address] [place] [address] [facility] [place] [phone] PCP - General Family Medicine 08/10/18 Kwesi Hernandez [address] [place] [address] Pain Management 09/17/14 Lesli Whatley, DUKEY RIDER [address] [place] [address] Referring Family Medicine 08/08/18 Lian Acosta APRN.DUKEY RIDER 850 [facility] 200 [place] [address] Gastroenterology 06/16/23 Lazaro Peck MD [address] [facility] 200 [place] [address] Gastroenterology 06/16/23 documented as of this encounter
--- OUTSIDE RECORDS SUMMARY | 2024-12-29 09:33 | XMS_ITS | Encounter Summary ---
Author Organization [facility] Address [address] [place] [address] Care Team Providers Care Manufacturing Engineer Chief Name Role Phone Kwesi Hernandez Unavailable [phone] Lesli Whatley SURFACE LOGGING SYSTEMS LOGGER Unavailable Lesli Whatley SURFACE LOGGING SYSTEMS LOGGER Primary Care Provider Lian Acosta APRN.SURFACE LOGGING SYSTEMS LOGGER Unavailable [phone] Lazaro Peck MD Unavailable Source Comments In the event this information is protected by the Federal Confidentiality of Alcohol and Drug AbusePatient Records regulations: The Federal rules restrict any use of the information to criminally investigate or prosecute any alcohol or drug abuse patient.[facility] Encounter Details Date Type Department Care Team (Latest Contact Info) Description 12/18/2019 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 Not [...] on filedocumented in this encounter Care Teams Manufacturing Engineer Chief Relationship Specialty Start Date End Date Lesli Whatley CNP [address] [place] [address] [place] [address] PCP - General Family Medicine 08/10/18 Kwesi Hernandez [address] [facility] [place] [address] Pain Management 09/17/14 Lesli Whatley, SURFACE LOGGING SYSTEMS LOGGER [address] [facility] [place] [address] Referring Family Medicine 08/08/18 Lian Acosta APRN.SURFACE LOGGING SYSTEMS LOGGER [address] [facility] 200 [place] [address] Gastroenterology 06/16/23 Lazaro Peck MD [address] [facility] 200 [place] [address] Gastroenterology 06/16/23 documented as of this encounter
--- OUTSIDE RECORDS SUMMARY | 2024-12-29 09:33 | XMS_ITS | Encounter Summary ---
Author Organization [facility] Address [address] [facility] [place] [address] Care Team Providers Care Outside Sales Inspector Name Role Phone Nica Alvarado DO Primary Care Provider [phone] Encounter Details Date Type Department Care Team (Latest Contact Info) Description 12/28/2024 Travel Social History Tobacco Use Types Packs/Day [...] EDT Office Visit [facility] [address] [facility] [place] [address] Riley King DO [address] [facility] [place] [address] documented as of this encounter Visit Diagnoses Not on filedocumented in this encounter Care Teams Outside Sales Inspector Relationship Specialty Start Date End Date Nica Alvarado DO [address] [place] [phone] PCP - General Family Medicine 10/09/22 documented as of this encounter
--- OUTSIDE RECORDS SUMMARY | 2024-12-29 09:33 | XMS_ITS | Clinical Summary ---
Author Organization [facility] Address [address] [place] [address] Care Team Providers Care Inspector Of Weights And Measures Name Role Phone Nica Alvarado Primary Care Provider [phone] Allergies Active Allergy Reactions Criticality Noted Date [...] bedtime. 3 Active Vraylar 6 MG capsule 3 Active clonazePAM (KlonoPIN) 1 MG tablet 3 Active esomeprazole (NexIUM) [address] capsule 3 Active lamoTRIgine (LaMICtal) 200 MG tablet 3 Active methocarbamol (Robaxin) 500 MG tablet 3 Active ondansetron ODT (Zofran-ODT) 4 MG disintegrating tablet 2 Active pregabalin (Lyrica) 200 MG capsule Take 200 mg by mouth in the morning and 200 mg in the evening and 200 mg before bedtime. 3 Active traZODone (Desyrel) 100 MG tablet 3 Active desvenlafaxine (Pristiq) 100 MG 24 hr tablet Take 200 mg by mouth Daily Active alpha tocopherol (Vitamin E) 400 units capsule Active lamoTRIgine (LaMICtal) 100 MG tablet Take 1 tablet by mouth at bedtime 4 Active prazosin (Minipress) 2 MG capsule 4 Active hydrOXYzine pamoate (Vistaril) 25 MG capsule 5 Active Active Problems Problem Noted Date Diagnosed Date S/P right knee arthroscopy 12/07/2022 Localized osteoarthritis of right knee 3 Acute pain of right knee 10/09/2022 Internal derangement of right knee 10/09/2022 Encounters Date Type Department Care Team Description 12/28/2024 Travel 12/21/2024 Results Follow-Up [facility] [address] [place] [address] Gretel Burton PA Dermatopathology exam 12/18/2024 1:00 PM EDT Office Visit [facility] [address] [place] [address] Gretel Burton PA Neoplasm of unspecified behavior of bone, soft tissue, and skin (Primary Dx) 12/18/2024 Bamboo flowsheet [facility] [address] [place] [address] Gretel Burton PA 12/18/2024 Travel 12/17/2024 Travel 12/15/2024 Clinisync Result Encounter [facility] External Department Unsolicited Fco King DO 12/15/2024 Clinisync Result Encounter NOMS External Department Unsolicited Fco King DO 12/05/2024 1:10 PM EDT Consult [facility] [address] [place] [address] Fco King, DO Pre-operative exam; Pain of ovary; History of ovarian cyst 12/05/2024 Bamboo flowsheet [facility] [address] [place] [address] Fco King, DO 11/08/2024 2:00 PM EDT Ancillary Procedure [facility] [place] [phone] Pain of ovary; History of ovarian cyst 11/07/2024 Travel 10/23/2024 1:10 PM EDT Office Visit [facility] [place] [address] Fco King, Pain of ovary; History of ovarian cyst 10/23/2024 Bamboo flowsheet [facility] [address] [place] [address] [place] [address] Fco King, 10/22/2024 Travel 10/03/2024 3:00 PM EDT Office Visit [facility] [address] [place] [address] Doltiarra Baldo R, DPM FACFAS Neoplasm of uncertain behavior of skin (Primary Dx); Mass of left foot 10/03/2024 Bamboo flowsheet [facility] [address] [place] [address] Dolce, Baldo R, DPM FACFAS 10/02/2024 Travel from Last 3 Months Family History Medical History Relation Name Comments Diabetes Father Grandpa Heart disease Father Grandpa Hypertension Father Grandpa Hypothyroidism Father Grandpa Mental illness Father Grandpa Cancer Maternal Grandfather Don Chime Diabetes Maternal Grandfather Don Chime Heart disease Maternal Grandfather Don Chime Lung disease Maternal Grandfather Don Chime Stroke Maternal Grandfather Don Chime Cancer Maternal Grandmother Juhi Chime Relation Name Status Comments Father Grandpa Alive [...] 10:50 AM EDT Office [facility] [address] [facility] [place] [address] Fco King DO [address] [facility] [place] [address] Health Maintenance Due Date Last Done Comments [...] behavior of bone, soft tissue, and skin [facility] PROTHROMBIN TIME INR W/O COUM Routine 12/15/2024 11:43 AM EDT ALL CBC WITH AUTO DIFF Routine 11:43 AM EDT ALL BASIC METABOLIC PANEL Routine 12/15/2024 11:43 AM EDT [facility] LIVER PANEL Routine 12/15/2024 11:4 3 AM EDT ECG 12-LEAD 12/15/2024 9:39 AM EDT US PELVIC COMPLETE W/ TV Routine 025 2:20 PM EDT Pain of ovary History of ovarian cyst POCT URINALYSIS DIPSTICK Routine 025 1:21 PM EDT Pain of ovary History of ovarian cyst from Last 3 Months Results * Lesion biopsy (12/18/2024 1:21 PM EDT) Saskia Bolaños MA - 12/18/2024 1:21 PM EDT Type [...] cc Gretel [facility] DERM PROCEDURE ORDERABLES Kiya l Result * Dermatopathology exam (12/18/2024 12:00 AM EDT) SPECIMEN TYPE ------ SPECIMEN: MID BACK ------ [facility] ICD10 Code D23.5 [facility] PROTOCOL FF - FLAT, FRAGMENT [facility] 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 [facility] Gross Text flat measuring 0.9x0.9x0.5cm bisected [facility] Microscopic Description Microscopic examination performed. [facility] CPT 78099*1 [facility] Skin Topography unknown / Unknown 12/18/2024 1:21 PM EDT Comment:Differential Diagnos is: Inflamed IDN Check Margins: No Size of lesion: 0.7 x 0.6 cm Diagnosis: (D49.2) Neoplasm of unspecified behavior of bone, soft tissue, and skin Plan: Lesion biopsy Gretel [facility] LAB PATHOLOGY ORDERABLES Final Result [facility] * [facility] PROTHROMBIN TIME INR W/O COUM (12/15/2024 11:43 AM EDT) Pathologist [facility] PROTHROMBIN TIME 11.3 9.0 - 11.6 sec TBH TBH INR 1.07 TBH Comment: DESIRED INR: 2.0-3.0 CONDITIONS NOT LISTED BELOW 2.5-3.5 FOR PROSTHETIC HEART VALVE REPLACEMENT 2.5-3.5 RECURRENT THROMBOSIS 12/15/2024 11:4 3 AM EDT 12/15/2024 11:46 AM EDT Narrative [facility] - 12/15/2024 1:05 PM EDT Fco King DO [facility] Final Result [facility] TB * (ABNORMAL) [facility] LIVER PANEL (12/15/2024 11:43 AM EDT) Pathologist [facility] BILIRUBIN TOTAL 0.3 0.2 - 1.0 mg/dL TB BILIRUBIN DIRECT 0.1 0.0 - 0.2 mg/dL TBH ASPARTATE AMINO TRANSFERASE 9(L) 15 - 37 U/L TBH ALANINE AMINOTRANSFERASE 16 14 - 59 U/L TBH ALKALINE PHOSPHATASE 134(H) 46 - 116 U/L TBH TOTAL PROTEIN 6.9 6.4 - 8.2 g/dL TBH ALBUMIN LEVEL 4.0 3.4 - 5.0 g/dL TBH GLOBULIN 2.9 g/dL TBH ALBUMIN GLOBULIN RATIO 1.4 TB 12/15/2024 11:4 3 AM EDT 12/15/2024 11:46 AM EDT Narrative [facility] - 12/15/2024 12:23 PM EDT Fco Christine DO [facility] * (ABNORMAL) ALL CBC WITH AUTO DIFF (12/15/2024 11:43 AM EDT) Pathologist [facility] TB WBC 5.7 4.0 - 11.0 10 3/uL TBH TB RBC 4.29 4.20 - 5.40 10 6/uL TBH TB HGB 13.9 12.0 - 16.0 g/dL TB TB HCT 39.4 36.0 - 48.0 % TBH TB MCV 91.8 81.0 - 99.0 fL TB TB MCH 32.4 26.7 - 34.0 pg TBH TB MCHC 35.3(H) 29.9 - 35.2 g/dL TB TB RDW 12.2 11.0 - 15.0 % TBH [...] Narrative CL[facility] - 12/15/2024 12:42 PM EDT Fco King DO CL[facility] Final Result [facility] * (ABNORMAL) ALL BASIC METABOLIC PANEL (12/15/2024 [...] 0.55 - 1.02 mg/dL TBH TBH EGFR-AF KOSOVAN >60 >=60 mL/min/1.7 3m 2 TBH TBH EGFR-NON AF KOSOVAN >60 >=60 mL/min/1.7 3m 2 TBH BUN CREATININE RATIO 17.2 TBH CALCIUM 9.4 8.5 - 10.1 mg/dL TBH 12/15/2024 11:4 3 AM EDT 12/15/2024 11:46 AM EDT Narrative CLINISYNC - 12/15/2024 12:23 PM EDT us Fco King DO CLINISYNC Final Result [facility] * ECG 12-LEAD (12/15/2024 9:39 AM EDT) Anatomical Region Laterality Modality Other 12/15/2024 9:39 AM EDT Narrative 12/15/2024 8:52 [place] [address] Electrocardiograph Report Signed Patient: ED GE MR#: [id number] : 1985 Acct:[id number] Age/Sex: 39 / F ADM Date: 12/15/24 Loc: [facility] Attending Dr: Fco King D.O. Ordering Physician: Fco King D.O. Date of Service: 12/15/24 Procedure(s): ECG 12 lead Accession Number(s): [id number] cc: [facility] Test Date: 2024-12-15 Pat Name: ED GE Department: Room: - Gender: Female Senior Officer: : 1985 Requested By: FCO KING Order Number: [id number] Reading MD: PEREZ KEANE M.D. Measurements Intervals [place] Rate: 51 P: 39 TX: 173 QRS: 22 QRSD: 84 T: 26 QT: 396 QTc: 367 Interpretive Statements SINUS BRADYCARDIA WITH SINUS ARRHYTHMIA Otherwise normal ECG No previous ECG available for comparison Electronically Signed On 12-15-2024 20:51:47 EDT by PEREZ KEANE M.D. Dictated By: PEREZ KEANE Signed By: 12/15/242051 DD/ 8 TD/TT: Police Academy Instructor: Procedure Note Radiology, Radiologist, - 12/15/2024 [place] [address] Electrocardiograph Report Signed Patient: ED GEMR#: [id number] : 1985Acct:[id number] Age/Sex: 39 / FADM Date: 12/15/24 Loc: PST Attending Dr: Fco King D.O. Ordering Physician: Fco King D.O. Date of Service: 12/15/24 Procedure(s): ECG 12 lead Accession Number(s): [id number] cc: [facility] Test Date: 2024-12-15 Pat Name: ED GE Department: Room: - Gender: Female Senior Officer: : 1985 Requested By: FCO KING Order Number: [id number] Reading MD: PEREZ KEANE M.D. Measurements Intervals [place] Rate: 51 P: 39 TX: 173 QRS: 22 QRSD: 84 T: 26 QT: 396 QTc: 367 Interpretive Statements SINUS BRADYCARDIA WITH SINUS ARRHYTHMIA Otherwise normal ECG No previous ECG available for comparison Electronically Signed On 12-15-2024 20:51:47 EDT by PEREZ KEANE M.D. Dictated By: PEREZ KEANE Signed By:12/15/242051 DD/ 8 TD/TT: Police Academy Instructor: us Fco King DO [facility] IMAGING Final Result * US Pelvis w/ TV (11/08/2024 2:20 [...] BY: ELECTRONICALLY SIGNED BY: Campbell Rivers MD Rin Randall NP IMG US PROCEDURES Final [...] - 9 Protein, UA Negative Negative - 2000(20) ++++ mg/dL Urobilinogen, UA 0.2 0.2 - 12 mg/dL Leukocytes, UA Negative Negative - 500+++ Jerrica/mcL Nitrite, UA Negative Negative - Positive Urine 10/23/2024 1:21 PM EDT Fco King DO POINT OF CARE TEST ENTER/EDIT OR DERABLES Final Result from Last 3 Months Insurance MEDICARE MEDICAID [place] Care Teams Inspector Of Weights And Measures Relationship Specialty Start Date End Date Nica Alvarado DO [address] [place] [address] PCP - General Family Medicine 10/09/22
--- OUTSIDE RECORDS SUMMARY | 2024-12-29 09:33 | XMS_ITS | Clinical Summary ---
Author Organization [facility] Address [address] [place] [address] Phone Care Team Providers Care Roving Machine Operator Name Role Phone Unavailable Primary Care [...]
--- OUTSIDE RECORDS SUMMARY | 2024-12-29 09:33 | XMS_ITS | Encounter Summary ---
Author Organization [facility] Address [facility] [place] [address] Care Team Providers Care Senior Cost Analyst Name Role Phone Kwesi Hernandez Unavailable [phone] Lesli Whatley BILLIARD PLAYER Unavailable [phone] Lesli Whatley BILLIARD PLAYER Primary Care Provider [phone] Lian Acosta BENZOL STILL OPERATOR.BILLIARD PLAYER Unavailable [phone] Lazaro Peck MD Unavailable Source Comments In the event this information is protected by the Federal Confidentiality of Alcohol and Drug AbusePatient Records regulations: The Federal rules restrict any use of the information to criminally investigate or prosecute any alcohol or drug abuse patient.[facility] Encounter Details Date Type Department Care Team (Late st Contact Info) Description 11/29/2019 Patient Msg Gastroenterology [address] [place] [address] Ann Jordan BENZOL STILL OPERATOR.BILLIARD PLAYER [address] [place], [place] [phone] Stomach medications Social History Tobacco Use Types [...] 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 Not on file [...] on filedocumented in this encounter Care Teams Senior Cost Analyst Relationship Specialty Start Date End Date Lesli Whatley, BILLIARD PLAYER [address] [place] [address] PCP - General Family Medicine 08/10/18 Kwesi Hernandez [address] [facility] [place] [address] Pain Management 09/17/14 Lesli Whatley, BILLIARD PLAYER [address] [place] [address] Referring Family Medicine 08/08/18 Lian Acosta APRN.BILLIARD PLAYER [address] [place] [address] Gastroenterology 06/16/23 Lazaro ePck MD [address] [facility] [address] [place] [address] Gastroenterology 06/16/23 documented as of this encounter
--- OUTSIDE RECORDS SUMMARY | 2024-12-29 09:33 | XMS_ITS | Clinical Summary ---
Author Organization [facility] Address [address] [facility] [place] [address] Care Team Providers Care Tank Worker Name Role Phone Unavailable Primary Care Provider Unavailabl e Source Comments The following information is NOT included in Care Everywhere downloads:Psychiatric notes, ECG results, Cardiac Rehab notes, Pulmonary Function notes, data from SmartForms (includes but not limited toPregnancy data,audiograms, eye exams, pre-surgical evaluation notes, well-child exam data).[facility] Allergies Active Allergy Reactions Criticality Noted Date Comments Bandage Tape 11/13/2016 Amoxicillin-Pot Clavulanate 11/14/19 17 Clindamycin 11/13/2016 Latex 11/13/2016 Naproxen 11/13/2016 Prednisone 11/13/2016 Immunizations Immunization Administration Dates Next Due Influenza, Injectable, MDCK, Quadrivalent, Preservative Free (JWX=465) 03/30/2017 Influenza, injectable, quadr ivalent, preservative free (HDE=827) 02/23/2018 Social History Tobacco Use Types Packs/Day Years Used Date Smoking Tobacco: Former Smokeless Tobacco: Never Comments:quit 18 weeks ago Comments Unknown Sex and Gender Information Value Date Recorded Sex Assigned at Not on file Legal Sex Female 4:49 PM EDT Gender Identity Not on file Sexual Orientation Not on file Last Filed Vital Signs Vital Sign Reading Time Taken Comments Blood Pressure 106/60 11/13/2016 10:01 AM EDT Pulse 63 11/13/2016 10:01 AM EDT Temperature 36.9 C (98.4 F) 11/13/2016 10:01 AM EDT Respiratory Rate 18 11/13/2016 10:01 AM EDT Oxygen Saturation - - Inhaled Oxygen Concentration - - Weight 70.8 kg (156 lb) 11/13/2016 10:01 AM EDT Height 165.1 cm (5' 5 ) 11/13/2016 10:01 AM EDT Body Mass Index 25.96 11/13/2016 10:01 AM EDT Plan of Treatment Health Maintenance Due Date Last Done Comments HIV Test 01/01/1999 Hepatitis C Antibody 01/01/2002 Tdap Booster 01/01/2002 Hepatitis A (HAV) Vaccine (optional start 19+ years) 01/01/2003 Hepatitis B (HBV) Vaccine (1 of 3 - 19+ 3-dose series) 01/01/2003 Pap Smear 01/01/2005 HPV Vaccine (optional start 27-45 years) 01/01/2011 Annual Wellness Visit (G0438) 10/31/2017 COVID-19 Vaccine ( - 2023-2 5 season) 2024 Mammography 2024 Influenza Vaccine (#1) 2025 8, 03/30/2017 Shingles (RZV) Vaccine (1 of 2) 01/01/2034 Pneumococcal Vaccine(s) Aged Out No l onger eligible based on patient's age to complete this topic Insurance [facility] MEDICAID MEDICARE
--- OUTSIDE RECORDS SUMMARY | 2024-12-29 09:33 | XMS_ITS | Encounter Summary ---
Author Organization [facility] Address [address] [place] [address] Care Team Providers Care Blankmaker Name Role Phone Nica Alvarado Primary Care Provider [phone] Encounter Details Date Type Department Care Team (Late Contact Info) Description 12/18/2024 Bamboo flowsheet [facility] [address] [place] [address] Gretel Burton PA [address] [place] [address] Social History Tobacco Use Types Packs/Day Years [...] EDT Office Visit [facility] [address] [facility] [place] [address] Riley King DO [address] [facility] [address] [place] [address] documented as of this encounter Visit Diagnoses Not on filedocumented in this encounter Care Teams Blankmaker Relationship Specialty Start Date End Date Nica Alvarado DO [address] [place] [address] PCP - General Family Medicine 10/09/22 documented as of this encounter
--- OUTSIDE RECORDS SUMMARY | 2024-12-29 09:34 | XMS_ITS | Encounter Summary ---
Author Organization [facility] Address [address] [place] [address] Care Team Providers Care Managing Director Atlas Name Role Phone Kwesi Hernandez Unavailable [phone] Lesli Whatley HIGH SCHOOL SPORTS COACH Unavailable Lesli Whatley HIGH SCHOOL SPORTS COACH Primary Care Provider Lian Acosta APRN.HIGH SCHOOL SPORTS COACH Unavailable Lazaro Peck MD Unavailable Source Comments In the event this information is protected by the Federal Confidentiality of Alcohol and Drug AbusePatient Records regulations: The Federal rules restrict any use of the information to criminally investigate or prosecute any alcohol or drug abuse patient.[facility] Encounter Details Date Type Department Care Team (Late st Contact Info) Description 11/14/2019 Patient [facility] [address] [place], [place] [id number] Bonifacio Serrano MD [address] [place] [address] hip surgery info Social History [...] 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 Not [...] on filedocumented in this encounter Care Teams Managing Director Atlas Relationship Specialty Start Date End Date Lesli Whatley, HIGH SCHOOL SPORTS COACH [address] [place] [phone] PCP - General Family Medicine 08/10/18 Kwesi Hernandez [address] [facility] [place], [place] [address] Pain Management 09/17/14 Lesli Whatley, HIGH SCHOOL SPORTS COACH [address] [place] [address] Referring Family Medicine 08/08/18 Lian Acosta APRN.HIGH SCHOOL SPORTS COACH [address] [place] [address] Gastroenterology 06/16/23 Lazaro Peck MD [address] [facility] [address] [place] [address] Gastroenterology 06/16/23 documented as of this encounter
--- OUTSIDE RECORDS SUMMARY | 2024-12-29 09:34 | XMS_ITS | Encounter Summary ---
Author Organization [facility] Address [facility] [place] [address] Care Team Providers Care Bundle Packer Name Role Phone Kwesi Hernandez Unavailable [phone] CLERK Unavailable [phone] CLERK Primary Care Provider [phone] CLERK Unavailable [phone] Lazaro Peck MD Unavailable Source Comments In the event this information is protected by the Federal Confidentiality of Alcohol and Drug AbusePatient Records regulations: The Federal rules restrict any use of the information to criminally investigate or prosecute any alcohol or drug abuse patient.[facility] Encounter Details Date Type Department Care Team (Latest Contact Info) Description 11/21/2019 Patient [facility] [address] [place] [address] Provider, [facility] Dr. 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 [...] Assessment Author Yes 10/16/2014 2:16 PM EDT Lrona Briones LPN documented as of this encounter [...] on filedocumented in this encounter Care Teams Bundle Packer Relationship Specialty Start Date End Date Lesli Whatley, APPELLATE COURT CLERK [address] [place], [place] [address] [address] PCP - General Family Medicine 08/10/18 Kwesi Hernandez [address] [place] [address] Pain Management 09/17/14 Lesli Whatley, APPELLATE COURT CLERK [address] [place] [address] Referring Family Medicine 08/08/[address] CLERK [address] [facility] [address] [place] [address] Gastroenterology 06/16/23 Lazaro Peck MD [address] [place] [address] [address] [place] [address] Gastroenterology 06/16/23 documented as of this encounter
[2024-12-29 09:43] LABS: Hematocrit 41.7 % (36.0-48.0); Hemoglobin 14.7 g/dL (12.0-16.0); Immature Granulocytes Abs Auto 0.04 10^3/uL (0.00-0.03); Immature Granulocytes Pct Auto 0.6 % (0.0-0.5); Lymphocytes Absolute Auto 2.5 10^3/uL (1.2-3.8); Mean Corpuscular HGB Conc 35.3 g/dL (29.9-35.2); Mean Corpuscular Hemoglobin 32.2 pg (26.7-34.0); Mean Corpuscular Volume 91.4 fL (81.0-99.0); Platelet Count 230 10^3/uL (150-450); Red Blood Count 4.56 10^6/uL (4.20-5.40); White Blood Count 7.2 10^3/uL (4.0-11.0)
--- NOTE | 2024-12-29 11:57 | PM.ONB ---
Brief Operative Note Date of procedure: 12/29/24 Pre-op diagnosis general: pelvic pain Post-op diagnosis: same as pre-op Procedure: NAME OF PROCEDURE: [diagnostic laparoscopy ] PROCEDURE: The patient was taken back to the Operating Room where she was placed in dorsal lithotomy position after given general anesthesia. The patient was prepped and draped in normal sterile fashion. A sponge stick was placed into the patient's vagina. Attention was turned to the patient's abdomen, where a small umbilical incision was made. The fascia was tented using Melissa clamps and the fascia was entered sharply. Confirmation of intraabdominal placement of the 10 mm port was confirmed under direct visualization using a laparoscope. The patient's abdomen was then insufflated using CO2 gas with approximately 4 liters. A second port was placed left laterally, this was done under direct visualization with a 5 mm port. Survey of the patient's abdomen demonstrated normal liver and gallbladder. Survey of the patient's pelvic anatomy demonstrated absent tubes and uterus. normal appearing lt ovary, absent rt ovary. significant fluid in posterior culdesac suspicious for ovarian cyst rupture. No endometrial implants could be noted, no evidence of any pelvic disease was seen, normal appearing pelvic cavity. All instruments were removed from the patient's abdomen. The patient's abdomen was deinsufflated of CO2 gas. The patient tolerated the procedure well. Sponge stick was removed from the patient's vagina. The patient's infraumbilical fascia was closed using #0 Vicryl on a GI needle. The patient's skin was closed laterally and infraumbilically using 4-0 Vicryl. The patient tolerated the procedure well. Sponge, lap and needle counts were correct x 2. The patient was taken to Recovery Room in stable condition. Anesthesia: EDWIGEA Surgeon: Riley King Kindergartners Helper: Kianna Castrejon Estimated blood loss (mL): 5 Pathology: other (pelvic fluid) Condition: stable Disposition: floor Urinary Catheter Management Urinary Catheter Management Urethral: Cath placed during this visit: no
[2024-12-29] MEDS: HYDROCODONE/ACET 5-325 MG TABLET 1 TAB PO (12:29)
--- NOTE | 2024-12-29 12:33 | PC.NURSE ---
Offered heat to apply to abdomen. Patient refused. Patient states sometimes it is better to just leave it alone.
== END 2024-12-29 13:30 | disposition home or self-care (01) ==
LOC: SURGOUT 09:31
PROVIDERS: Visit Provider Obstetrics & Gynecology
PROC: (CPT 49320; principal; 2024-12-29 11:45)
DX: R10.2 Pelvic and perineal pain (principal); N94.89 Other specified conditions associated with female genital organs and menstrual cycle; Z87.42 Personal history of other diseases of the female genital tract; Z90.721 Acquired absence of ovaries, unilateral; Z90.49 Acquired absence of other specified parts of digestive tract; Z90.710 Acquired absence of both cervix and uterus; F17.210 Nicotine dependence, cigarettes, uncomplicated; M79.7 Fibromyalgia; K21.9 Gastro-esophageal reflux disease without esophagitis; K75.9 Inflammatory liver disease, unspecified; M19.90 Unspecified osteoarthritis, unspecified site; F41.9 Anxiety disorder, unspecified; F31.9 Bipolar disorder, unspecified
CPT/HCPCS: 49320; 36415; 85025; 88112; 88305; J1100; J2250; J2405; J2704; J3010